=== PATIENT | male | born 1965 | race Caucasian/White ===

== ENCOUNTER 2020-11-13 06:17 | Outpatient (REF) | payer OTHER, SELFPAY ==
[2020-11-13 07:37] LABS: Blood Urea Nitrogen 5 mg/dL (9-16); Estimated Glomerular Filt Rate > 60
== END 2020-11-13 06:18 | disposition home or self-care (01) ==
LOC: HO.LAB 06:17
PROVIDERS: PCP Nurse Practitioner Family; Visit Provider Psychiatry & Neurology Neurology
DX: G40.909 Epilepsy, unspecified, not intractable, without status epilepticus (principal); F10.10 Alcohol abuse, uncomplicated
CPT/HCPCS: 36415; 82565; 84520

== ENCOUNTER 2020-11-17 08:16 | Outpatient (REF) | payer OTHER, SELFPAY ==
--- NOTE | ~2020-11-17 | MR_ITS ---
EXAMINATION: MR BRAIN WITHOUT AND WITH CONTRAST CLINICAL INFORMATION: Seizure disorder. COMPARISON: CT head from 07/02/2019. TECHNIQUE: MRI of the brain was obtained using routine sequences without and following the administration of 7.5 mL of Gadavist intravenous contrast. FINDINGS: No focal restricted diffusion is demonstrated to suggest acute or subacute cerebral ischemia. There is a 0.6 cm lesion within the left lentiform nucleus that demonstrates central T2 hyperintensity and peripheral T2 hypointensity with susceptibility artifact, consistent with a small cavernoma. There is also a small focus of encephalomalacia adjacent cortical susceptibility artifact in the left temporal lobe. Mild basal ganglia mineralization. No evidence of acute hemorrhagic products on heme-sensitive imaging. Scattered periventricular, deep white matter, and brainstem T2 FLAIR hyperintensity most commonly seen with moderate underlying microangiopathy. Proportional prominence of the ventricles and sulcal spaces without evidence of obstructive hydrocephalus. No abnormal mass effect. No midline shift. The hippocampi are symmetric in size, contour, and signal intensity. The temporal horns appear symmetric. However, the hippocampi qualitatively appear decreased in volume bilaterally. Normal appearance of the pituitary gland. Normal positioning of the cerebellar tonsils. Normal arterial and venous vascular flow voids are present. No abnormal contrast enhancement. Normal, homogeneous marrow signal. Mild mucosal thickening of the paranasal sinuses. No signal abnormalities within the mastoids. MR/MR head/brain wo/w con IMPRESSION: 1. No acute intracranial abnormalities. No abnormal intracranial enhancement. 2. Moderate nonspecific white matter changes most commonly seen with microangiopathy. Generalized cerebral volume loss. 3. Symmetric appearance of the hippocampi. However, the hippocampi qualitatively appear decreased in volume. This may be related to generalized cerebral volume loss. If clinically indicated, quantitative volume studies may further characterize the possibility of mesial temporal focused neurodegeneration. 4. 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
== END 2020-11-17 08:17 | disposition home or self-care (01) ==
LOC: HO.MRI 08:16
PROVIDERS: PCP Nurse Practitioner Family; Visit Provider Psychiatry & Neurology Neurology
DX: G40.909 Epilepsy, unspecified, not intractable, without status epilepticus (principal)
CPT/HCPCS: 70553; A9585

== ENCOUNTER 2021-04-27 10:34 | Outpatient (REF) | payer OTHER, SELFPAY ==
[2021-04-27 11:49] LABS: Appearance Urine CLEAR; Color Urine YELLOW; Glucose Urine UA NEG (NEG); Leukocyte Esterase Urine NEG (NEG); Nitrite Urine NEG (NEG); UACC Culture Trigger NO; Urine Blood TRACE (NEG); Urine Ketones 5 MG/DL (NEG); Urine Protein 2+ MG/DL (NEG-TRACE)
[2021-04-27 12:17] LABS: Alanine Aminotransferase 31 U/L (0-40); Albumin Level 4.4 g/dL (3.5-5.0); Alkaline Phosphatase 101 U/L (39-117); Anion Gap 16 (12-20); Aspartate Amino Transferase 70 U/L (5-37); Bilirubin Total 0.6 mg/dL (0.0-1.0); Blood Urea Nitrogen 13 mg/dL (9-16); Calcium 9.7 mg/dL (8.4-10.2); Carbon Dioxide 22 mmol/L (22-29); Chloride 98 mmol/L (96-108); Cholesterol 213 mg/dL; Estimated Glomerular Filt Rate > 60; Glucose Fasting 123 mg/dL (60-99); HDL Cholesterol 89 mg/dL; LDL Cholesterol Calculated 98 mg/dl; Sodium 132 mmol/L (135-145); Total Protein 8.2 g/dL (6.5-8.0); Triglycerides 131 mg/dL
[2021-04-27 12:28] LABS: RBC Urine 0-2 /HPF (0); WBC Urine 0 /HPF (0-4)
[2021-04-27 12:41] LABS: Prostate Specific Antigen Scr 0.79 ng/mL (<0.05-4.0); TSH reflex Free T4 1.27 uIU/mL (0.32-4.0)
== END 2021-04-27 10:35 | disposition home or self-care (01) ==
LOC: HO.HMGCLDS 10:34
PROVIDERS: PCP Nurse Practitioner Family; Visit Provider Nurse Practitioner Family
DX: Z12.5 Encounter for screening for malignant neoplasm of prostate (principal); R56.9 Unspecified convulsions; F10.10 Alcohol abuse, uncomplicated
CPT/HCPCS: 36415; 80053; 80061; 81001; 84153; 84443

== ENCOUNTER 2021-06-04 12:33 | Outpatient (REF) | payer OTHER, SELFPAY ==
[2021-06-04 15:16] LABS: MANUAL DIFF FLAG NO
[2021-06-04 15:28] LABS: Basophils Absolute Auto 0.1 X10*3/uL (0.0-0.2); Basophils Percent Auto 1.2 % (0-2); Eosinophils Absolute Auto 0.3 X10*3/uL (0.0-0.4); Eosinophils Percent Auto 3.8 % (0-4); Hematocrit 42.9 % (42.0-52.0); Hemoglobin 14.2 g/dl (14.0-18.0); Imm Gran Abs Auto 0.02 X10*3/uL (0.00-0.03); Imm Gran Pct Auto 0.3 % (0.0-0.4); Lymphocytes Absolute Auto 1.7 X10*3/uL (1.2-4.9); Lymphocytes Percent Auto 26.2 % (20-40); Mean Corpuscular HGB Conc 33.1 g/dl (31.0-36.0); Mean Corpuscular Hemoglobin 29.7 pg (27.0-33.0); Mean Corpuscular Volume 89.7 fL (80.0-98.0); Mean Platelet Volume 10.5 fL (9.4-12.4); Monocytes Absolute Auto 0.8 X10*3/uL (0.1-1.2); Monocytes Percent Auto 12.6 % (2-11); Neutrophils Absolute Auto 3.6 x10*3/uL (2.0-8.3); Neutrophils Percent Auto 55.9 % (45-73); Platelet Count 115 X10*3/uL (160-400); Red Blood Count 4.78 X10*6/uL (4.60-5.80); Red Cell Distribution Width 13.8 % (11.0-16.0); White Blood Count 6.5 X10*3/uL (4.8-10.8)
[2021-06-04 15:33] LABS: Iron 75 mcg/dL (45-160); Percent Iron Saturation 17 % (15-50); Total Iron Binding Capacity 429 mcg/dL (228-428); Unsaturated Iron Binding 354 ug/dL
[2021-06-04 16:01] LABS: Ferritin 30 ng/mL (20-250)
== END 2021-06-04 12:34 | disposition home or self-care (01) ==
LOC: HO.HMGCLDS 12:33
PROVIDERS: PCP Nurse Practitioner Family; Visit Provider Nurse Practitioner Family
DX: E83.19 Other disorders of iron metabolism (principal)
CPT/HCPCS: 36415; 81256; 82728; 83540; 85025

== ENCOUNTER 2024-05-14 14:38 | Outpatient (AMB) | payer OTHER, SELFPAY ==
--- NOTE | 2024-05-14 14:40 | A.OFFPC_ITS ---
Vital Signs 05/14/24 14:42 Height 5 ft 5 in Weight 177 lb BMI 29.5 BP 142/80 H Blood Pressure Location Rt brachial Position Sitting Pulse 86 Pulse Source Pulse Oximeter Pulse Oximetry (%) 97 Intake Visit Reasons: Regular visit Intake Note: pt is here for follow up, requesting referral for podiatry. Allergies cat dander [CAT] Allergy (Unknown, Verified 05/14/24 15:03) WATERY EYES Medication List - Last Reconciled 05/14/24 by VERN Ferrari clonidine HCl 0.1 mg PO TID folic acid 1 mg PO DAILY gabapentin 300 mg PO DAILY 90 days lisinopril 10 mg PO DAILY 90 days melatonin 6 mg PO BEDTIME multivitamin with folic acid 400 mcg (Daily-Aure (with folic acid)) 1 tab PO DAILY naproxen 500 mg PO BID PRN sertraline 150 mg PO DAILY thiamine HCl (vitamin B1) 200 mg PO DAILY trazodone 100 mg PO BEDTIME PRN 30 days Tobacco use date assessed: 05/14/24 Dental Screening Dental Screen Date: 05/14/24 Did you have a dental visit in the last 12 months?: Yes Did you have a dental problem in the last 6 months where you did not have access to dental care?: No Was dental information given to patient?: Patient has dentist HPI Regular visit HPI Details History of Present Illness The patient is a 58-year-old male presenting with a recent episode of pneumothorax and bacterial pneumonia/sepsis. The condition began approximately two weeks ago with severe coughing and an inability to stand due to weakness. The patient visited [facility] in [place], [place], and was told he could not be released due to the severity of his condition, which included septicemia. Imaging showed multiple pockets of bacteria in the lungs, suggesting pneumonia complicated by a pneumothorax. The patient remained in the ICU for six days and was treated with intravenous antibiotics. During the course of his treatment, he received three chest tubes to drain fluid and underwent surgery to clear the infection, at which point minimally invasive techniques were insufficient, necessitating an open approach. The patient was discharged a week prior to this visit and is currently on oral antimicrobial therapy with Augmentin. NOTE: documentation produced from pt and his notes from the hospital. Missing medical notes (peer to peer). #2 neuropathy of bilat feet x years, it's only getting worse . 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 - Engages in recreational hockey, had an alcohol slip-up post-game after a year and a half of sobriety. - Suffers from neuropathy, previously ma intained with gabapentin. - Reports weight changes but specifics a re not detailed. Review of Systems - General: Reports night sweats and chil ls. denies any CP - Respiratory: Reports occasional coughi ng; no dyspnea currently. - Neurological: Denies residual effects from prior stroke. - Musculoskeletal: Reports chronic foot numbness (bilat). Physical Exam A+o S1s2 -lungs slightly dim to right base/right side, though moving air bilat - Respiratory- Right upper lateral torso with large healing stapled incision, well approximated with no signs of infection. smaller laceration with ameena (just inferior to large incision), all well approximated without signs of infection. 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 Results - Labs: Not detailed during the discussi on. - Imaging: Chest imaging showed pneumoth orax and pneumonia with bacterial pockets. - Procedures: Three chest tubes placed f or fluid drainage; surgery for infection clearance. Plan - For pneumothorax and bacterial pneumon ia: Continue Augmentin. Follow-up with thoracic specialists for further evaluation and staple removal tomorrow. - For neuropathy: Recommend EMG testing to evaluate nerve function and source of neuropathy. - Coordinate with thoracic specialist to ensure comprehensive continuity of care and to address ongoing symptoms. - Discussed the potential impact of alco hol use on health and importance of adherence to current treatment. -IS given to pt to use at home Patient was informed and verbally consented to the use of an ambient scribe for clinic note documentation during this visit. Discussion Notes I discussed with the patient the severity of his recent illness, the necessity of hospital admission, and the seriousness of the pneumothorax and bacterial pneumonia. We reviewed the treatment approach, including the ICU stay and the surgical procedure. The risks associated with both his initial presentation and the surgical intervention were highlighted, emphasizing the need for adherence to follow-up care and medical advice. We outlined the plan for an upcoming thoracic follow-up and the continuation of oral antibiotics. We discussed neuropathy and planned EMG testing to elucidate underlying issues. I reiterated the importance of maintaining sobriety and monitoring any symptoms that might necessitate earlier evaluation. Patient Instructions - Continue taking Augmentin as prescribe d to complete the full course of antibiotics. - Attend the follow-up appointment with the thoracic specialist and provide them with necessary documentation and contact information. - Monitor incision sites for signs of in fection such as increased redness, swelling, or discharge and report any concerning changes. - Use the incentive spirometer as instru cted to aid lung recovery. - Schedule EMG testing for neuropathy ev aluation. - Maintain adherence to medical advice r egarding lifestyle modifications, specifically regarding alcohol consumption. - Return for a follow-up appointment in three months or sooner if symptoms worsen. [facility] Medical History (Updated 05/14/24 @ 15:20 by Tyler Chan [facility]) Stroke Barretts esophagus Cerebral aneurysm Chronic GERD Hypertension Peripheral neuropathy Alcohol withdrawal seizure Surgical History History of torn meniscus of right knee Family History Father Aneurysm Mother No problems noted. 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 1. Little interest or pleasure in doing things: several days 2. Feeling down, depressed, or hopeless: several days 3. Trouble falling or staying asleep, or sleeping too much: several days 4. Feeling tired or having little energy: several days 5. Poor appetite or overeating: several days 6. Feeling bad about yourself - or that you are a failure or have let yourself or your family down: not at all 7. Trouble concentrating on things, such as reading the newspaper or watching television: not at all 8. Moving or speaking so slowly that other people could have noticed. Or the opposite - being so fidgety or restless that you have been moving around a lot more than usual: several days 9. Thoughts that you would be better off or of hurting yourself in some way: not at all Total score: 6 Depression Screening Interpretation: Negative Depression Screening Done: Yes 99531 - PHQ-9 Billing: Yes Source: Developed by Drs. Jesús Christy, Maye Munoz, Vincent Casillas and colleagues, with an educational neelam from [employer]. Thrive Questionnaire Date Thrive assessed: 05/14/24 I am a: Patient What is your living situation today?: I have a steady place to live Within the past 12 months, did the food you bought not last and you didn't have the money to get more?: Never true Within the past 12 months, did you worry whether your food would run out before you got money to buy more?: Never true Do you have trouble paying for medicines?: No Do you have trouble getting transportation to medical appointments?: No Do you have trouble paying your heating and electricity bill?: No Do you have trouble taking care of your child, family member or friend?: No Do you have trouble with day-to-day activities such as bathing, preparing meals, shopping, managing finances, etc.?: No Are you currently unemployed and looking for a job?: No Are you interested in more education?: No Please select the resources that you would like help with: None Currently or been in a relationship where the following occur: No concerns reported THRIVE Score: 0 AUDIT C Alcohol Use Questionnaire (AUDIT-C) 1. How often do you have a drink containing alcohol?: Monthly or less 2. How many drinks containing alcohol do you have on a typical day when you are drinking?: 1 or 2 3. How often do you have six or more drinks on one occasion?: Less than monthly Total Score: 2 Score Reviewed/Action Taken: Yes JARED-7 AMB Questionnaire JARED-7 Date JARED - 7 assessed: 05/14/24 Feeling nervous, anxious, or on edge: 1 = Several days Not being able to stop or control worryin = Not at all Worrying too much about different things: 0 = Not at all Trouble relaxin = Several days Being so restless that it is hard to sit still: 1 = Several days Becoming easily annoyed or irritable: 0 = Not at all Feeling afraid as if something awful might happen: 0 = Not at all Total JARED-7 score (0-4 normal; 5-9 mild; 10-14 moderate; 15-21 severe): 3 Source: Developed by Drs. Jesús Christy, Maye Munoz, Vincent Casillas and colleagues, with an educational neelam from [employer]. JARED-7 Assessment Billing JARED-7 Assessment Tool: JARED-7 Assessment 50159 Physical exam (Primary Care) Vital Signs: Last Vital Signs Pulse 86 05/14/24 14:42 BP 142/80 H 05/14/24 14:42 Pulse Ox 97 05/14/24 14:42 BMI result Body Mass Index 29.5 Tobacco/Smoking Status: Tobacco use Status Tobacco use date assessed 05/14/24 05/14/24 14:43 Patient Tobacco Use Status Never used Tobacco 05/14/24 14:43 e-Cigarette/Vaping Use Never Used 05/14/24 14:43 PHQ-9: PHQ-9 Score PHQ-9: Total score 6 05/14/24 14:43 Depression Screening Interpretation: Negative Thrive Assessment: Date of Thrive Assessment Date Thrive assessed 05/14/24 05/14/24 14:43 Currently or been in a relationship where the following occur: No concerns reported Coding Level of Care Code Est Pt Level 4 (68032) Diagnoses Pneumothorax J93.9 Sepsis A41.9 Vitamin D deficiency E55.9 Peripheral neuropathy G62.9 Additional Codes JARED-7 Assessment Billing - JARED-7 Assessment Tool: JARED-7 Assessment 34621 ([id number]) PHQ-9 - 23618 - PHQ-9 Billing: Yes ([id number]) Assessment & Plan Assessment & Plan (1) Pneumothorax: Code(s): J93.9 - Pneumothorax, unspecified Category: Medical (2) Sepsis: Code(s): A41.9 - Sepsis, unspecified organism Category: Medical (3) Vitamin D deficiency: Code(s): E55.9 - Vitamin D deficiency, unspecified Category: Medical (4) Peripheral neuropathy: Code(s): G62.9 - Polyneuropathy, unspecified Category: Medical Plan . Orders: Orders TSH reflex Free T4 Today A41.9 - Sepsis, unspecified organism, J93.9 - Pneumothorax, unspecified UA CC w/rflx Micro + Cult Today A41.9 - Sepsis, unspecified organism, J93.9 - Pneumothorax, unspecified Lipid Panel Today A41.9 - Sepsis, unspecified organism, J93.9 - Pneumothorax, unspecified Vitamin D 25-OH Total Today E55.9 - Vitamin D deficiency, unspecified NE nerve conduction velocity Today G62.9 - Polyneuropathy, unspecified Complete Blood Count Auto Diff Today A41.9 - Sepsis, unspecified organism, J93.9 - Pneumothorax, unspecified Comprehensive [place]. Panel Fast Today A41.9 - Sepsis, unspecified organism, J93.9 - Pneumothorax, unspecified Prostate Specific Antigen Scr Today A41.9 - Sepsis, unspecified organism, E55.9 - Vitamin D deficiency, unspecified, J93.9 - Pneumothorax, unspecified NE electromyogram (EMG) Today G62.9 - Polyneuropathy, unspecified
[2024-05-14 14:42] VITALS: BP 142/80; PULSE 86; O2SAT 97; BMI 29.5
== END 2024-05-14 15:24 | disposition home or self-care (01) ==
PROVIDERS: PCP Nurse Practitioner Family; Visit Provider Nurse Practitioner Family
DX: J93.9 Pneumothorax, unspecified (principal); A41.9 Sepsis, unspecified organism; E55.9 Vitamin D deficiency, unspecified; G62.9 Polyneuropathy, unspecified

== ENCOUNTER → 2024-05-14 14:38 | Outpatient (BNVA) | payer OTHER, SELFPAY | PROVIDERS: PCP Nurse Practitioner Family; Visit Provider Nurse Practitioner Family | DX: J93.9 Pneumothorax, unspecified (principal); A41.9 Sepsis, unspecified organism; J15.9 Unspecified bacterial pneumonia; G62.9 Polyneuropathy, unspecified; E55.9 Vitamin D deficiency, unspecified | CPT/HCPCS: 96127 ==

== ENCOUNTER 2024-07-04 13:28 | Outpatient (REF) | payer OTHER, SELFPAY ==
--- NOTE | 2024-07-04 13:32 | EMG_ITS ---
Chief complaint: Worsening feet numbness, not radicular, denies back pain Diagnosed peripheral neuropathy many years ago by Dr. Guillen. Reason for referral: Evaluate for peripheral neuropathy Referred by: Tyler Guy NP Procedure done: Bilateral lower extremity NCS/EMG Precautions and/or limitations: None The limb temperature was monitored continuously and remained between 32-36 degrees C during the performance of the NCS. Nerve Conduction Studies Anti Sensory Summary Table ?Stim Site NR Onset (ms) Norm Onset (ms) Peak (ms) Norm Peak (ms) O-P Amp (?V) Norm O-P Amp Site1 Site2 Delta-0 (ms) Dist (cm) Matt (m/s) Norm Matt (m/s) Left Sural Anti Sensory (Lat Mall) Calf NR <4.0 >5.0 Calf Lat Mall 14.0 Right Sural Anti Sensory (Lat Mall) Calf NR <4.0 >5.0 Calf Lat Mall 14.0 Motor Summary Table ?Stim Site NR Onset (ms) Norm Onset (ms) O-P Amp (mV) Norm O-P Amp iAmp (mV) Amp (1st) (%) Site1 Site2 Delta-0 (ms) Dist (cm) Matt (m/s) Norm Matt (m/s) Right Peroneal Motor (Ext Dig Brev) Ankle ? 4.0 <4.0 6.9 >2.5 8.7 100.0 Ankle Ext Dig Brev 4.0 0.0 B Fib ? 10.7 6.1 7.4 88.4 B Fib Ankle 6.7 28.5 43 >40 Poplt ? 11.6 5.9 7.2 85.5 Poplt B Fib 0.9 5.0 56 >40 Left Tibial Motor (Abd [place] Brev) Ankle ? 3.6 <5 5.8 >2.5 8.1 100.0 Ankle Abd [place]le[place] Brev 3.6 0.0 Knee ? 11.9 4.5 6.4 77.6 Knee Ankle 8.3 36.0 43 >40 Right Tibial Motor (Abd [place] Brev) Ankle ? 3.4 <5 11.4 >2.5 15.6 100.0 Ankle Abd [place] Brev 3.4 0.0 Knee ? 10.9 8.6 11.8 75.4 Knee Ankle 7.5 40.0 53 >40 EMG ?Side Muscle Nerve Root Ins Act Fibs Psw Amp Dur Poly Recrt Int Pat Comment Right AbdHallucis MedPlantar S1-2 Nml Nml Nml Nml Nml 0 Nml Complete Right AntTibialis Dp Br Peron L4-5 Nml Nml Nml Nml Nml 0 Nml Complete Right PostTibialis Tibial L5, S1 Nml Nml Nml Nml Nml 0 Nml Complete Right MedGastroc Tibial S1-2 Nml Nml Nml Nml Nml 0 Nml Complete Right VastusMed Femoral L2-4 Nml Nml Nml Nml Nml 0 Nml Complete Left AbdHallucis MedPlantar S1-2 Incr 1+ 1+ Nml Nml 0 Nml Complete Left AntTibialis Dp Br Peron L4-5 Nml Nml Nml Nml Nml 0 Nml Complete Left PostTibialis Tibial L5, S1 Nml Nml Nml Nml Nml 0 Nml Complete Left MedGastroc Tibial S1-2 Nml Nml Nml Nml Nml 0 Nml Complete Left VastusMed Femoral L2-4 Nml Nml Nml Nml Nml 0 Nml Complete Paraspinal EMG ?Side Muscle Nerve Root Ins Act Fibs Psw Comment Right Lumbar Upper Rami Nml Nml Nml Right Lumbar Mid Rami Nml Nml Nml Right Lumbar Lower Rami Nml Nml Nml Left Lumbar Upper Rami Nml Nml Nml Left Lumbar Mid Rami Nml Nml Nml Left Lumbar Lower Rami Nml Nml Nml FINDINGS: Bilateral sural nerves absent response. All other nerves tested were within normal. Concentric needle EMG was performed in selected muscles of the bilateral lower extremity and lumbar paraspinals. Study revealed signs of electric abnormalities as shown in the table above. Left AH showed increased insertional activity, PSWs and fibrillations. No denervation on lumbar paraspinals. IMPRESSION: 1. This is an abnormal study. 2. There is electrodiagnostic evidence for sensorimotor axonal distal/peripheral neuropathy. 3. There is no electrodiagnostic evidence for peroneal neuropathy, tibial neuropathy. lumbosacral plexopathy, or lumbar radiculopathy. Thank you for your kind referral. Rachel Saenz MD, ELIZA Board Certified, [place] [employer] and [employer] (ABPMR) Board Certified, [place] Board of Electrodiagnostic Medicine (ABEM) CODIN 20001 x 2 MTDD
== END 2024-07-04 13:29 | disposition home or self-care (01) ==
LOC: HO.NEURO 13:28
PROVIDERS: PCP Nurse Practitioner Family; Referring Provider Hospitalist; Visit Provider Nurse Practitioner Family
DX: G62.9 Polyneuropathy, unspecified (principal); R20.0 Anesthesia of skin
CPT/HCPCS: 95886; 95909

== ENCOUNTER → 2024-07-04 13:32 | Outpatient (BNV) | payer OTHER, SELFPAY | PROVIDERS: PCP Nurse Practitioner Family; Referring Provider Hospitalist; Visit Provider Physical Medicine & Rehabilitation | DX: G62.89 Other specified polyneuropathies (principal) | CPT/HCPCS: 95886; 95909 ==

== ENCOUNTER 2024-08-14 14:16 | Outpatient (AMB) | payer OTHER, SELFPAY ==
[2024-08-14 14:20] VITALS: BP 128/80; PULSE 68; TEMP 36.6; O2SAT 97
--- NOTE | 2024-08-14 14:20 | A.OFFPC_ITS ---
Vital Signs 08/14/24 14:20 Height 5 ft 5 in Weight 180 lb BMI 30.0 BP 128/80 Blood Pressure Location Lt brachial Position Sitting Pulse 68 Pulse Source Pulse Oximeter Temp 97.8 F Temp Source Oral Pulse Oximetry (%) 97 Intake Visit Reasons: 3 months f/up Allergies cat dander [CAT] Allergy (Unknown, Verified 08/14/24 14:46) WATERY EYES Medication List - Last Reconciled 08/14/24 by Tyler Chan BATH MIX OPERATOR- clonidine HCl 0.1 mg PO TID folic acid 1 mg PO DAILY gabapentin 300 mg PO DAILY 90 days lisinopril 60 mg PO DAILY melatonin 6 mg PO BEDTIME metoprolol succinate ER 50 mg PO BID multivitamin with folic acid 400 mcg (Daily-Aure (with folic acid)) 1 tab PO DAILY naproxen 500 mg PO BID PRN omeprazole 20 mg PO BID sertraline 150 mg PO DAILY thiamine HCl (vitamin B1) 200 mg PO DAILY trazodone 100 mg PO BEDTIME PRN 30 days Tobacco use date assessed: 08/14/24 Dental Screening Dental Screen Date: 08/14/24 Did you have a dental visit in the last 12 months?: Yes Did you have a dental problem in the last 6 months where you did not have access to dental care?: No Was dental information given to patient?: Patient has dentist HPI 3 months f/up HPI Details Chief Complaint The patient expressed concerns regarding the management of his peripheral neuropathy. 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 Gabapentin offers partial relief. The patient was referred to neurology for further evaluation, and a request for a specific neurologist has been made. He also manages essential hypertension with an increased dose of lisinopril, with current control being noted ([facility] 60[facility]). [facility] are [facility], with additional labs scheduled. He has abstained from alcohol for an extended period, with improved cognitive clarity and mood reported. 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 - Regular follow-ups [place] conducte d at the [place]. Health Maintenance - Encouraged to maintain alcohol abstine nce for health benefits. - Advised completion of laboratory evalu ations as planned, ensuring fasting prior to testing. Review of Systems - Neurological: Reports ongoing peripher al neuropathy symptoms despite treatment with gabapentin. Physical Exam General: Cooperative, healthy appearing, comfortable, no acute distress and well developed Orientation: Patient oriented x3 Limitations: No limitations Head: Normal to inspection Ears: Hearing grossly normal bilaterally Nose: Normal external nose present Face and sinus: Normal facial exam Eyes: Appearance normal, both eyes and all related structures Neck: Normal visual inspection and Yes full ROM Respiratory: Normal respiratory effort and able to speak in complete sentences. Clear to auscultation bilaterally Cardiovascular: Regular rate and rhythm. Normal S1 and S2 GI: Normal to inspection. Soft to palpation and nontender Skin: No rashes or lesions noted Neuro: Patient oriented x3 Extremities: Normal to inspection Results - Tests and Diagnostics: Sensory motor a xonal distal peripheral neuropathy confirmed by EMG. Plan The follow-up visit focused on the management of the patient's chronic conditions, including peripheral neuropathy and essential hypertension. Gabapentin continues to be utilized for neuropathy, with the patient seeking consultation with a preferred neurologist, referral made accordingly. Essential hypertension management via increased lisinopril was reviewed, with adequate control observed. Continued abstinence from alcohol has resulted in noticeable improvements in mood and cognitive function, which should be maintained. Laboratory evaluations are scheduled with fasting instructions confirmed. Discussion Notes During our discussion, I reviewed the management and continuation of gabapentin therapy for peripheral neuropathy, acknowledging its efficacy in symptom alleviation. A neurology follow-up with the requested specialist was arranged. I emphasized the importance of continued control of essential hypertension through the increased lisinopril regimen and the significance of fasting for the pending laboratory tests. I advised ongoing alcohol abstinence considering its positive impact on the patient's mental health and overall wellbeing. We discussed scheduling follow-up appointments as needed to assess the therapeutic effect of ongoing interventions and the importance of sharing future [place] lab results for comprehensive care coordination. Patient Instructions - Continue gabapentin as prescribed. - Follow-up with the preferred neurologi st as referral is processed. - Continue lisinopril at 60 mg daily to manage blood pressure. - Schedule and complete labs next week, ensuring to fast beforehand. - Maintain abstinence from alcohol due t o marked benefits in mood and cognition. [facility] Medical History Stroke Barretts esophagus Cerebral aneurysm Chronic GERD Hypertension Peripheral neuropathy Alcohol withdrawal seizure Surgical History History of torn meniscus of right knee Family History Father Aneurysm Mother No problems noted. 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 1. Little interest or pleasure in doing things: not at all 2. Feeling down, depressed, or hopeless: several days 3. Trouble falling or staying asleep, or sleeping too much: more than half the days 4. Feeling tired or having little energy: more than half the days 5. Poor appetite or overeating: more than half the days 6. Feeling bad about yourself - or that you are a failure or have let yourself or your family down: not at all 7. Trouble concentrating on things, such as reading the newspaper or watching television: several days 8. Moving or speaking so slowly that other people could have noticed. Or the opposite - being so fidgety or restless that you have been moving around a lot more than usual: several days 9. Thoughts that you would be better off or of hurting yourself in some way: not at all Total score: 9 Depression Screening Interpretation: Positive (denies any SI or HI, has a psychiatrist, has a therapist) Depression Screening Follow-up: Existing condition Depression Screening Done: Yes 04539 - PHQ-9 Billing: Yes Source: Developed by Drs. Jesús Christy, Maye Munoz, Vincent Casillas and colleagues, with an educational neelam from [employer]. Thrive Questionnaire Date Thrive assessed: 08/14/24 I am a: Patient What is your living situation today?: I have a steady place to live Within the past 12 months, did the food you bought not last and you didn't have the money to get more?: Never true Within the past 12 months, did you worry whether your food would run out before you got money to buy more?: Never true Do you have trouble paying for medicines?: No Do you have trouble getting transportation to medical appointments?: No Do you have trouble paying your heating and electricity bill?: No Do you have trouble taking care of your child, family member or friend?: No Do you have trouble with day-to-day activities such as bathing, preparing meals, shopping, managing finances, etc.?: No Are you currently unemployed and looking for a job?: Yes Are you interested in more education?: Yes Please select the resources that you would like help with: Job search/training Currently or been in a relationship where the following occur: No concerns reported THRIVE Score: 0 AUDIT C Alcohol Use Questionnaire (AUDIT-C) 1. How often do you have a drink containing alcohol?: Monthly or less 2. How many drinks containing alcohol do you have on a typical day when you are drinking?: 1 or 2 3. How often do you have six or more drinks on one occasion?: Never Total Score: 1 Score Reviewed/Action Taken: Yes JARED-7 AMB Questionnaire JARED-7 Date JARED - 7 assessed: 08/14/24 Feeling nervous, anxious, or on edge: 1 = Several days Not being able to stop or control worryin = Several days Worrying too much about different things: 1 = Several days Trouble relaxin = Not at all Being so restless that it is hard to sit still: 0 = Not at all Becoming easily annoyed or irritable: 1 = Several days Feeling afraid as if something awful might happen: 0 = Not at all Total JARED-7 score (0-4 normal; 5-9 mild; 10-14 moderate; 15-21 severe): 4 Source: Developed by Drs. Jesús Christy, Maye Munoz, Vincent Casillas and colleagues, with an educational neelam from [employer]. JARED-7 Assessment Billing JARED-7 Assessment Tool: JARED-7 Assessment 80552 Physical exam (Primary Care) Vital Signs: Last Vital Signs Temp 97.8 F 08/14/24 14:20 Pulse 68 08/14/24 14:20 BP 128/80 08/14/24 14:20 Pulse Ox 97 08/14/24 14:20 BMI result Body Mass Index 30.0 Tobacco/Smoking Status: Tobacco use Status Tobacco use date assessed 08/14/24 08/14/24 14:21 Patient Tobacco Use Status Never used Tobacco 08/14/24 14:21 e-Cigarette/Vaping Use Never Used 08/14/24 14:21 PHQ-9: PHQ-9 Score PHQ-9: Total score 9 08/14/24 14:21 Depression Screening Interpretation: Positive (denies any SI or HI, has a psychiatrist, has a therapist) Depression Screening Follow-up: Existing condition Thrive Assessment: Date of Thrive Assessment Date Thrive assessed 08/14/24 08/14/24 14:21 Currently or been in a relationship where the following occur: No concerns reported Coding Level of Care Code Est Pt Level 3 (59997) Diagnoses Hypertension I10 Peripheral neuropathy G62.9 Additional Codes JARED-7 Assessment Billing - JARED-7 Assessment Tool: JARED-7 Assessment 90212 ([id number]) PHQ-9 - 67478 - PHQ-9 Billing: Yes ([id number]) Assessment & Plan Assessment & Plan (1) Hypertension: Code(s): I10 - Essential (primary) hypertension Category: Medical (2) Peripheral neuropathy: Code(s): G62.9 - Polyneuropathy, unspecified Category: Medical Plan . Medications: Changed From lisinopril 10 mg PO DAILY 90 days 90 tabs 1RF To lisinopril 60 mg PO DAILY
--- OUTSIDE RECORDS SUMMARY | 2024-08-14 17:13 | XMS_ITS | Encounter Summary ---
Author Name [facility] [place] Address [address] [place] [id number] Care Team Providers Care Tool Sharpener Name Role Phone JARROD KOHLER Primary Care Provider Unavailabl e Insurance Providers: [...] Christianson's Name Patient's Relationship to Policy Christianson [facility] CE ORGANIZAT ION [facility]ALT H [facility] Dec 11, 2023 [id number] [phone] NALLELY,LAWRENCE ID PATIENT [facility] CE ORGANIZAT ION FAIRV IEW COMMO NS Nov 24, 2021 [id number] NALLELY,LAWRENCE ID PATIENT [facility] CE ORGANIZAT ION [facility] Sep 11, 2019 [id number] [phone] NALLELY,LAWRENCE ID PATIENT [facility] CE ORGANIZAT ION FAIRV IEW COMMO NS Apr 12, 2012 [id number] [phone] NALLELY,LAWRENCE ID PATIENT OPTUM RX PRESCRIPT ION [facility] PE May 14, 2024 [facility] [id number] [phone] NALLELY,LAWRENCE ID PATIENT OPTUM RX PRESCRIPT ION [facility]/ [facility] Nov 24, 2021 [facility] [id number] [id number] NALLELY,LAWRENCE ID PATIENT OPTUM RX PRESCRIPT ION [facility] [place] Nov 24, 2021 [facility] [id number] [id number] NALLELY,LAWRENCE ID PATIENT OPTUM RX PRESCRIPT ION HEALT H [facility] Sep 11, 2019 [facility] [id number] [phone] NALLELY,LAWRENCE ID PATIENT OPTUM RX PRESCRIPT ION HEALT H [facility] Aug 17, 2004 [facility] [id number] [phone] NALLELY,LAWRENCE ID PATIENT Selected Encounter This section includes the information on record at NH for the Encounter. Date/Time Encounter Type Encounter Description Reason Pro vider Source Jul 16, 2024 02:19 PM Outpatient Encounter PRIMARY CARE/MEDICINE IHE Encounter Template Text not used by NH Plan of Treatment: Future Appointments (+ 6 months) and Future Tests (+/- 45 days) The Plan of Treatment section includes future care activities for the patient from all NH treatmentfacilities. This section includes future appointments and future orders which are active, pending or scheduled. Future Appointments This section includes appointments that were scheduled to occur 6 months from the date of the Encounter, up to a maximum of 20 appointments. The data comes from all NH treatment facilities. Appointment Date/Time Appointment Type Appointme nt Facility Name Jul 30, 2024 10:00 AM AMBULATORY [facility] MEDICINE [facility] Jul 30, 2024 10:30 AM AMBULATORY - PSYCHIATRY [facility] Aug 28, 2024 11:00 AM AMBULATORY - PSYCHIATRY [facility] Sep 12, 2024 10:00 AM AMBULATORY - MEDICINE [facility] October 24, 2024 02:00 PM AMBULATORY - MEDICINE [facility] Active, Pending, and Scheduled Orders This section includes a listing of several types of active, pending, and scheduled orders, including clinic medications orders, diagnostic test orders, procedure orders and consult orders; where the start date of the order is 45 days before the date of the Encounter or 45 days after the date of theEncounter. The data comes from all [place] treatment facilities. Test Date/Time Test Type Test Details Facility Name Jun 28, 2024 03:38 PM Consult Order EKG TRACIN G/SPOPC OUTPT Cons Labeling Machine Operator's Choice [facility] Jul 16, 2024 02:18 PM Consult Order COMMUNITY CARE-COLONOSCOPY SCREENING WITH EGD Cons Labeling Machine Operator's [facility] Lab Results: +/- 30 days of the encounter This section includes the Chemistry and Hematology Lab Results on record with NH for the patient. Radiology Reports and Pathology Reports are provided separately, in subsequent sections. Lab Results This section contains the Chemistry/Hematology Results that were resulted 30 days before or 30 daysafter the date of the Encounter. Date/Time Source Result Type Result - Unit Interpretation Reference Range Comment Jul 16, 2024 01:28 PM [facility] LIVER FUNCTION Specimen Type: SERUM No comment entered. Ordering Provider: RASHAWN LOCO Report Released Date/Time: Jun 28, 2024 12:42 PM Reporting Lab: [address] [address] Performing Lab: [address] [address] PROTEIN,TOTAL 8.6 g/dL H 6.0-8.3 ALBUMIN 3.9 g/dL 3.5-5.0 ALKALINE PHOSPHATASE 98 U/L 40-150 AST 66 U/L H 5-34 ALT 42 U/L BILIRUBIN, TOTAL 0.4 mg/dL 0.2-1.2 Jul 16, 2024 01:28 PM [facility] MAGNESIUM Specimen Type: SERUM No comment entered. Ordering Provider: JARROD KOHLER Report Released Date/Time: Jul 16, 2024 01:10 PM Reporting Lab: [address] [address] Performing Lab: [address] [address] MAGNESIUM 1.4 mg/dL L 1.6-2.6 Jul 16, 2024 01:28 PM [facility] LIPID PANEL, NON FASTING Specimen Type: SERUM No comment entered. Ordering Provider: JARROD KOHLER Report Released Date/Time: Jul 16, 2024 01:10 PM Reporting Lab: [facility] [address] [address] Performing Lab: [address] [address] CHOLESTEROL 197 mg/dL TRIGLYCERIDE 79 mg/dL 0-150 LDL calculated 119 mg/dL 0-129 CHOL/HDL 3.2 HDL CHOLESTEROL 62 mg/dL H 40-60 Jul 16, 2024 01:28 PM [facility] BASIC METABOLIC PANEL (non-fasting) Spe cimen Type: SERUM No comment entered. Ordering Provider: JARROD KOHLER Report Released Date/Time: Jul 16, 2024 01:10 PM Reporting Lab: [address] [address] Performing Lab: [address] [address] UREA NITROGEN 7 mg/dL 7-25 GLUCOSE 136 mg/dL H 65-100 SODIUM 138 mmol/L 135-145 POTASSIUM 3.6 mmol/L 3.5-5.0 CHLORIDE 104 mmol/L 100-110 CO2 23 meq/L 20-30 CREATININE, Serum 0.99 mg/dL 0.50-1.40 eGFR(CKD-EPI 2020) 89 mL/min >60 Jul 16, 2024 01:28 PM [facility] CBC Specimen Type: BLOOD No comment entered. Ordering Provider: JARROD KOHLER Report Released Date/Time: Jul 16, 2024 01:10 PM Reporting Lab: [address] [address] Performing Lab: [address] [address] WBC 4.47 10*3/uL L 4.50-11.00 RBC 4.95 10*6/uL 4.23-5.66 HGB 12.6 g/dL L 12.8-17 HCT 39.9 39.2-50.4 MCV 80.6 fL L 82-99 MCHC 31.6 g/dL 30.8-35.1 PLT 114 10*3/uL L 140-360 RDW-CV 13.2 12.0-16.0 MCH 25.5 pg L 26.2-32.6 Social History: Smoking Status (Most current) and Tobacco Use (All prior to encounter date) This section includes the most current, and the historical, smoking and tobacco- related health factors from the NH facility where the Encounter took place. Current Smoking Status This section includes the most current smoking, or tobacco-related health factor, from the NH facility where the Encounter took place. Date/Time Current Smoking Status Comment Facil ity Feb 18, 2022 02:51 PM [facility] ADMIT TOBACCO SCREEN NO [facility] Tobacco Use History This section includes a history of the smoking, or tobacco-related health factors, that were collected on or before the date of the Encounter. The data comes from the [place] facility where the Encounter took place. Date/Time Smoking Status/Tobacco Use Comment F acility Feb 18, 2022 09:30 AM VA-TOBACCO NEVER USED [facility] Advance Directives: All historical and current Section Date Range: From patient's date of to the date document was created. This section includes ALL of a patient's completed or amended [place] Advance and Rescinded Directives. The entries below indicate that a directive exists for the patient, but an actual copy is not included with this document. The data comes from all [place] facilities. Date Advance Directives Provider Source Nov 22, 2022 ADVANCE DIRECTIVE DISCUSSION RAFAELA MANRIQUEZ [facility] Apr 20, 2022 ADVANCE DIRECTIVE S[facility] Encounter Notes: All associated encounter notes This section contains the clinical notes associated to the Encounter. Date/Time Encounter Note(s) Provider Source Jul 16, 2024 02:19 PM PREVENTIVE MEDICIN E NURSING NOTE: LOCAL TITLE: CLINICAL REMINDERS/NURSING STANDARD TITLE: PREVENTIVE MEDICINE NURSING NOTE DATE OF NOTE: JUL 16, 2024@14:19 ENTRY DATE: JUL 16, 2024@14:20:01 AUTHOR: ATA THOMASIGNER: URGENCY: STATUS: COMPLETED Advance Directive Screen MH AD: The patient's advance directive on file does not contain information about mental health treatment preferences. Homelessness/Food Insecurity Screen: In the past 2 months, have you been living in stable housing that you own, rent, or stay in as part of a household? Yes - Living in stable housing. Are you worried or concerned that in the next 2 months you may NOT have stable housing that you own, rent, or stay in as part of a household? No - Not worried about housing near future [facility] reports the following: Within the past 12 months, you worried whether your food would run out before you got money to buy more. Never true Within the past 12 months, the food you bought just didn't last and you didn't have money to get more. Never true Follow Up Colonoscopy: Colonoscopy is due based on information available to this reminder. A colonoscopy has been completed elsewhere and we are waiting for results. Influenza Immunization: Deferral / Refusal The patient declines to receive the recommended dose of seasonal influenza vaccine. Immunization: INFLUENZA, UNSPECIFIED FORMULATION Refusal Reason: PATIENT DECISION Patient refuses all immunization(s) in the FLU group Date Documented: 07/16/24 14:21 COVID-19 Immunization: Refused Moderna Monovalent COVID-19 vaccine Immunization: COVID-19 (MODERNA), MRNA, LNP-S, PF, 50 MCG/0.5 ML (AGES 12+ YEARS) Refusal Reason: PATIENT DECISION Patient refuses all immunization(s) in the COVID-19 group Date Documented: 07/16/24 14:21 Herpes Zoster (Shingles) Vaccine: The patient declines to receive the recommended dose of zoster (shingles) vaccine. Immunization: ZOSTER RECOMBINANT Refusal Reason: PATIENT DECISION Patient refuses all immunization(s) in the ZOSTER group Date Documented: 07/16/24 14:22 Hepatitis A Vaccine: Deferral/Refusal: The patient declines vaccination for hepatitis A. Immunization: HEP A, UNSPECIFIED FORMULATION Refusal Reason: PATIENT DECISION Patient refuses all immunization(s) in the HepA group Date Documented: 07/16/24 14:22 /gustabo/ ATA THOMAS LPN LPN Signed: 07/16/2024 14:22 ATA THOMAS [facility]
--- OUTSIDE RECORDS SUMMARY | 2024-08-14 17:13 | XMS_ITS | Encounter Summary ---
Author Name [facility] [place] Address [address] [place] [id number] Care Team Providers Care Engine Emission Technician Name Role Phone JARROD KOHLER Primary Care [...] Christianson's Name Patient's Relationship to Policy Christianson [facility] CE ORGANIZAT ION HEALT H [facility] Dec 11, 2023 [id number] NALLELY,LAWRENCE ID PATIENT [facility] CE ORGANIZAT ION FAIR[facility] IEW COMMO NS Nov 24, 2021 [id number] NALLELY,LAWRENCE ID PATIENT [facility] CE ORGANIZAT ION [facility] Sep 11, 2019 [id number] NALLELY,LAWRENCE ID PATIENT [facility] CE ORGANIZAT ION FAIRV IEW COMMO NS Apr 12, 2012 [id number] NALLELY,LAWRENCE ID PATIENT OPTUM RX PRESCRIPT ION [facility] PEE May 14, 2024 [facility] [id number] NALLELY,LAWRENCE ID PATIENT OPTUM RX PRESCRIPT ION HDHP/ HSA Nov 24, 2021 [facility] [id number] NALLELY,LAWRENCE ID PATIENT OPTUM RX PRESCRIPT ION HEALT H [place] Nov 24, 2021 [facility] [id number] [phone] NALLELY,LAWRENCE ID PATIENT OPTUM RX PRESCRIPT ION HEALT H [place] Sep 11, 2019 [facility] [id number] NALLELY,LAWRENCE ID PATIENT OPTUM RX PRESCRIPT ION HEALT H [place] Aug 17, 2004 NONE [id number] NALLELY,LAWRENCE ID PATIENT Selected Encounter This section includes the information on record at [place] for the Encounter. Date/Time Encounter Type Encounter Description Reason Provider Source Mar 01, 2024 09:30 AM OFFICE O/P EST MOD 30 MIN [facility] - IND ICD-10-CM F43.10 Post-traumatic stress disorder, unspecified ANDRIA LOCO Marilyn Encounter Template Text not used by [place] Assessments - Encounter Diagnoses This section includes the primary and secondary diagnoses documented for the Encounter. Date/Time Primary/Secondary Diagnosis Diagnosis Name Provider Source Mar 01, 2024 09:58 AM PRIMARY Post-traumatic stress disorder, unspecified FITO LOCO Plan of Treatment: Future Appointments (+ 6 months) and Future Tests (+/- 45 days) The Plan of Treatment section includes future care activities for the patient from all [place] treatmentfacilities. This section includes future appointments and future orders which are active, pending or scheduled. Future Appointments This section includes appointments that were scheduled to occur 6 months from the date of the Encounter, up to a maximum of 20 appointments. The data comes from all [place] treatment facilities. Appointment Date/Time Appointment Type Appointme nt Facility Name Mar 28, 2024 11:00 AM AMBULATORY - PS[facility]IATRY [facility] Apr 25, 2024 01:00 PM AMBULATORY PSYCHIATRY [facility] May 24, 2024 11:00 AM AMBULATORY PSYCHIATRY [facility] Jun 11, 2024 09:30 AM AMBULATORY - PSYCHIATRY [facility] Jun 28, 2024 11:30 AM AMBULATORY - PSYCHIATRY [facility] Jun 28, 2024 12:00 PM AM[place]ORY [place] [facility] Jun 28, 2024 12:45 PM AMBULATORY - MEDICINE [facility] Jul 16, 2024 01:15 PM AMBULATORY - MEDICINE [facility] Jul 16, 2024 01:30 PM [facility] Jul 30, 2024 10:00 AM [facility] Jul 30, 2024 10:30 AM [facility] [place] [facility] Aug 28, 2024 11:00 AM AMBULATORY - PSYCHIATRY [facility] Active, Pending, and Scheduled Orders This section includes a listing of several types of active, pending, and scheduled orders, including clinic medications orders, diagnostic test orders, procedure orders and consult orders; where the start date of the order is 45 days before the date of the Encounter or 45 days after the date of theEncounter. The data comes from all [place] treatment facilities. Test Date/Time Test Type Test Details Facility Name Mar 01, 2024 12:00 AM Laboratory - Chemi stry Order LIVER FUNCTION BLOOD (SST-SERUM) [facility] Advance Directives: All historical and current Section Date Range: From patient's date of to the date document was created. This section includes ALL of a patient's completed or amended [place] Advance and Rescinded Directives. The entries below indicate that a directive exists for the patient, but an actual copy is not included with this document. The data comes from all [place] facilities. Date Advance Directives Provider Source Nov 22, 2022 ADVANCE DIRECTIVE DISCUSSION RAFAELA MANRIQUEZ [facility] Apr 20, 2022 ADVANCE DIRECTIVE SIN WHARTON [facility] IE Encounter Notes: All associated encounter notes This section contains the clinical notes associated to the Encounter. Date/Time Encounter Note(s) Provider Source Mar 01, 2024 09:36 AM PSYCHIATRY NOTE: LOCAL TITLE: PSYCHIATRY NOTE STANDARD TITLE: PSYCHIATRY NOTE DATE OF NOTE: MAR 01, 2024@09:36 ENTRY DATE: MAR 01, 2024@09:36:33 AUTHOR: FITO LOCO EXP COSIGNER: URGENCY: STATUS: COMPLETED 30 minutes for encounter, including chart review, interview, charting chart reviewed s/p [address] [facility] residential program for alcohol and ptsd and then 2 mo at [facility] PTSD residential program, dc from this 01/01; 01/2023 at [facility] in [facility] ; now in own apt -- Juwan See my 05/18/2022 note for more history Pt presents as stable. Doing well. Good mood. Denies depression. PTSD sx's improved, managable. Affect brightens appropriately. Denies h/o psychotic sx's. Well organized thoughts. No PI or delusions presented. Speech normal. Cognitive exam grossly intact. Denies SI and violent ideation. Good self care. No slowing. Has interests -- stays busy , likes playing hockey. Nother discussion - pt again reports current psych meds help significantly, see below. He wants to keep the same. Denies side effects w current medications, except posssibly sexual s/e's, wh are managable (has viagra). Denies next-day sedation with medications. 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 Vitamin D Deficiency (SCT 08239362) 2. Thrombocytopenia 3. Esophagitis 4. colon cancer screening 5. Erectile dysfunction 6. eGD 7. Exposure to potentially hazardous substance 8. Esophageal stricture 9. Migraine with Aura (SCT [id number]) 10. Homeless 11. Dysphagia 12. Depression 13. Posttraumatic stress disorder 14. Hypertension 15. Idiopathic peripheral autonomic neuropathy 16. Severe alcohol dependence Active Outpatient Medications (including Supplies): Active Outpatient Medications Status ======= 1) CHOLECALCIF 1,250MCG (D3-50,000UNIT) CAP TAKE ONE ACTIVE (S) CAPSULE BY MOUTH WEEKLY FOR VITAMIN D DEFICIENCY 2) CLONIDINE HCL 0.1MG TAB TAKE ONE TABLET BY MOUTH ACTIVE THREE TIMES A DAY TO CONTROL BLOOD PRESSURE 3) FOLIC ACID 1MG TAB TAKE ONE TABLET BY MOUTH ONCE ACTIVE DAILY VITAMIN/NUTRITION SUPPLEMENT 4) GABAPENTIN 300MG CAP TAKE ONE CAPSULE BY MOUTH ONCE ACTIVE DAILY 5) LISINOPRIL 20MG TAB TAKE ONE TABLET BY MOUTH ONCE ACTIVE DAILY TO CONTROL BLOOD PRESSURE 6) NALTREXONE(EQV-VIVITROL)380MG/NAVEED SA INJ INJECT 1 ACTIVE VIAL (380MG) INTRAMUSCULARLY EVERY FOUR WEEKS FOR ALCOHOLISM 7) NAPROXEN 500MG TAB TAKE ONE TABLET BY MOUTH TWICE ACTIVE DAILY NEEDED TAKE WITH FOOD; FOR PAIN/INFLAMMATION/SWELLING 8) SERTRALINE HCL 100MG TAB TAKE ONE TABLET BY MOUTH ACTIVE EVERY MORNING FOR POSTTRAUMATIC STRESS SYNDROME 9) SILDENAFIL CITRATE 50MG TAB TAKE ONE TABLET BY MOUTH ACTIVE EVERY 24 HOURS NEEDED FOR ERECTILE DYSFUNCTION TAKE 1 HOUR PRIOR TO SEXUAL ACTIVITY 10) THIAMINE 100MG TAB TAKE TWO TABLETS BY MOUTH ONCE ACTIVE DAILY FOR VITAMIN SUPPLEMENTATION Active Non-VA Medications Status ======= 1) Non-VA CAPSAICIN 0.025% CREAM SMALL AMOUNT TOPICALLY ACTIVE THREE TIMES A DAY 2) Non-VA LIDOCAINE 5% PATCH 1 PATCH TOPICALLY ONCE ACTIVE DAILY 3) Non-VA OMEPRAZOLE 20MG EC CAP 20MG BY MOUTH TWICE ACTIVE DAILY 13 Total Medications PSYCHIATRIC MEDICATION HISTORY: zoloft Trazodone for sleep Melatonin Campral Denies other psychiatric meds history IMPRESSION: DSM-5 PTSD, chronic --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 See C-SSRS 10/2023 - same today The pt is probably low risk for suicide or violence -- the patient denied suicidal and violent ideation, but the Veterans Crisis Line information and number were given to patient as a precaution. The patient also understands to call 911 or to go to ER in the event of an emergency. encourage to [facility] pt understands OBI/recovery grp at this clinic is available; encourage AA and getting a sponsor continue Zoloft 100 mg daily for depression and PTSD, he reports good response continue trazodone 50 mg as needed nightly for insomnia. He takes this occasionally. Alternatively, he takes melatonin up to 6 mg nightly as needed insomnia. He would like to continue to have this available. Reviewed risk of next-day sedation with sleeping medication, patient denies this problem. continue Vivitrol IM monthly for AUD . note pt signed Vivitrol (naltrexone IM) consent form 12/07/2022. Carefully reviewed risk of injection site reaction with the patient, as well as other potential side effects on form and listed above. Patient has tolerated well so far. LFT[facility] The side affect profile of naltrexone was reviewed with patient, including risk of liver toxicity. I also reviewed that the patient must inform other physicians about being prescribed naltrexone because it is an opiate antagonist,and will block the effect of opiates. Patient demonstrates good understanding. The pt feels benefits outweigh risks. The discussion with patient about treatments including medications involved shared decision making. The patient was educated about the rationale and plan for the psychiatric medications. Medication instructions were reviewed with the patient. Alternatives to treatment were discussed with the patient. The side effect profile of the psychiatric medications was reviewed with the patient. This also included discussion of potential drug interactions associated with psychiatric medication. The patient discussed/verbalized back the understanding of the medication, side effects, and the plan/instructions, and the patient asked good questions. The patient demonstrated reasonable understanding of the medication side effects and the above-mentioned issues. Thebenefits of psychiatric medications outweigh risks for this patient. The patient consents to medication treatment. I asked the patient to call me or to come to open access if the patient does not like the effect of psychiatric medication or if has side effects with psychiatric medication. The risk of priapism with trazodone was reviewed with the patient. The patient was instructed to get immediate medical attention if he has priapism. The risk of next-day sedation and of falling with trazodone was also reviewed with the patient. The patient feels benefits outweigh risks -- this is reasonable. I instructed the patient to return to clinic in 3 months for medication check . I encouraged the patient tocall or to come to open access sooner if needed. pt to f/u w primary care re medical f/u Medication Reconciliation: Outpatient: Has the patient been taking medications as documented in the EMLR? YES: The patient has been taking medications as documented in the EMLR. Essential Medication List for Review used to complete this medication reconciliation. INCLUDED IN THIS LIST: Alphabetical list of active outpatient prescriptions dispensed from this [place] (local) and dispensed from another [place] or [facility] facility (remote) as well as inpatient orders (local, pending and active), local clinic medications, locally documented non-VA medications, and local prescriptions that have or been discontinued in the past 90 days. - All changes in medications, including all non-VA/Herbal/OTC medications were entered into CPRS. - If there were any medications the patient should no longer take, they were discontinued. - The patient/caregiver was instructed to update this list, discard old lists, and take this list to the next appointment, whether with a VA or non-VA provider. /gustabo/ FITO LOCO MD STAFF PSYCHIATRIST Signed: 03/01/2024 09:58 Receipt Acknowledged By: 03/01/2024 10:03 /gustabo/ Clau Clinton ADVANCED CATERING SALES MANAGER 03/01/2024 10:02 /es/ ENRRIQUE YUAN ADVANCED CATERING SALES MANAGER [facility]
--- OUTSIDE RECORDS SUMMARY | 2024-08-14 17:13 | XMS_ITS | Encounter Summary ---
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 Name Role Phone JARROD KOHLER Primary Care [...] Policy Christianson's Name Patient's Relationship to Policy Christiasnon [facility] CE ORGANIZAT ION HEALT H [facility] Dec 11, 2023 [id number] NALLELY,LAWRENCE ID PATIENT [facility] CE ORGANIZAT ION FAIRV IEW COMMO NS Nov 24, 2021 [id number] NALLELY,LAWRENCE ID PATIENT [facility] CE ORGANIZAT ION [facility] Sep 11, 2019 [id number] NALLELY,LAWRENCE ID PATIENT [facility] CE ORGANIZAT ION FAIRV IEW COMMO NS Apr 12, 2012 [id number] [phone] NALLELY,LAWRENCE ID PATIENT OPTUM RX PRESCRIPT ION [facility] PEE May 14, 2024 [facility] [id number] [id number] NALLELY,LAWRENCE ID PATIENT OPTUM RX PRESCRIPT ION HDHP/ HSA Nov 24, 2021 [facility] [id number] NALLELY,LAWRENCE ID PATIENT OPTUM RX PRESCRIPT ION HEALT H [place] Nov 24, 2021 [facility] [id number] NALLELY,LAWRENCE ID PATIENT OPTUM RX PRESCRIPT ION HEALT H [place] Sep 11, 2019 [facility] [id number] [phone] NALLELY,LAWRENCE ID PATIENT OPTUM RX PRESCRIPT ION HEALT H [place] Aug 17, 2004 NONE [id number] [phone] NALLELY,LAWRENCE ID PATIENT Selected Encounter This section includes the information on record at [place] for the Encounter. Date/Time Encounter Type Encounter Description Reason Pro vider Source Jul 30, 2024 10:30 AM Outpatient Encounter [facility] Encounter Template Text not used by [place] Plan of Treatment: Future Appointments (+ 6 months) and Future Tests (+/- 45 days) The Plan of Treatment section includes [place] care activities for the [place] [facility] [place] [facility] This section includes future appointments and future orders which are active, pending or scheduled. Future Appointments This section includes appointments that were scheduled to occur 6 months from the date of the Encounter, up to a maximum of 20 appointments. The data comes from all [place] treatment facilities. Appointment Date/Time Appointment Type Appointme nt Facility Name Aug 28, 2024 11:00 AM AMBULATORY - PSYCHIATRY [facility] Sep 12, 2024 10:00 AM AMBULATORY - MEDICINE [facility] October 24, 2024 02:00 PM AMBULATORY - MEDICINE [facility] Active, Pending, and Scheduled Orders This section includes a listing of several types of active, pending, and scheduled orders, including clinic medications orders, diagnostic test orders, procedure orders and consult orders; where the start date of the order is 45 days before the date of the Encounter or 45 days after the date of theEncounter. The data comes from all [place] treatment facilities. Test Date/Time Test Type Test Details Facility Name Jun 28, 2024 03:38 PM Consult Order EKG TRACIN G/SPOPC OUTPT Cons Dope Weigh Operator's Choice [facility] Jul 16, 2024 02:18 PM Consult Order COMMUNITY CARE-COLONOSCOPY SCREENING WITH EGD Cons Dope Weigh Operator's Choice [facility] Lab Results: +/- 30 days of the encounter This section includes the Chemistry and Hematology Lab Results on record with [place] for the patient. Radiology Reports and Pathology Reports are provided separately, in subsequent sections. Lab Results This section contains the Chemistry/Hematology Results that were resulted 30 days before or 30 daysafter the date of the Encounter. Date/Time Source Result Type Result - Unit Interpretation Reference Range Comment Jul 16, 2024 01:28 PM [facility] LIVER FUNCTION Specimen Type: SERUM No comment entered. Ordering Provider: RASHAWN LOCO Report Released Date/Time: Jun 28, 2024 12:42 PM Reporting Lab: [address] [address] Performing Lab: [address] [address] PROTEIN,TOTAL 8.6 g/dL H 6.0-8.3 ALBUMIN 3.9 g/dL 3.5-5.0 ALKALINE PHOSPHATASE 98 U/L 40-150 AST 66 U/L H 5-34 ALT 42 U/L BILIRUBIN, TOTAL 0.4 mg/dL 0.2-1.2 Jul 16, 2024 01:28 PM [facility] MAGNESIUM Specimen Type: SERUM No comment entered. Ordering Provider: JARROD KOHLER Report Released Date/Time: Jul 16, 2024 01:10 PM Reporting Lab: [address] [address] Performing Lab: [address] [address] MAGNESIUM 1.4 mg/dL L 1.6-2.6 Jul 16, 2024 01:28 PM [facility] LIPID PANEL, NON FASTING Specimen Type: SERUM No comment entered. Ordering Provider: JARROD KOHLER Report Released Date/Time: Jul 16, 2024 01:10 PM Reporting Lab: [address] [address] Performing Lab: [address] [address] CHOLESTEROL 197 mg/dL TRIGLYCERIDE 79 mg/dL 0-150 LDL calculated 119 mg/dL 0-129 CHOL/HDL 3.2 HDL CHOLESTEROL 62 mg/dL H 40-60 Jul 16, 2024 01:28 PM [facility] BASIC METABOLIC PANEL (non-fasting) Spe cimen Type: SERUM No comment entered. Ordering Provider: JARROD OKHLER Report Released Date/Time: Jul 16, 2024 01:10 PM Reporting Lab: [address] [address] Performing Lab: [address] [address] UREA NITROGEN 7 mg/dL 7-25 GLUCOSE 136 mg/dL H 65-100 SODIUM 138 mmol/L 135-145 POTASSIUM 3.6 mmol/L 3.5-5.0 CHLORIDE 104 mmol/L 100-110 CO2 23 meq/L 20-30 CREATININE, Serum 0.99 mg/dL 0.50-1.40 eGFR(CKD-EPI 2020) 89 mL/min >60 Jul 16, 2024 01:28 PM [facility] CBC Specimen Type: BLOOD No comment entered. Ordering Provider: JARROD KOHLER Report Released Date/Time: Jul 16, 2024 01:10 PM Reporting Lab: [address] [address] Performing Lab: [address] [address] WBC 4.47 10*3/uL L 4.50-11.00 RBC 4.95 [...] and tobacco- related health factors from the [place] facility where the Encounter took place. Current Smoking Status This section includes the most current smoking, or tobacco-related health factor, from the [place] facility where the Encounter took place. Date/Time Current Smoking Status Comment Taz ity Jul 16, 2024 01:30 PM VA-TOBACCO NEVER USED OTHER TYPE [facility] Tobacco Use History This section includes a history of the smoking, or tobacco-related health factors, that were collected on or before the date of the Encounter. The data comes from the [place] facility where the Encounter took place. Date/Time Smoking Status/Tobacco Use Comment F acility Jul 16, 2024 01:30 PM VA-TOBACCO NEVER USED OTHER TYPE [facility] Advance Directives: All historical and current Section Date Range: From patient's date of to the date document was created. This section includes ALL of a patient's completed or amended [place] Advance and Rescinded Directives. The entries below indicate that a directive exists for the patient, but an actual copy is not included with this document. The data comes from all [facility]. 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
--- OUTSIDE RECORDS SUMMARY | 2024-08-14 17:13 | XMS_ITS | Encounter Summary ---
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 Name Role Phone JARROD KOHLER Primary Care [...] Christianson's Name Patient's Relationship to Policy Christianson [place] [employer]ALT [facility] Dec 11, 2023 [id number] [phone] NALLELY,LAWRENCE ID PATIENT [place] [employer] [facility] COMMO NS Nov 24, 2021 [id number] NALLELY,LAWRENCE ID PATIENT [place] [employer] Sep 11, 2019 [id number] NALLELY,LAWRENCE ID PATIENT [place] [employer] FAIRV IEW COMMO NS Apr 12, 2012 [id number] [phone] NALLELY,LAWRENCE ID PATIENT OPTUM RX PRESCRIPT ION [facility] PEE May 14, 2024 [facility] [id number] [phone] NALLELY,LAWRENCE ID PATIENT OPTUM RX PRESCRIPT ION HDHP/ HSA Nov 24, 2021 [facility] [id number] [id number] NALLELY,LAWRENCE ID PATIENT OPTUM RX PRESCRIPT ION HEALT H [place] Nov 24, 2021 [facility] [id number] [phone] NALLELY,LAWRENCE ID PATIENT OPTUM RX PRESCRIPT ION HEALT H [place] Sep 11, 2019 [facility] [id number] [phone] NALLELY,LAWRENCE ID PATIENT OPTUM RX PRESCRIPT ION HEALT H [place] Aug 17, 2004 NONE [id number] NALLELY,LAWRENCE ID PATIENT Selected Encounter This section includes the information on record at MD for the Encounter. Date/Time Encounter Type Encounter Description Reason Provider Source Apr 25, 2024 01:00 PM NALTREXONE, DEPOT FORM [facility] ICD-10-CM F10.230 Alcohol dependence with withdrawal, uncomplicated OSCAR GILL Marilyn Encounter Template Text not used by MD Assessments - Encounter Diagnoses This section includes the primary and secondary diagnoses documented for the Encounter. Date/Time Primary/Secondary Diagnosis Diagnosis Name Provider Source Apr 25, 2024 01:47 PM PRIMARY Alcohol dependence with withdrawal, uncomplicated OSCAR GILL RUBINA Plan of Treatment: Future Appointments (+ 6 months) and Future Tests (+/- 45 days) The Plan of Treatment section includes future care activities for the patient from all MD treatmentfacilities. This section includes future appointments and future orders which are active, pending or scheduled. Future Appointments This section includes appointments that were scheduled to occur 6 months from the date of the Encounter, up to a maximum of 20 appointments. The data comes from all MD treatment facilities. Appointment Date/Time Appointment Type Appointme nt Facility Name May 24, 2024 11:00 AM AMBULATORY - PSYCHIATRY [facility] Jun 11, 2024 09:30 AM AMBULATORY - PSYCHIATRY [facility] Jun 28, 2024 11:30 AM AMBULATORY PSYCHIATRY [facility] Jun 28, 2024 12:00 PM AMBULATORY PSYCHIATRY [facility] Jun 28, 2024 12:45 PM AMBULATORY - MEDICINE [facility] Jul 16, 2024 01:15 PM AMBULATORY - MEDICINE [facility] Jul 16, 2024 01:30 PM AMBULATORY - MEDICINE [facility] Jul 30, 2024 10:00 AM AMBULATORY - MEDICINE [facility] Jul 30, 2024 10:30 AM AM[facility]ULATORY [facility] Aug 28, 2024 11:00 AM AMBULATORY - PSYCHIATRY [facility] Sep 12, 2024 10:00 AM AMBULATORY - MEDICINE MD C [facility] Advance Directives: All historical and current Section Date Range: From patient's date of to the date document was created. This section includes ALL of a patient's completed or amended MD Advance and Rescinded Directives. The entries below indicate that a directive exists for the patient, but an actual copy is not included with this document. The data comes from all MD facilities. Date Advance Directives Provider Source Nov 22, 2022 ADVANCE DIRECTIVE DISCUSSION RAFAELA MANRIQUEZ [facility] Apr 20, 2022 ADVANCE DIRECTIVE S[place] Encounter Notes: All associated encounter notes This section contains the clinical notes associated to the Encounter. Date/Time Encounter Note(s) Provider Source Apr 26, 2024 08:21 AM ADDENDUM: LOCAL TITLE: Addendum STANDARD TITLE: ADDENDUM DATE OF NOTE: APR 26, 2024@08:21:58 ENTRY DATE: APR 26, 2024@08:21:59 AUTHOR: OSCAR GILL COSIGNER: URGENCY: STATUS: COMPLETED RTC 05/24 11 am /gustabo/ OSCAR GILL Registered Nurse Signed: 04/26/2024 08:22 Receipt Acknowledged By: 04/26/2024 08:39 /gustabo/ ENRRIQUE YUAN ADVANCED SLP --- Original Document --- 04/25/24 NALTREXONE INJECTION NOTE (T): Patient Identity Verified By:Full SSN, Date of , Full Name Medication Ordered by:Dr. Ortiz Reason for Injection (Specify Diagnosis):Alcohol dependence Date of last injection: Mar Injection Details: Medication:Vivitrol Lot number: [id number] Expiration date: [id number] Dosage:380 mg Injection Site:Right Glute SVSO - Vital Select Outpat. Measurement DT TEMP RESP PULSE POx BP F(C) (L/MIN)(%) 04/25/2024 13:36 16 70 96 153/93 LAB RESULTS LAST 1440 HRS - NONE FOUND Active problems - Computerized Problem List is the source for the followin. Vitamin D Deficiency ([facility] [id number]) 2. Thrombocytopenia 3. Esophagitis 4. colon cancer screening 5. Erectile dysfunction 6. eGD 7. Exposure to potentially hazardous substance 8. Esophageal stricture 9. Migraine with Aura ([facility] [id number]) 10. Homeless 11. Dysphagia 12. Depression 13. Posttraumatic stress disorder 14. Hypertension 15. Idiopathic peripheral autonomic neuropathy 16. Severe alcohol dependence Active Outpatient Medications (including Supplies): CHOLECALCIF 1,250MCG (D3-50,000UNIT) CAP TAKE ONE CAPSULE ACTIVE BY MOUTH WEEKLY FOR VITAMIN D DEFICIENCY CLONIDINE HCL 0.1MG TAB TAKE ONE TABLET BY MOUTH THREE ACTIVE TIMES A DAY TO CONTROL BLOOD PRESSURE FOLIC ACID 1MG TAB TAKE ONE TABLET BY MOUTH ONCE DAILY ACTIVE VITAMIN/NUTRITION SUPPLEMENT GABAPENTIN 300MG CAP TAKE ONE CAPSULE BY MOUTH ONCE DAILY ACTIVE FOR NERVE PAIN LISINOPRIL 20MG TAB TAKE ONE TABLET BY MOUTH ONCE DAILY TO ACTIVE CONTROL BLOOD PRESSURE MELATONIN 3MG CAP/TAB TAKE TWO CAPSULE/TABLET BY MOUTH AT ACTIVE BEDTIME NALTREXONE(EQV-VIVITROL)380MG/NAVEED SA INJ INJECT 1 VIAL ACTIVE (380MG) INTRAMUSCULARLY EVERY FOUR WEEKS FOR ALCOHOLISM NAPROXEN 500MG TAB TAKE ONE TABLET BY MOUTH TWICE DAILY ACTIVE NEEDED TAKE WITH FOOD; FOR PAIN/INFLAMMATION/SWELLING SERTRALINE HCL 100MG TAB TAKE ONE TABLET BY MOUTH EVERY ACTIVE MORNING FOR POSTTRAUMATIC STRESS SYNDROME SILDENAFIL CITRATE 50MG TAB TAKE ONE TABLET BY MOUTH EVERY ACTIVE 24 HOURS NEEDED FOR ERECTILE DYSFUNCTION TAKE 1 HOUR PRIOR TO SEXUAL ACTIVITY THIAMINE 100MG TAB TAKE TWO TABLETS BY MOUTH ONCE DAILY ACTIVE FOR VITAMIN SUPPLEMENTATION TRAZODONE HCL 50MG TAB TAKE ONE TABLET BY MOUTH AT BEDTIME ACTIVE NEEDED FOR INSOMNIA ASSOCIATED WITH DEPRESSION Non-VA CAPSAICIN 0.025% CREAM SMALL AMOUNT TOPICALLY THREE ACTIVE TIMES A DAY Non-VA LIDOCAINE 5% PATCH 1 PATCH TOPICALLY ONCE DAILY ACTIVE Non-VA OMEPRAZOLE 20MG EC CAP 20MG BY MOUTH TWICE DAILY ACTIVE 05/31/2024 11:00 CWM/SO/CHARBEL/CLAUDY 07/16/2024 13:30 CWM/SO/PACT 1 ADDRESS CHANGE CLERK Injection Narrative: Jarrod Browning is a 58 year old male who presents to this Nursing Clinic today for Vivitrol administration per Dr. Ortiz for ETOH dependence. This appointment is for an injection of extended-release Naltrexone and support for safe coping in regards to his diagnoses of Posttraumatic Stress Disorder and Alcohol use disorder. Jarrod is known to insurance underwriter sales and presents well groomed, friendly, and oriented to person, place, time, and situation. Jarrod denies SI/HI or the use of alcohol or illicit drugs. Stopped alcohol 01/2022, except 1 slip up 10/2023 2 beers - reports no alcohol since then. He continues to play hockey, which is something he enjoys alot. He was tempted to drink a beer after a hockey game recently, when someone bought him a beer. He dumped it out. He drank a helga emilia instead. Gave him positive feedback for this. He is thinking of moving closer to his family in [facility]. Administered Vivitrol 380mg IM at ROOM temperature in the Right gluteal while patient was STANDING non weight bearing, patient preference-given without adverse effects per order of Dr. Ortiz. PATIENT EDUCATION: denies side effects from medication. [place] acknowledges understanding of education offered regarding Naltrexone: it blocks opioid receptor sites and they will not experience a sense of euphoria if they use alcohol or opioids, it will reduce effectiveness of opioid pain analgesics, and they should abstain from alcohol and illicit drugs as part of long-acting Naltrexone treatment. [place] acknowledges understanding the possibility of significant injection site reactions that occur in a small percentage of patients who receive Vivitrol . acknowledges understanding that they should seek medical attention if injection site becomes increasingly painful, hard, swollen, red or hot. [place] has read and signed the Vivitrol IMed consent. They have been offered a Vivitrol Patient Safety Card and/or Vivitrol ID Bracelet in case of need for emergency pain management. PATIENT EDUCATION: [place] denies side effects from medication. [place] acknowledges understanding of education offered regarding Naltrexone: it blocks opioid receptor sites and they will not experience a sense of euphoria if they use alcohol or opioids, it will reduce effectiveness of opioid pain analgesics, and they should abstain from alcohol and illicit drugs as part of long-acting Naltrexone treatment. acknowledges understanding the possibility of significant injection site reactions that occur in a small percentage of patients who receive Vivitrol . acknowledges understanding that they should seek medical attention if injection site becomes increasingly painful, hard, swollen, red or hot. has read and signed the Vivitrol IMed consent. They have been offered a Vivitrol Patient Safety Card and/or Vivitrol ID Bracelet in case of need for emergency pain management. Date of next injection: May 24 2024 11am Next Physician's/Provider's appointment: May 31 2024 [place] understands how to utilize the [facility] Crisis Line (9-8-8 option 1) and urged to call that number at any time if they have thoughts about suicide and, or to call 911 or go to nearest E.R. if they have suicidal thoughts. Shahid was provided the date/time of next medication administration appointment, as well as insurance underwriter sales's contact information. If [place] has any questions, concerns, or changes in current health status [facility] call [facility] 30 min(s) spent in patient care and education. /gustabo/ OSCAR GILL Registered Nurse Signed: 04/25/2024 13:47 04/25/2024 ADDENDUM STATUS: COMPLETED [place] would like to reconnect with Eliezer Collier for therapy. If possible he would like to come monthly when he is in the clinic for his vivitrol injections. He has a long commute to get here. He also plans on attending the relapse prevention group next month on the day of his next injection 05/24. /cory GILL Registered Nurse Signed: 04/25/2024 13:49 Receipt Acknowledged By: * AWAITING SIGNATURE * ELIEZER COLLIER [place] Apr 25, 2024 01:47 PM ADDENDUM: LOCAL TITLE: Addendum STANDARD TITLE: ADDENDUM DATE OF NOTE: APR 25, 2024@13:47:51 ENTRY DATE: APR 25, 2024@13:47:51 AUTHOR: OSCAR GILL COSIGNER: URGENCY: STATUS: COMPLETED [place] would like to reconnect with Eliezer Collier for therapy. If possible he would like to come monthly when he is in the clinic for his vivitrol injections. He has a long commute to get here. He also plans on attending the relapse prevention group next month on the day of his next injection 05/24. /gustabo/ OSCAR GILL Registered Nurse Signed: 04/25/2024 13:49 Receipt Acknowledged By: 05/02/2024 10:59 /gustabo/ FRANKIE CIFUENTES UX DESIGNER --- Original Document --- 04/25/24 NALTREXONE INJECTION NOTE (T): Patient Identity Verified By:Full SSN, Date of , Full Name Medication Ordered by:Dr. Ortiz Reason for Injection (Specify Diagnosis):Alcohol dependence Date of last injection: Mar Injection Details: Medication:Vivitrol Lot number: [id number] Expiration date: [id number] Dosage:380 mg Injection Site:Right Glute SVSO - [employer] Outpat. Measurement DT TEMP RESP PULSE POx BP F(C) (L/MIN)(%) 04/25/2024 13:36 16 70 96 153/93 LAB RESULTS LAST 1440 HRS - NONE FOUND Active problems - Computerized Problem List is the source for the followin. Vitamin D Deficiency ([facility] [id number]) 2. Thrombocytopenia 3. Esophagitis 4. colon cancer screening 5. Erectile dysfunction 6. eGD 7. Exposure to potentially hazardous substance 8. Esophageal stricture 9. Migraine with Aura ([facility] [id number]) 10. Homeless 11. Dysphagia 12. Depression 13. Posttraumatic stress disorder 14. Hypertension 15. Idiopathic peripheral autonomic neuropathy 16. Severe alcohol dependence Active Outpatient Medications (including Supplies): CHOLECALCIF 1,250MCG (D3-50,000UNIT) CAP TAKE ONE CAPSULE ACTIVE BY MOUTH WEEKLY FOR VITAMIN D DEFICIENCY CLONIDINE HCL 0.1MG TAB TAKE ONE TABLET BY MOUTH THREE ACTIVE TIMES A DAY TO CONTROL BLOOD PRESSURE FOLIC ACID 1MG TAB TAKE ONE TABLET BY MOUTH ONCE DAILY ACTIVE VITAMIN/NUTRITION SUPPLEMENT GABAPENTIN 300MG CAP TAKE ONE CAPSULE BY MOUTH ONCE DAILY ACTIVE FOR NERVE PAIN LISINOPRIL 20MG TAB TAKE ONE TABLET BY MOUTH ONCE DAILY TO ACTIVE CONTROL BLOOD PRESSURE MELATONIN 3MG CAP/TAB TAKE TWO CAPSULE/TABLET BY MOUTH AT ACTIVE BEDTIME NALTREXONE(EQV-VIVITROL)380MG/NAVEED SA INJ INJECT 1 VIAL ACTIVE (380MG) INTRAMUSCULARLY EVERY FOUR WEEKS FOR ALCOHOLISM NAPROXEN 500MG TAB TAKE ONE TABLET BY MOUTH TWICE DAILY ACTIVE NEEDED TAKE WITH FOOD; FOR PAIN/INFLAMMATION/SWELLING SERTRALINE HCL 100MG TAB TAKE ONE TABLET BY MOUTH EVERY ACTIVE MORNING FOR POSTTRAUMATIC STRESS SYNDROME SILDENAFIL CITRATE 50MG TAB TAKE ONE TABLET BY MOUTH EVERY ACTIVE 24 HOURS NEEDED FOR ERECTILE DYSFUNCTION TAKE 1 HOUR PRIOR TO SEXUAL ACTIVITY THIAMINE 100MG TAB TAKE TWO TABLETS BY MOUTH ONCE DAILY ACTIVE FOR VITAMIN SUPPLEMENTATION TRAZODONE HCL 50MG TAB TAKE ONE TABLET BY MOUTH AT BEDTIME ACTIVE NEEDED FOR INSOMNIA ASSOCIATED WITH DEPRESSION Non-VA CAPSAICIN 0.025% CREAM SMALL AMOUNT TOPICALLY THREE ACTIVE TIMES A DAY Non-VA LIDOCAINE 5% PATCH 1 PATCH TOPICALLY ONCE DAILY ACTIVE Non-VA OMEPRAZOLE 20MG EC CAP 20MG BY MOUTH TWICE DAILY ACTIVE 05/31/2024 11:00 CWM/SO/MHC/CLAUDY 07/16/2024 13:30 CWM/SO/PACT 1 ADDRESS CHANGE CLERK Injection Narrative: Jarrod Browning is a 58 year old male [place] who presents to this Nursing Clinic today for Vivitrol administration per Dr. Ortiz for ETOH dependence. This appointment is for an injection of extended-release Naltrexone and support for safe coping in regards to his diagnoses of Posttraumatic Stress Disorder and Alcohol use disorder. Jarrod is known to insurance underwriter sales and presents well groomed, friendly, and oriented to person, place, time, and situation. Jarrod denies SI/HI or the use of alcohol or illicit drugs. Stopped alcohol 01/2022, except 1 slip up 10/2023 2 beers - reports no alcohol since then. He continues to play hockey, which is something he enjoys alot. He was tempted to drink a beer after a hockey game recently, when someone bought him a beer. He dumped it out. He drank a helga emilia instead. Gave him positive feedback for this. He is thinking of moving closer to his family in [facility]. Administered Vivitrol 380mg IM at ROOM temperature in the Right gluteal while patient was STANDING non weight bearing, patient preference-given without adverse effects per order of Dr. Ortiz. PATIENT EDUCATION: denies side effects from medication. acknowledges understanding of education offered regarding Naltrexone: it blocks opioid receptor sites and they will not experience a sense of euphoria if they use alcohol or opioids, it will reduce effectiveness of opioid pain analgesics, and they should abstain from alcohol and illicit drugs as part of long-acting Naltrexone treatment. acknowledges understanding the possibility of significant injection site reactions that occur in a small percentage of patients who receive Vivitrol . [place] acknowledges understanding that they should seek medical attention if injection site becomes increasingly painful, hard, swollen, red or hot. [place] has read and signed the Vivitrol IMed consent. They have been offered a Vivitrol Patient Safety Card and/or Vivitrol ID Bracelet in case of need for emergency pain management. PATIENT EDUCATION: [place] denies side effects from medication. [place] acknowledges understanding of education offered regarding Naltrexone: it blocks opioid receptor sites and they will not experience a sense of euphoria if they use alcohol or opioids, it will reduce effectiveness of opioid pain analgesics, and they should abstain from alcohol and illicit drugs as part of long-acting Naltrexone treatment. acknowledges understanding the possibility of significant injection site reactions that occur in a small percentage of patients who receive Vivitrol . acknowledges understanding that they should seek medical attention if injection site becomes increasingly painful, hard, swollen, red or hot. has read and signed the Vivitrol IMed consent. They have been offered a Vivitrol Patient Safety Card and/or Vivitrol ID Bracelet in case of need for emergency pain management. Date of next injection: May 24 2024 11am Next Physician's/Provider's appointment: May 31 2024 Shah[facility] understands how to utilize the [facility] (9-8-8 option 1) and urged to call that number at any time if they have thoughts about suicide and, or to call 911 or go to nearest E.R. if they have suicidal thoughts. Shahid was provided the date/time of next medication administration appointment, as well as insurance underwriter sales's contact information. If Shahid has any questions, concerns, or changes in current health status will call [facility]. 30 min(s) spent in patient care and education. /gustabo/ OSCAR GILL Registered Nurse Signed: 04/25/2024 13:47 04/26/2024 ADDENDUM STATUS: COMPLETED RTC 05/24 11 am /gustabo/ OSCAR GILL Registered Nurse Signed: 04/26/2024 08:22 Receipt Acknowledged By: 04/26/2024 08:39 /gustabo/ ENRRIQUE YUAN ADVANCED SLP OSCAR GILL Apr 25, 2024 01:38 PM MENTAL HEALTH NOTE : LOCAL TITLE: NALTREXONE INJECTION NOTE (T) STANDARD TITLE: MENTAL HEALTH NOTE DATE OF NOTE: APR 25, 2024@13:38 ENTRY DATE: APR 25, 2024@13:38:47 AUTHOR: OSCAR GILL EXP COSIGNER: URGENCY: STATUS: COMPLETED NALTREXONE INJECTION NOTE (T) Has ADDENDA Patient Identity Verified By:Full SSN, Date of , Full Name Medication Ordered by:Dr. Ortiz Reason for Injection (Specify Diagnosis):Alcohol dependence Date of last injection: Mar Injection Details: Medication:Vivitrol Lot number: [id number] Expiration date: [id number] Dosage:380 mg Injection Site:Right Glute SVSO - V[employer] Outpat. Measurement DT TEMP RESP PULSE POx BP F(C) (L/MIN)(%) 04/25/2024 13:36 16 70 96 153/93 LAB RESULTS LAST 1440 HRS - NONE FOUND Active problems - Computerized Problem List is the source for the followin. Vitamin D Deficiency ([facility] [id number]) 2. Thrombocytopenia 3. Esophagitis 4. colon cancer screening 5. Erectile dysfunction 6. eGD 7. Exposure to potentially hazardous substance 8. Esophageal stricture 9. Migraine with Aura ([facility] [id number]) 10. Homeless 11. Dysphagia 12. Depression 13. Posttraumatic stress disorder 14. Hypertension 15. Idiopathic peripheral autonomic neuropathy 16. Severe alcohol dependence Active Outpatient Medications (including Supplies): CHOLECALCIF 1,250MCG (D3-50,000UNIT) CAP TAKE ONE CAPSULE ACTIVE BY MOUTH WEEKLY FOR VITAMIN D DEFICIENCY CLONIDINE HCL 0.1MG TAB TAKE ONE TABLET BY MOUTH THREE ACTIVE TIMES A DAY TO CONTROL BLOOD PRESSURE FOLIC ACID 1MG TAB TAKE ONE TABLET BY MOUTH ONCE DAILY ACTIVE VITAMIN/NUTRITION SUPPLEMENT GABAPENTIN 300MG CAP TAKE ONE CAPSULE BY MOUTH ONCE DAILY ACTIVE FOR NERVE PAIN LISINOPRIL 20MG TAB TAKE ONE TABLET BY MOUTH ONCE DAILY TO ACTIVE CONTROL BLOOD PRESSURE MELATONIN 3MG CAP/TAB TAKE TWO CAPSULE/TABLET BY MOUTH AT ACTIVE BEDTIME NALTREXONE(EQV-VIVITROL)380MG/NAVEED SA INJ INJECT 1 VIAL ACTIVE (380MG) INTRAMUSCULARLY EVERY FOUR WEEKS FOR ALCOHOLISM NAPROXEN 500MG TAB TAKE ONE TABLET BY MOUTH TWICE DAILY ACTIVE NEEDED TAKE WITH FOOD; FOR PAIN/INFLAMMATION/SWELLING SERTRALINE HCL 100MG TAB TAKE ONE TABLET BY MOUTH EVERY ACTIVE MORNING FOR POSTTRAUMATIC STRESS SYNDROME SILDENAFIL CITRATE 50MG TAB TAKE ONE TABLET BY MOUTH EVERY ACTIVE 24 HOURS NEEDED FOR ERECTILE DYSFUNCTION TAKE 1 HOUR PRIOR TO SEXUAL ACTIVITY THIAMINE 100MG TAB TAKE TWO TABLETS BY MOUTH ONCE DAILY ACTIVE FOR VITAMIN SUPPLEMENTATION TRAZODONE HCL 50MG TAB TAKE ONE TABLET BY MOUTH AT BEDTIME ACTIVE NEEDED FOR INSOMNIA ASSOCIATED WITH DEPRESSION Non-VA CAPSAICIN 0.025% CREAM SMALL AMOUNT TOPICALLY THREE ACTIVE TIMES A DAY Non-VA LIDOCAINE 5% PATCH 1 PATCH TOPICALLY ONCE DAILY ACTIVE Non-VA OMEPRAZOLE 20MG EC CAP 20MG BY MOUTH TWICE DAILY ACTIVE 05/31/2024 11:00 CWM/SO/MHC/CLAUDY 07/16/2024 13:30 CWM/SO/PACT 1 ADDRESS CHANGE CLERK Injection Narrative: Jarrod Browning is a 58 year old male who presents to this Nursing Clinic today for Vivitrol administration per Dr. Ortiz for ETOH dependence. This appointment is for an injection of extended-release Naltrexone and support for safe coping in regards to his diagnoses of Posttraumatic Stress Disorder and Alcohol use disorder. Jarrod is known to insurance underwriter sales and presents well groomed, friendly, and oriented to person, place, time, and situation. Jarrod denies SI/HI or the use of alcohol or illicit drugs. Stopped alcohol 01/2022, except 1 slip up 10/2023 2 beers - reports no alcohol since then. He continues to play hockey, which is something he enjoys alot. He was tempted to drink a beer after a hockey game recently, when someone bought him a beer. He dumped it out. He drank a helga emilia instead. Gave him positive feedback for this. He is thinking of moving closer to his family in [facility]. Administered Vivitrol 380mg IM at ROOM temperature in the Right gluteal while patient was STANDING non weight bearing, patient preference-given without adverse effects per order of Dr. Ortiz. PATIENT EDUCATION: denies side effects from medication. [place] acknowledges understanding of education offered regarding Naltrexone: it blocks opioid receptor sites and they will not experience a sense of euphoria if they use alcohol or opioids, it will reduce effectiveness of opioid pain analgesics, and they should abstain from alcohol and illicit drugs as part of long-acting Naltrexone treatment. [place] acknowledges understanding the possibility of significant injection site reactions that occur in a small percentage of patients who receive Vivitrol . [place] acknowledges understanding that they should seek medical attention if injection site becomes increasingly painful, hard, swollen, red or hot. [place] has read and signed the Vivitrol IMed consent. They have been offered a Vivitrol Patient Safety Card and/or Vivitrol ID Bracelet in case of need for emergency pain management. PATIENT EDUCATION: [place] denies side effects from medication. [place] acknowledges understanding of education offered regarding Naltrexone: it blocks opioid receptor sites and they will not experience a sense of euphoria if they use alcohol or opioids, it will reduce effectiveness of opioid pain analgesics, and they should abstain from alcohol and illicit drugs as part of long-acting Naltrexone treatment. acknowledges understanding the possibility of significant injection site reactions that occur in a small percentage of patients who receive Vivitrol . acknowledges understanding that they should seek medical attention if injection site becomes increasingly painful, hard, swollen, red or hot. has read and signed the Vivitrol IMed consent. They have been offered a Vivitrol Patient Safety Card and/or Vivitrol ID Bracelet in case of need for emergency pain management. Date of next injection: May 24 2024 11am Next Physician's/Provider's appointment: May 31 2024 [place] understands how to utilize the Veterans Crisis Line (9-8-8 option 1) and urged to call that number at any time if they have thoughts about suicide and, or to call 911 or go to nearest E.R. if they have suicidal thoughts. Shahid was provided the date/time of next medication administration appointment, as well as insurance underwriter sales's contact information. If Shahid has any questions, concerns, or changes in current health status will call or come [facility]. 30 min(s) spent in patient care and education. /gustabo/ OSCAR GILL Registered Nurse Signed: 04/25/2024 13:47 04/25/2024 ADDENDUM STATUS: COMPLETED Shahid would like to reconnect with Eliezer Collier for therapy. If possible he would like to come monthly when he is in the clinic for his vivitrol injections. He has a long commute to get here. He also plans on attending the relapse prevention group next month on the day of his next injection 05/24. /gustabo/ OSCAR GILL Registered Nurse Signed: 04/25/2024 13:49 Receipt Acknowledged By: * AWAITING SIGNATURE * ELIEZER COLLIER 04/26/2024 ADDENDUM STATUS: COMPLETED RTC 05/24 11 am /cory GILL Registered Nurse Signed: 04/26/2024 08:22 Receipt Acknowledged By: * AWAITING SIGNATURE * ENRRIQUE YUAN LISA [place]
--- OUTSIDE RECORDS SUMMARY | 2024-08-14 17:14 | XMS_ITS ---
Author Name [facility] [place] Address [address] [place] [id number] Care Team Providers Care Method Consultant Name Role Phone JARROD KOHLER Primary Care [...] Christianson's Name Patient's Relationship to Policy Christianson [facility] CE ORGANIZAT ION HEALT H [facility] Dec 11, 2023 [id number] [phone] NALLELY,LAWRENCE ID PATIENT [facility] CE ORGANIZAT ION FAIRV IEW COMMO NS Nov 24, 2021 [id number] NALLELY,LAWRENCE ID PATIENT [facility] CE ORGANIZAT ION [facility] Sep 11, 2019 [id number] [phone] NALLELY,LAWRENCE ID PATIENT [facility] CE ORGANIZAT ION FAIRV IEW COMMO NS Apr 12, 2012 [id number] [phone] NALLELY,LAWRENCE ID PATIENT OPTUM RX PRESCRIPT ION [facility] PE May 14, 2024 [facility] [id number] [phone] NALLELY,LAWRENCE ID PATIENT OPTUM RX PRESCRIPT ION HDHP/ HSA Nov 24, 2021 [facility] [id number] [phone] NALLELY,LAWRENCE ID PATIENT OPTUM RX PRESCRIPT ION [facility]ALT [facility] [place] Nov 24, 2021 [facility] [id number] [phone] NALLELY,LAWRENCE ID PATIENT OPTUM RX PRESCRIPT ION [facility]ALT [facility] [place] Sep 11, 2019 [facility] [id number] [phone] NALLELY,LAWRENCE ID PATIENT OPTUM RX PRESCRIPT ION HEALT [facility] [place] Aug 17, 2004 NONE [id number] [phone] NALLELY,LAWRENCE ID PATIENT Selected Encounter This section includes the information on record at [place] for the Encounter. Date/Time Encounter Type Encounter Description Reason Pro vider Source Aug 13, 2024 01:13 PM Outpatient Encounter PRIMARY CARE/MEDICINE IHE Encounter Template Text not used by [place] Plan of Treatment: Future Appointments (+ 6 months) and Future Tests (+/- 45 days) The Plan of Treatment section includes future care activities for the patient from all [place] treatmentfacilities. This section includes future appointments and future orders which are active, pending or scheduled. Future Appointments This section includes appointments that were scheduled to occur 6 months from the date of the Encounter, up to a maximum of 20 appointments. The data comes from all [place] treatment facilities. Appointment Date/Time Appointment Type Appointme nt Facility Name Aug 28, 2024 11:00 AM AMBULATORY - PSYCHIATRY [facility] Sep 12, 2024 10:00 AM AMBULATORY - MEDICINE [facility] October 24, 2024 02:00 PM AMBULATORY - MEDICINE [facility] Active, Pending, and Scheduled Orders This section includes a listing of several types of active, pending, and scheduled orders, including clinic medications orders, diagnostic test orders, procedure orders and consult orders; where the start date of the order is 45 days before the date of the Encounter or 45 days after the date of theEncounter. The data comes from all [place] treatment facilities. Test Date/Time Test Type Test Details Facility Name Jul 16, 2024 02:18 PM Consult Order COMMUNITY CARE-COLONOSCOPY SCREENING WITH EGD Cons [facility] Lab Results: +/- 30 days of the encounter This section includes the Chemistry and Hematology Lab Results on record with [place] for the patient. Radiology Reports and Pathology Reports are provided separately, in subsequent sections. Lab Results This section contains the Chemistry/Hematology Results that were resulted 30 days before or 30 daysafter the date of the Encounter. Date/Time Source Result Type Result - Unit Interpretation Reference Range Comment Jul 16, 2024 01:28 PM [facility] LIVER FUNCTION Specimen Type: SERUM No comment entered. Ordering Provider: RASHAWN LOCO Report Released Date/Time: Jun 28, 2024 12:42 PM Reporting Lab: [address] [address] Performing Lab: [address] [address] PROTEIN,TOTAL 8.6 g/dL H 6.0-8.3 ALBUMIN 3.9 g/dL 3.5-5.0 ALKALINE PHOSPHATASE 98 U/L 40-150 AST 66 U/L H 5-34 ALT 42 U/L BILIRUBIN, TOTAL 0.4 mg/dL 0.2-1.2 Jul 16, 2024 01:28 PM [facility] MAGNESIUM Specimen Type: SERUM No comment entered. Ordering Provider: JARROD KOHLER Report Released Date/Time: Jul 16, 2024 01:10 PM Reporting Lab: [address] [address] Performing Lab: [address] [address] MAGNESIUM 1.4 mg/dL L 1.6-2.6 Jul 16, 2024 01:28 PM [facility] LIPID PANEL, NON FASTING Specimen Type: SERUM No comment entered. Ordering Provider: JARROD KOHLER Report Released Date/Time: Jul 16, 2024 01:10 PM Reporting Lab: [address] [address] Performing Lab: [address] [address] CHOLESTEROL 197 mg/dL TRIGLYCERIDE 79 mg/dL 0-150 LDL calculated 119 mg/dL 0-129 CHOL/HDL 3.2 HDL CHOLESTEROL 62 mg/dL H 40-60 Jul 16, 2024 01:28 PM [facility] BASIC METABOLIC PANEL (non-fasting) Spe cimen Type: SERUM No comment entered. Ordering Provider: JARROD KOHLER Report Released Date/Time: Jul 16, 2024 01:10 PM Reporting Lab: [address] [address] Performing Lab: [address] [address] UREA NITROGEN 7 mg/dL 7-25 GLUCOSE 136 mg/dL H 65-100 SODIUM 138 mmol/L 135-145 POTASSIUM 3.6 mmol/L 3.5-5.0 CHLORIDE 104 mmol/L 100-110 CO2 23 meq/L 20-30 CREATININE, Serum 0.99 mg/dL 0.50-1.40 eGFR(CKD-EPI 2020) 89 mL/min >60 Jul 16, 2024 01:28 PM [facility] CBC Specimen Type: BLOOD No comment entered. Ordering Provider: JARROD KOHLER Report Released Date/Time: Jul 16, 2024 01:10 PM Reporting Lab: [address] [address] Performing Lab: [address] [address] WBC 4.47 10*3/uL L 4.50-11.00 RBC 4.95 [...] and tobacco- related health factors from the [place] facility where the Encounter took place. Current Smoking Status This section includes the most current smoking, or tobacco-related health factor, from the [place] facility where the Encounter took place. Date/Time Current Smoking Status Comment Facil ity Feb 18, 2022 02:51 PM [facility]YX ADMIT TOBACCO SCREEN NO [facility] Tobacco Use History This section includes a history of the smoking, or tobacco-related health factors, that were collected on or before the date of the Encounter. The data comes from the [place] facility where the Encounter took place. Date/Time Smoking Status/Tobacco Use Comment F acility Feb 18, 2022 09:30 AM VA-TOBACCO NEVER USED [facility] Advance Directives: All historical and current Section Date Range: From patient's date of to the date document was created. This section includes ALL of a patient's completed or amended [place] Advance and Rescinded Directives. The entries below indicate that a directive exists for the patient, but an actual copy is not included with this document. The data comes from all [place] facilities. Date Advance Directives Provider Source Nov 22, 2022 ADVANCE DIRECTIVE DISCUSSION RAFAELA MANRIQUEZ [facility] Apr 20, 2022 ADVANCE DIRECTIVE SIN [place] Encounter Notes: All associated encounter notes This section contains the clinical notes associated to the Encounter. Date/Time Encounter Note(s) Provider Source Aug 13, 2024 01:13 PM CLERICAL NOTE: LOCAL TITLE: APPOINTMENT NO SHOW STANDARD TITLE: CLERICAL NOTE DATE OF NOTE: AUG 13, 2024@13:13 ENTRY DATE: AUG 13, 2024@13:14:21 AUTHOR: LOLA MURRELL EXP COSIGNER: URGENCY: STATUS: COMPLETED Patient Name: JARROD BROWNING Patient SSN: [id number] Date and time of Appointment No show : 08/13/24 13:13 PATIENT PHONE - PHONE NUMBER [CELLULAR] - Patient's medical record was reviewed. Follow-up actions were determined and initiated: Please check/complete as applies: [X]Telephoned Directly [ ]Re-scheduled for next available appt [X]Sent a N0-show letter ( must call for appointment) [ ]Other (Emergent/Overbook, etc.): Additional Comments: UNABLE TO REACH LMOM Future Clinic Visits 08/28/2024 11:00 SPR MHC PSYTR 3 10/24/2024 14:00 SPR PACT 1 RETAIL ASSOCIATE /es/ LOLA MURRELL ADVANCE INSULATION FOREMAN Signed: 08/13/2024 13:15 LOLA MURRELL
--- OUTSIDE RECORDS SUMMARY | 2024-08-14 17:14 | XMS_ITS | Encounter Summary ---
Author Name [facility] [place] Address [address] [place] [id number] Care Team Providers Care Fabrication Manager Name Role Phone JARROD KOHLER Primary Care [...] Christianson's Name Patient's Relationship to Policy Christianson [facility] CE ORGANIZAT ION HEALT H [facility] Dec 11, 2023 [id number] NALLELY,LAWRENCE ID PATIENT [facility] CE ORGANIZAT ION FAIRV IEW COMMO NS Nov 24, 2021 [id number] [phone] NALLELY,LAWRENCE ID PATIENT [facility] CE ORGANIZAT ION [facility] Sep 11, 2019 [id number] [phone] NALLELY,LAWRENCE ID PATIENT [facility] CE ORGANIZAT ION FAIRV IEW COMMO NS Apr 12, 2012 [id number] [phone] NALLELY,LAWRENCE ID PATIENT OPTUM RX PRESCRIPT ION [facility] PEE May 14, 2024 [facility] [id number] [id number] NALLELY,LAWRENCE ID PATIENT OPTUM RX PRESCRIPT ION HDHP/ HSA Nov 24, 2021 [facility] [id number] [phone] NALLELY,LAWRENCE ID PATIENT OPTUM RX PRESCRIPT ION HEALT [facility] [place] Nov 24, 2021 [facility] [id number] [phone] NALLELY,LAWRENCE ID PATIENT OPTUM RX PRESCRIPT ION HEALT H [place] Sep 11, 2019 [facility] [id number] [phone] NALLELY,LAWRENCE ID PATIENT OPTUM RX PRESCRIPT ION HEALT H [place] Aug 17, 2004 NONE [id number] [phone] NALLELY,LAWRENCE ID PATIENT Selected Encounter This section includes the information on record at [place] for the Encounter. Date/Time Encounter Type Encounter Description Reason Provider Source Sep 11, 2023 11:00 AM NALTREXONE, DEPOT FORM [facility] - [place] ICD-10-CM F10.230 Alcohol dependence with withdrawal, uncomplicated [place] BLACK Marilyn Encounter Template Text not used by [place] Assessments - Encounter Diagnoses This section includes the primary and secondary diagnoses documented for the Encounter. Date/Time Primary/Secondary Diagnosis Diagnosis Name Provider Source Sep 11, 2023 11:26 AM PRIMARY Alcohol dependence with withdrawal, uncomplicated HU BLACK Sep 11, 2023 11:26 AM SECONDARY Post-traumatic stress disorder, unspecified HU BLACK Plan of Treatment: Future Appointments (+ 6 months) and Future Tests (+/- 45 days) The Plan of Treatment section includes future care activities for the patient from all [place] treatmentfacilities. This section includes future appointments and future orders which are active, pending or scheduled. Future Appointments This section includes appointments that were scheduled to occur 6 months from the date of the Encounter, up to a maximum of 20 appointments. The data comes from all [place] treatment facilities. Appointment Date/Time Appointment Type Appointme nt Facility Name October 24, 2023 10:00 AM AMBULATORY - PS[facility]CHIATRY [facility] October 24, 2023 11:00 AM AMBULATORY - PS[facility]CHIATRY [facility] Nov 24, 2023 11:00 AM [facility] Nov 24, 2023 11:45 AM AMBULATORY - MEDICINE [facility] Nov 24, 2023 12:00 PM AMBULATORY - MEDICINE [facility] Nov 28, 2023 11:00 AM AMBULATORY - MEDICINE [facility] 2023 08:30 AM [facility] Jan 30, 2024 01:00 PM [facility] [facility] [place] [facility] Feb 29, 2024 10:00 AM [facility] [place] [facility] Mar 01, 2024 09:30 AM AMBULATORY - PSYCHIATRY [facility] Advance Directives: All historical and current Section Date Range: From patient's date of to the date document was created. This section includes ALL of a patient's completed or amended [place] Advance and Rescinded Directives. The entries below indicate that a directive exists for the patient, but an actual copy is not included with this document. The data comes from all [place] facilities. Date Advance Directives Provider Source Nov 22, 2022 ADVANCE DIRECTIVE DISCUSSION RAFAELA MANRIQUEZ [facility] Apr 20, 2022 ADVANCE DIRECTIVE SIN WHARTON [facility] Encounter Notes: All associated encounter notes This section contains the clinical notes associated to the Encounter. Date/Time Encounter Note(s) Provider Source Sep 11, 2023 11:18 AM MENTAL HEALTH NOTE : LOCAL TITLE: NALTREXONE INJECTION NOTE (T) STANDARD TITLE: MENTAL HEALTH NOTE DATE OF NOTE: SEP 11, 2023@11:18 ENTRY DATE: SEP 11, 2023@11:18:57 AUTHOR: HU BLACK COSIGNER: URGENCY: STATUS: COMPLETED F. Medication Administration Jarrod Ramos is a 57 year old male Pierce who presents to this Nursing Clinic today for Vivitrol administration per Dr. Ortiz for ETOH dependence. This appointment is for an injection of extended-release Naltrexone and support for safe coping in regards to his diagnoses of Posttraumatic Stress Disorder and Alcohol Dependence in remission. Jarrod is known to policy writer and presents well groomed, friendly, and oriented to person, place, time, and situation. Jarrod denies SI/HI and or the use of any alcohol or illicit drugs. Blood Pressure: 147/80 (09/11/2023 11:02) Pain: 0 (09/11/2023 11:02) Patient Height: 65 in [165.1 cm] (09/01/2023 11:26) Patient Weight: 185 lb. [83.91 kg] (09/11/2023 11:02) Pulse: 73 (09/11/2023 11:02) Respiration: 14 (09/11/2023 11:02) Temperature: 98 F [36.7 C] (09/01/2023 11:26) Last EKG N/A Last UDS No data available Last LFT Liver Function Tests Collection DT Spec AST ALT ALK PRICILLA ALBUMIN T BILI T. PROT 07/19/2023 11:28 SERUM 23 21 84 3.8 0.7 7.4 iMed informed consent signed on 12/07/22 Denies side effects from medication. Reviewed rx action & potential side effects. Patient verbalized understanding. Jarrod acknowledges understanding of the possibility for significant injection site reactions that may occur in a small percentage of patients. Pierce acknowledges understanding that they should seek medical attention if injection site becomes increasingly painful, hard, swollen, red or hot. Jarrod also acknowledges understanding education offered regarding Naltrexone: That it blocks opioid receptor sites and he will not experience a sense of euphoria if he takes alcohol or opioids, it will reduce effectiveness of opioid pain analgesics, and he must abstain from alcohol and illicit drugs as part of long-acting Naltrexone treatment. Jarrod acknowledges that he has a Vivitrol Card in his wallet. Jarrod reports continued participation in relapse prevention groups. A: Administered Vivitrol 380mg IM at ROOM temperature in the Left gluteal while patient was STANDING non weight bearing, patient preference - given without adverse effects per order of Dr. Ortiz. Lot: [id number] Exp Date: 09OCT2025 RTC in 4 weeks for next injection. R. Tolerated well, will return to [facility] October for next dose. Jarrod is aware that Roxanne will contact him if there is a scheduling conflict. understands how to utilize the [employer] Crisis Line (9-8-8 option 1) and urged to call that number at any time if they have thoughts about suicide and, or to call 911 or go to nearest E.R. if they have suicidal thoughts. Pierce was provided with the date/time of next medication administration appointment, as well as policy writer's contact information for use as needed. No barriers; Patient understands and agrees to current treatment plan. If Pierce has any questions, concerns, or changes in current health status will call [facility] Upcoming Appointments: 09/29/2023 11:00 CWM/SO/MHC/CLAUDY 10/11/2023 11:00 CWM/SO/MHC/JAIRO 12/08/2023 10:00 CWM/SO/PACT 2 /es/ HU BLACK, MSN, RN, CNL MENTAL HEALTH NURSE GENERAL PARTNER Signed: 09/11/2023 11:26 Receipt Acknowledged By: 09/12/2023 08:13 /es/ ROXANNE GILL Registered Nurse HU BLACK
--- OUTSIDE RECORDS SUMMARY | 2024-08-14 17:14 | XMS_ITS | Encounter Summary ---
Author Name [facility] [place] Address [address] [place] [address] Care Team Providers Care Senior Embedded Software Engineer Name Role Phone JARROD KOHLER Primary Care [...] Patient's Relationship to Policy Christianson [facility] CE ORGANIZAT ION HEALT H [facility] Dec 11, 2023 [id number] [phone] NALLELY,LAWRENCE ID PATIENT [facility] CE ORGANIZAT ION FAIRV IEW COMMO NS Nov 24, 2021 [id number] NALLELY,LAWRENCE ID PATIENT [facility] CE ORGANIZAT ION [facility] Sep 11, 2019 [id number] [phone] NALLELY,LAWRENCE ID PATIENT [facility] CE ORGANIZAT ION FAIRV IEW COMMO NS Apr 12, 2012 [id number] [phone] NALLELY,LAWRENCE ID PATIENT OPTUM RX PRESCRIPT ION [facility] May 14, 2024 [facility] [id number] [phone] NALLELY,LAWRENCE ID PATIENT OPTUM RX PRESCRIPT ION HDHP/ HSA Nov 24, 2021 [facility] [id number] [phone] NALLELY,LAWRENCE ID PATIENT OPTUM RX PRESCRIPT ION HEALT H [place] Nov 24, 2021 [facility] [id number] [phone] NALLELY,LAWRENCE ID PATIENT OPTUM RX PRESCRIPT ION HEALT H NEW [facility] Sep 11, 2019 [facility] [id number] [phone] NALLELY,LAWRENCE ID PATIENT OPTUM RX PRESCRIPT [facility]ON [facility] 2004 [facility] [id number] NALLELY,LAWRENCE ID PATIENT Selected Encounter This section includes the information on record at [place] for the Encounter. Date/Time Encounter Type Encounter Description Reason Pro vider Source Jul 16, 2024 12:00 AM Outpatient Encounter EVENT (HISTORICAL) IHE Encounter Template Text not used by [place] Plan of Treatment: Future Appointments (+ 6 months) and Future Tests (+/- 45 days) The Plan of Treatment section includes future care activities for the patient from all [place] treatmentfacilities. This section includes future appointments and future orders which are active, pending or scheduled. Future Appointments This section includes appointments that were scheduled to occur 6 months from the date of the Encounter, up to a maximum of 20 appointments. The data comes from all [place] treatment facilities. Appointment Date/Time Appointment Type Appointme nt Facility Name Jul 30, 2024 10:00 AM AMBULATORY - MEDICINE [facility] Jul 30, 2024 10:30 AM AMBULATORY - PSYCHIATRY [facility] Aug 28, 2024 11:00 AM AMBULATORY - PSYCHIATRY [facility] Sep 12, 2024 10:00 AM AMBULATORY - MEDICINE [facility] October 24, 2024 02:00 PM AMBULATORY - MEDICINE [facility] Active, Pending, and Scheduled Orders This section includes a listing of several types of active, pending, and scheduled orders, including clinic medications orders, diagnostic test orders, procedure orders and consult orders; where the start date of the order is 45 days before the date of the Encounter or 45 days after the date of theEncounter. The data comes from all [place] treatment facilities. Test Date/Time Test Type Test Details Facility Name Jun 28, 2024 03:38 PM Consult Order EKG TRACIN G/SPOPC OUTPT Cons [facility] [place] Jul 16, 2024 02:18 PM Consult Order COMMUNITY CARE-COLONOSCOPY SCREENING WITH EGD Cons [facility] Lab Results: +/- 30 days of the encounter This section includes the Chemistry and Hematology Lab Results on record with ME for the patient. Radiology Reports and Pathology Reports are provided separately, in subsequent sections. Lab Results This section contains the Chemistry/Hematology Results that were resulted 30 days before or 30 daysafter the date of the Encounter. Date/Time Source Result Type Result - Unit Interpretation Reference Range Comment Jul 16, 2024 01:28 PM [place] LIVER FUNCTION Specimen Type: SERUM No comment entered. Ordering Provider: RASHAWN LOCO Report Released Date/Time: Jun 28, 2024 12:42 PM Reporting Lab: [address] [address] Performing Lab: [address] [address] PROTEIN,TOTAL 8.6 g/dL H 6.0-8.3 ALBUMIN 3.9 g/dL 3.5-5.0 ALKALINE PHOSPHATASE 98 U/L 40-150 AST 66 U/L H 5-34 ALT 42 U/L BILIRUBIN, TOTAL 0.4 mg/dL 0.2-1.2 Jul 16, 2024 01:28 PM [place] MAGNESIUM Specimen Type: SERUM No comment entered. Ordering Provider: JARROD KOHLER Report Released Date/Time: Jul 16, 2024 01:10 PM Reporting Lab: [address] [address] [facility] [address] MAGNESIUM 1.4 mg/dL L 1.6-2.6 Jul 16, 2024 01:28 PM [place] BASIC METABOLIC PANEL (non-fasting) Spe cimen Type: SERUM No comment entered. Ordering Provider: JARROD KOHLER Report Released Date/Time: Jul 16, 2024 01:10 PM Reporting Lab: [address] [address] Performing Lab: [address] [address] UREA NITROGEN 7 mg/dL 7-25 GLUCOSE 136 mg/dL H 65-100 SODIUM 138 mmol/L 135-145 POTASSIUM 3.6 mmol/L 3.5-5.0 CHLORIDE 104 mmol/L 100-110 CO2 23 meq/L 20-30 CREATININE, Serum 0.99 mg/dL 0.50-1.40 eGFR(CKD-EPI 2020) 89 mL/min >60 Jul 16, 2024 01:28 PM [place] LIPID PANEL, NON FASTING Specimen Type: SERUM No comment entered. Ordering Provider: JARROD KOHLER Report Released Date/Time: Jul 16, 2024 01:10 PM Reporting Lab: [address] [address] Performing Lab: [address] [address] CHOLESTEROL 197 mg/dL TRIGLYCERIDE 79 mg/dL 0-150 LDL calculated 119 mg/dL 0-129 CHOL/HDL 3.2 HDL CHOLESTEROL 62 mg/dL H 40-60 Jul 16, 2024 01:28 PM [place] CBC Specimen Type: BLOOD No comment entered. Ordering Provider: JARROD KOHLER Report Released Date/Time: Jul 16, 2024 01:10 PM Reporting Lab: [address] [address] Performing Lab: [address] [address] WBC 4.47 10*3/uL L 4.50-11.00 RBC 4.95 [...] and tobacco- related health factors from the [place] facility where the Encounter took place. Current Smoking Status This section includes the most current smoking, or tobacco-related health factor, from the [place] facility where the Encounter took place. Date/Time Current Smoking Status Comment Facil ity Feb 18, 2022 02:51 PM [facility] ADMIT TOBACCO SCREEN NO [facility] Tobacco Use History This section includes a history of the smoking, or tobacco-related health factors, that were collected on or before the date of the Encounter. The data comes from the [place] facility where the Encounter took place. Date/Time Smoking Status/Tobacco Use Comment F acility Feb 18, 2022 09:30 AM VA-TOBACCO NEVER USED [facility] Advance Directives: All historical and current Section Date Range: From patient's date of to the date document was created. This section includes ALL of a patient's completed or amended [place] Advance and Rescinded Directives. The entries below indicate that a directive exists for the patient, but an actual copy is not included with this document. The data comes from all [place] facilities. Date Advance Directives Provider Source Nov 22, 2022 ADVANCE DIRECTIVE DISCUSSION RAFAELA MANRIQUEZ [facility] Apr 20, 2022 ADVANCE DIRECTIVE SIN WHARTON
--- OUTSIDE RECORDS SUMMARY | 2024-08-14 17:14 | XMS_ITS | Encounter Summary ---
Author Name [place] Address [address] [place] [id number] Care Team Providers Care Social Science Professor Name Role Phone JOSE F JARROD Primary Care Provider Unavailabl e Insurance Providers: [...] Christianson's Name Patient's Relationship to Policy Christianson [facility] CE ORGANIZAT ION HEALT [facility] Dec 11, 2023 [id number] NALLELY,LAWRENCE ID PATIENT [facility] CE ORGANIZAT ION FAIRV IEW COMMO NS Nov 24, 2021 [id number] NALLELY,LAWRENCE ID PATIENT [facility] CE ORGANIZAT ION [facility] Sep 11, 2019 [id number] [phone] NALLELY,LAWRENCE ID PATIENT [facility] CE ORGANIZAT ION FAIRV IEW COMMO NS Apr 12, 2012 [id number] [phone] NALLELY,LAWRENCE ID PATIENT OPTUM RX PRESCRIPT ION [facility] May 14, 2024 [facility] [id number] [phone] NALLELY,LAWRENCE ID PATIENT OPTUM RX PRESCRIPT ION HDHP/ HSA Nov 24, 2021 [facility] [id number] [id number] NALLELY,LAWRENCE ID PATIENT OPTUM RX PRESCRIPT ION HEALT H [place] Nov 24, 2021 [facility] [id number] [id number] NALLELY,LAWRENCE ID PATIENT OPTUM RX PRESCRIPT ION HEALT H [place] Sep 11, 2019 [facility] [id number] [phone] NALLELY,LAWRENCE ID PATIENT OPTUM RX PRESCRIPT ION HEALT H [place] Aug 17, 2004 NONE [id number] [id number] NALLELY,LAWRENCE ID PATIENT Selected Encounter This section includes the information on record at [place] for the Encounter. Date/Time Encounter Type Encounter Description Reason Provider Source Jan 30, 2024 01:00 PM [facility] - IND ICD-10-CM F10.230 Alcohol dependence with withdrawal, uncomplicated OSCAR GILL Marilyn Encounter Template Text not used by [place] Assessments - Encounter Diagnoses This section includes the primary and secondary diagnoses documented for the Encounter. Date/Time Primary/Secondary Diagnosis Diagnosis Name Provider Source Jan 30, 2024 02:55 PM PRIMARY Alcohol dependence with withdrawal, uncomplicated OSCAR GILL RUBINA Plan of Treatment: Future Appointments (+ 6 months) and Future Tests (+/- 45 days) The Plan of Treatment section includes future care activities for the patient from all [place] treatmentfacilities. This section includes future appointments and future orders which are active, pending or scheduled. Future Appointments This section includes appointments that were scheduled to occur 6 months from the date of the Encounter, up to a maximum of 20 appointments. The data comes from all [place] treatment facilities. Appointment Date/Time Appointment Type Appointme nt Facility Name Feb 29, 2024 10:00 AM AMBULATORY - PS[facility]RY [facility] Mar 01, 2024 09:30 AM AMBULATORY - PSYCHIATRY [facility] Mar 28, 2024 11:00 [facility] Apr 25, 2024 01:00 PM [facility] May 24, 2024 11:00 AM [facility] Jun 11, 2024 09:30 AM AMBULATORY - PSYCHIATRY [facility] Jun 28, 2024 11:30 AM AMBULATORY - PSYCHIATRY [facility] Jun 28, 2024 12:00 PM AMBULATORY - [facility] [place] [facility] Jun 28, 2024 12:45 PM AMBULATORY - MEDICINE [facility] Jul 16, 2024 01:15 PM [facility] Jul 16, 2024 01:30 PM AMBULATORY - MEDICINE [facility] Jul 30, 2024 10:00 AM AMBULATORY - MEDICINE [facility] Jul 30, 2024 10:30 AM [facility] Active, Pending, and Scheduled Orders This section includes a listing of several types of active, pending, and scheduled orders, including clinic medications orders, diagnostic test orders, procedure orders and consult orders; where the start date of the order is 45 days before the date of the Encounter or 45 days after the date of theEncounter. The data comes from all [place] treatment facilities. Test Date/Time Test Type Test Details Facility Name Mar 01, 2024 12:00 AM Laboratory - Chemi stry Order LIVER FUNCTION BLOOD (SST-SERUM) [facility] Advance Directives: All historical and current Section Date Range: From patient's date of to the date document was created. This section includes ALL of a patient's completed or amended [place] Advance and Rescinded Directives. The entries below indicate that a directive exists for the patient, but an actual copy is not included with this document. The data comes from all [place] facilities. Date Advance Directives Provider Source Nov 22, 2022 ADVANCE DIRECTIVE DISCUSSION RAFAELA MANRIQUEZ [facility] Apr 20, 2022 ADVANCE DIRECTIVE SIN WHARTON IE Encounter Notes: All associated encounter notes This section contains the clinical notes associated to the Encounter. Date/Time Encounter Note(s) Provider Source Jan 30, 2024 02:55 PM ADDENDUM: LOCAL TITLE: Addendum STANDARD TITLE: ADDENDUM DATE OF NOTE: JAN 30, 2024@14:55:26 ENTRY DATE: JAN 30, 2024@14:55:27 AUTHOR: OSCAR GILL EXP COSIGNER: URGENCY: STATUS: COMPLETED RTC 02/28 1000 /es/ OSCAR GILL Registered Nurse Signed: 01/30/2024 14:55 Receipt Acknowledged By: 01/30/2024 15:14 /es/ ENRRIQUE YUAN ADVANCED COMMERCIAL LITIGATION ASSOCIATE 01/31/2024 07:28 /es/ Clau Clinton ADVANCED COMMERCIAL LITIGATION ASSOCIATE --- Original Document --- 01/30/24 NALTREXONE INJECTION NOTE (T): Patient Identity Verified By:Full SSN, Date of , Full Name Medication Ordered by:Dr. Ortiz Reason for Injection (Specify Diagnosis): Alcohol use disorder Date of last injection: Dec Injection Details: Medication:Vivitrol Lot number: [id number] Expiration date: 09 FEB 2026 Dosage:380 mg Injection Site:Left Glute SVSO - Vital Select Outpat. Measurement DT TEMP RESP PULSE POx BP F(C) (L/MIN)(%) 01/30/2024 14:48 18 65 97 142/85 LAB RESULTS LAST 1440 HRS - NONE FOUND Active problems - Computerized Problem List is the source for the followin. Vitamin D Deficiency ([facility] [id number]) 2. Thrombocytopenia 3. Esophagitis 4. colon cancer screening 5. Erectile dysfunction 6. eGD 7. Exposure to potentially hazardous substance 8. Esophageal stricture 9. Migraine with Aura ([facility] [id number]) 10. Homeless 11. Dysphagia 12. Depression 13. Posttraumatic stress disorder 14. Hypertension 15. Idiopathic peripheral autonomic neuropathy 16. Severe alcohol dependence Active Outpatient Medications (including Supplies): CHOLECALCIF 1,250MCG (D3-50,000UNIT) CAP TAKE ONE CAPSULE ACTIVE BY MOUTH WEEKLY FOR VITAMIN D DEFICIENCY CLONIDINE HCL 0.1MG TAB TAKE ONE TABLET BY MOUTH THREE ACTIVE (S) TIMES A DAY TO CONTROL BLOOD PRESSURE FOLIC ACID 1MG TAB TAKE ONE TABLET BY MOUTH ONCE DAILY ACTIVE VITAMIN/NUTRITION SUPPLEMENT GABAPENTIN 300MG CAP TAKE ONE CAPSULE BY MOUTH ONCE DAILY ACTIVE LISINOPRIL 20MG TAB TAKE ONE TABLET BY [...] TWO TABLETS BY MOUTH ONCE DAILY ACTIVE (S) FOR VITAMIN SUPPLEMENTATION TRAZODONE HCL 50MG TAB TAKE ONE TABLET BY MOUTH AT BEDTIME ACTIVE NEEDED FOR INSOMNIA ASSOCIATED WITH DEPRESSION Non-VA CAPSAICIN 0.025% CREAM SMALL AMOUNT TOPICALLY THREE ACTIVE TIMES A DAY Non-VA LIDOCAINE 5% PATCH 1 PATCH TOPICALLY ONCE DAILY ACTIVE Non-VA OMEPRAZOLE 20MG EC CAP 20MG BY MOUTH TWICE DAILY ACTIVE 02/22/2024 11:00 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 Ortiz for ETOH dependence. This appointment is for an injection of extended-release Naltrexone and support for safe coping in regards to his diagnoses of Posttraumatic Stress Disorder and Alcohol use disorder. Jarrod is known to information writer and presents well groomed, friendly, and oriented to person, place, time, and situation. Jarrod denies SI/HI or the use of alcohol or illicit drugs. He is not currently working, and has been spending time fishing and playing hockey. He has alcohol cravings, especially around Hockey, but has resisted the use of any alcohol. Administered Vivitrol 380mg IM at ROOM temperature in the Left gluteal while patient was STANDING non weight bearing, patient preference-given without adverse effects per order of Dr. Ortiz. PATIENT EDUCATION: [place] denies side effects from medication. acknowledges understanding of education offered regarding Naltrexone: it blocks opioid receptor sites and they will not experience a sense of euphoria if they use alcohol or opioids, it will reduce effectiveness of opioid pain analgesics, and they should abstain from alcohol and illicit drugs as part of long-acting Naltrexone treatment. [place] acknowledges understanding the possibility of significant injection site reactions that occur in a small percentage of patients who receive Vivitrol . acknowledges understanding that they should seek medical attention if injection site becomes increasingly painful, hard, swollen, red or hot. [place]atham has read and signed the Vivitrol IMed consent. They have been offered a Vivitrol Patient Safety Card and/or Vivitrol ID Bracelet in case of need for emergency pain management. Date of next injection: 29 Feb 2024 1000 Next Physician's/Provider's appointment: 01 Mar 2024 0930 [place] understands how to utilize the [facility] Crisis Line (9-8-8 option 1) and urged to call that number at any time if they have thoughts about suicide and, or to call 911 or go to nearest E.R. if they have suicidal thoughts. was provided the date/time of next medication administration appointment, as well as information writer's contact information. If has any questions, concerns, or changes in current health status will call or come [facility] to the [facility]. 30 min(s) spent in patient care and education. /gustabo/ OSCAR GILL Registered Nurse Signed: 01/30/2024 14:55 OSCAR GILL Jan 30, 2024 02:49 PM MENTAL HEALTH NOTE : LOCAL TITLE: NALTREXONE INJECTION NOTE (T) STANDARD TITLE: MENTAL HEALTH NOTE DATE OF NOTE: JAN 30, 2024@14:49 ENTRY DATE: JAN 30, 2024@14:49:48 AUTHOR: OSCAR GILL COSIGNER: URGENCY: STATUS: COMPLETED NALTREXONE INJECTION NOTE (T) Has ADDENDA Patient Identity Verified By:Full SSN, Date of , Full Name Medication Ordered by:Dr. Ortiz Reason for Injection (Specify Diagnosis): Alcohol use disorder Date of last injection: Dec Injection Details: Medication:Vivitrol Lot number: [id number] Expiration date: 09 FEB 2026 Dosage:380 mg Injection Site:Left Glute SVSO - Vital Select Outpat. Measurement DT TEMP RESP PULSE POx BP F(C) (L/MIN)(%) 01/30/2024 14:48 18 65 97 142/85 LAB RESULTS LAST 1440 HRS - NONE FOUND Active problems - Computerized Problem List is the source for the followin. Vitamin D Deficiency ([facility] [id number]) 2. Thrombocytopenia 3. Esophagitis 4. colon cancer screening 5. Erectile dysfunction 6. eGD 7. Exposure to potentially hazardous substance 8. Esophageal stricture 9. Migraine with Aura ([facility] [id number]) 10. Homeless 11. Dysphagia 12. Depression 13. Posttraumatic stress disorder 14. Hypertension 15. Idiopathic peripheral autonomic neuropathy 16. Severe alcohol dependence Active Outpatient Medications (including Supplies): CHOLECALCIF 1,250MCG (D3-50,000UNIT) CAP TAKE ONE CAPSULE ACTIVE BY MOUTH WEEKLY FOR VITAMIN D DEFICIENCY CLONIDINE HCL 0.1MG TAB TAKE ONE TABLET BY MOUTH THREE ACTIVE (S) TIMES A DAY TO CONTROL BLOOD PRESSURE FOLIC ACID 1MG TAB TAKE ONE TABLET BY MOUTH ONCE DAILY ACTIVE VITAMIN/NUTRITION SUPPLEMENT GABAPENTIN 300MG CAP TAKE ONE CAPSULE BY MOUTH ONCE DAILY ACTIVE LISINOPRIL 20MG TAB TAKE ONE TABLET BY [...] TWO TABLETS BY MOUTH ONCE DAILY ACTIVE (S) FOR VITAMIN SUPPLEMENTATION TRAZODONE HCL 50MG TAB TAKE ONE TABLET BY MOUTH AT BEDTIME ACTIVE NEEDED FOR INSOMNIA ASSOCIATED WITH DEPRESSION Non-VA CAPSAICIN 0.025% CREAM SMALL AMOUNT TOPICALLY THREE ACTIVE TIMES A DAY Non-VA LIDOCAINE 5% PATCH 1 PATCH TOPICALLY ONCE DAILY ACTIVE Non-VA OMEPRAZOLE 20MG EC CAP 20MG BY MOUTH TWICE DAILY ACTIVE 02/22/2024 11:00 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 Ortiz for ETOH dependence. This appointment is for an injection of extended-release Naltrexone and support for safe coping in regards to his diagnoses of Posttraumatic Stress Disorder and Alcohol use disorder. Jarrod is known to information writer and presents well groomed, friendly, and oriented to person, place, time, and situation. Jarrod denies SI/HI or the use of alcohol or illicit drugs. He is not currently working, and has been spending time fishing and playing hockey. He has alcohol cravings, especially around Hockey, but has resisted the use of any alcohol. Administered Vivitrol 380mg IM at ROOM temperature [...] drugs as part of long-acting Naltrexone treatment. [place] acknowledges understanding the possibility of significant injection site reactions that occur in a small percentage of patients who receive Vivitrol . [place] acknowledges understanding that they should seek medical attention if injection site becomes increasingly painful, hard, swollen, red or hot. [place] has read and signed the Vivitrol IMed consent. They have been offered a Vivitrol Patient Safety Card and/or Vivitrol ID Bracelet in case of need for emergency pain management. Date of next injection: 29 Feb 2024 1000 Next Physician's/Provider's appointment: 01 Mar 2024 0930 understands how to utilize the [facility] Crisis Line (9-8-8 option 1) and urged to call that number at any time if they have thoughts about suicide and, or to call 911 or go to nearest E.R. if they have suicidal thoughts. [place] was provided the date/time of next medication administration appointment, as well as information writer's contact information. If has any questions, concerns, or changes in current health status will call or come [facility] to the [facility]. 30 min(s) spent in patient care and education. /cory GILL Registered Nurse Signed: 01/30/2024 14:55 01/30/2024 ADDENDUM STATUS: COMPLETED RTC 02/28 1000 /cory GILL Registered Nurse Signed: 01/30/2024 14:55 Receipt Acknowledged By: * AWAITING SIGNATURE * ENRRIQUE YUAN * AWAITING SIGNATURE * CLAU [place] LISA [place]
--- OUTSIDE RECORDS SUMMARY | 2024-08-14 17:14 | XMS_ITS | Encounter Summary ---
Author Name [facility] [place] [facility] [place] [facility] [facility] [place] Address [address] [place] [id number] Care Team Providers Care Director Of Teacher Education Name Role Phone JARROD KOHLER Primary Care [...] Policy Christianson's Name Patient's Relationship to Policy Christiansno [facility] CE ORGANIZAT ION [facility] Dec 11, 2023 [id number] [phone] NALLELY,LAWRENCE ID PATIENT [facility] CE ORGANIZAT ION FAIRV IEW COMMO NS Nov 24, 2021 [id number] NALLELY,LAWRENCE ID PATIENT [facility] CE ORGANIZAT ION [facility] Sep 11, 2019 [id number] [phone] NALLELY,LAWRENCE ID PATIENT [facility] CE ORGANIZAT ION FAIRV IEW COMMO NS Apr 12, 2012 [id number] [phone] NALLELY,LAWRENCE ID PATIENT OPT[facility] RX PRESCRIPT ION [facility] PEE May 14, 2024 [facility] [id number] NALLELY,LAWRENCE ID PATIENT OPTUM RX PRESCRIPT ION HDHP/ HSA Nov 24, 2021 [facility] [id number] [phone] NALLELY,LAWRENCE ID PATIENT OPT[facility] RX PRESCRIPT ION [facility] [place] Nov 24, 2021 [facility] [id number] [phone] NALLELY,LAWRENCE ID PATIENT OPT[facility] RX PRESCRIPT ION [facility] [place] Sep 11, 2019 [facility] [id number] [phone] NALLELY,LAWRENCE ID PATIENT OPTUM RX PRESCRIPT ION [facility] [place] Aug 17, 2004 NONE [id number] [phone] ANLLELY,LAWRENCE ID PATIENT Selected Encounter This section includes the information on record at [place] for the Encounter. Date/Time Encounter Type Encounter Description Reason Provider Source Nov 24, 2023 11:00 AM NALTREXONE[facility] [place] ICD-10-CM F10.230 Alcohol dependence with withdrawal, uncomplicated OSCAR IGLL Marilyn Encounter Template Text not used by [place] Assessments - Encounter Diagnoses This section includes the primary and secondary diagnoses documented for the Encounter. Date/Time Primary/Secondary Diagnosis Diagnosis Name Provider Source Nov 24, 2023 11:49 AM PRIMARY Alcohol dependence with withdrawal, uncomplicated OSCRA GILL RUBINA Plan of Treatment: Future Appointments [...] Date/Time Appointment Type Appointme nt Facility Name Nov 28, 2023 11:00 AM AMBULATORY - MEDICINE [facility] 2023 08:30 AM [facility] Jan 30[facility] 2024 01[facility]00 PM [facility] Feb 29, 2024 10[facility]00 AM [facility] Mar 01, 2024 09:30 AM AMBULATORY - PSYCHIATRY [facility] Mar 28, 2024 11:00 AM AMBULATORY - PSYCHIATRY [facility] Apr 25, 2024 01:00 PM AMBULATORY [facility]RY [facility] May 24, 2024 11:00 AM AMBULATORY PSYCHIATRY [facility] Active, Pending, and Scheduled Orders This [...] Date/Time Test Type Test Details Facility Name November 06, 2023 12:00 AM Laboratory - Chemi stry Order VITAMIN D (25-OH) BLOOD ([facility] Vital Signs: All taken on the encounter date This section contains inpatient and outpatient Vital Signs collected on the date of the Encounter. Date/Time Temperature Pulse Blood Pressure Respiratory Rate SP02 Pain Height Weight Body Mass Index Source Nov 24, 2023 12:42 PM 98.1 64 152/90 16 95 0 [facility] Advance Directives: All historical and current Section [...] 22, 2022 ADVANCE DIRECTIVE DISCUSSION RAFAELA MANRIQUEZ [facility] Apr 20, 2022 ADVANCE DIRECTIVE SIN WHARTON [facility] Encounter Notes: All associated encounter notes This section contains the clinical notes associated to the Encounter. Date/Time Encounter Note(s) Provider Source Nov 24, 2023 11:53 AM ADDENDUM: LOCAL TITLE: Addendum STANDARD TITLE: ADDENDUM DATE OF NOTE: NOV 24, 2023@11:53:03 ENTRY DATE: NOV 24, 2023@11:53:04 AUTHOR: OSCAR GILL EXP COSIGNER: URGENCY: STATUS: COMPLETED RTC 12/21 at 11 am /gustabo/ OSCAR GILL Registered Nurse Signed: 11/24/2023 11:53 Receipt Acknowledged By: 11/24/2023 13:02 /es/ ENRRIQUE YUAN [employer]VANCED [employer] ATTENDANT 11/24/2023 11:55 /es/ Clau Clinton ADVANCED CAR LOT ATTENDANT --- Original Document --- 11/24/23 NALTREXONE INJECTION NOTE (T): Patient Identity Verified By:Full SSN, Date of , Full Name Medication Ordered by: Reason for Injection (Specify Diagnosis):Alcohol Dependence Date of last injection: 10/24/23 Injection Details: Medication:Vivitrol Lot number: [id number] Expiration date: 09FEB2026 Dosage:380 mg Injection Site:Left Glute SVSO - Vital Select Outpat. Measurement DT TEMP RESP PULSE POx BP F(C) (L/MIN)(%) 11/24/2023 11:40 18 77 153/91 LAB RESULTS LAST 1440 HRS - NONE FOUND Active problems - Computerized Problem List is the source for the followin. Vitamin D Deficiency ([facility] [id number]) 2. Thrombocytopenia 3. Esophagitis 4. colon cancer screening 5. Erectile dysfunction 6. eGD 7. Exposure to potentially hazardous substance 8. Esophageal stricture 9. Migraine with Aura ([facility] [id number]) 10. Homeless 11. Dysphagia 12. Depression 13. [...] CAP 20MG BY MOUTH TWICE DAILY ACTIVE 03/01/2024 09:30 CWM/SO/MHC/CLAUDY Injection Narrative: Jarrod Browning is a 57 year old male [place] who presents to this Nursing Clinic today for Vivitrol administration per Dr. Ortiz for ETOH dependence. This appointment is for an injection of extended-release Naltrexone and support for safe coping in regards to his diagnoses of Posttraumatic Stress Disorder and Alcohol Dependence in remission. 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 Jarrod denies SI/HI and the use of alcohol since the one day slip up at the end of September. His BP remains elevated since I saw him last. Is on BP medication. Endorses compliance. Says he is under stress financially, and he and his daughter are not speaking. I asked him to keep a log at home of BP's and present it to PCP. He is stopping at their desk to make an appointment. Administered Vivitrol 380mg IM at ROOM temperature in the Left gluteal while patient was STANDING non weight bearing, patient preference - given without adverse effects per order of Dr. Ortiz. PATIENT EDUCATION: [place] denies side effects from medication. acknowledges understanding [...] percentage of patients who receive Vivitrol . [place] acknowledges understanding that they should seek medical attention if injection site becomes increasingly painful, hard, swollen, red or hot. has read and signed the Vivitrol IMed consent. They have been offered a Vivitrol Patient Safety Card and/or Vivitrol ID Bracelet in case of need for emergency pain management. Date of next injection: 2023 11 am Next Physician's/Provider's appointment: 02/2024 understands how to utilize the [facility] Crisis Line (9-8-8 option 1) and urged to call that number at any time if they have thoughts about suicide and, or to call 911 or go to nearest E.R. if they have suicidal thoughts. was provided the date/time of next medication administration appointment, as well as instructional writer's contact information. If [place] has any questions, concerns, or changes in current health status [facility] 20 min(s) spent in patient care and education. /gustabo/ OSCAR GILL Registered Nurse Signed: 11/24/2023 11:49 OSCAR GILL Nov 24, 2023 11:41 AM MENTAL HEALTH NOTE : LOCAL TITLE: NALTREXONE INJECTION NOTE (T) STANDARD TITLE: MENTAL HEALTH NOTE DATE OF NOTE: NOV 24, 2023@11:41 ENTRY DATE: NOV 24, 2023@11:41:44 AUTHOR: OSCAR GILL EXP COSIGNER: URGENCY: STATUS: COMPLETED NALTREXONE INJECTION NOTE (T) Has ADDENDA Patient Identity Verified By:Full SSN, Date of , Full Name Medication Ordered by: Reason for Injection (Specify Diagnosis):Alcohol Dependence Date of last injection: 10/24/23 Injection Details: Medication:Vivitrol Lot number: [id number] Expiration date: 09FEB2026 Dosage:380 mg Injection Site:Left Glute SVSO - Vital Select Outpat. Measurement DT TEMP RESP PULSE POx BP F(C) (L/MIN)(%) 11/24/2023 11:40 18 77 153/91 LAB RESULTS LAST 1440 HRS - NONE FOUND Active problems - Computerized Problem List is the source for the followin. Vitamin D Deficiency ([facility] [id number]) 2. Thrombocytopenia 3. Esophagitis 4. colon cancer screening 5. Erectile dysfunction 6. eGD 7. Exposure to potentially hazardous substance 8. Esophageal stricture 9. Migraine with Aura ([facility] [id number]) 10. Homeless 11. Dysphagia 12. Depression 13. [...] CAP 20MG BY MOUTH TWICE DAILY ACTIVE 03/01/2024 09:30 CWM/SO/MHC/CLAUDY Injection Narrative: Jarrod Browning is a 57 year old male [place] who presents to this Nursing Clinic today for Vivitrol administration per Dr. Ortiz for ETOH dependence. This appointment is for an injection of extended-release Naltrexone and support for safe coping in regards to his diagnoses of Posttraumatic Stress Disorder and Alcohol Dependence in remission. 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 Jarrod denies SI/HI and the use of alcohol since the one day slip up at the end of September. His BP remains elevated since I saw him last. Is on BP medication. Endorses compliance. Says he is under stress financially, and he and his daughter are not speaking. I asked him to keep a log at home of BP's and present it to PCP. He is stopping at their desk to make an appointment. Administered Vivitrol 380mg IM at ROOM temperature in the Left gluteal while patient was STANDING non weight bearing, patient preference - given without adverse effects per order of Dr. Ortiz. PATIENT EDUCATION: [place] denies side effects from medication. acknowledges understanding [...] increasingly painful, hard, swollen, red or hot. [place] has read and signed the Vivitrol IMed consent. They have been offered a Vivitrol Patient Safety Card and/or Vivitrol ID Bracelet in case of need for emergency pain management. Date of next injection: 2023 11 am Next Physician's/Provider's appointment: 02/2024 [place] understands how to utilize [facility] (9-8-8 option 1) and urged to call that number at any time if they have thoughts about suicide and, or to call 911 or go to nearest E.R. if they have suicidal thoughts. Shahid was provided the date/time of next medication administration appointment, as well as instructional writer's contact information. If Shahid has any questions, concerns, or changes in current health status will call or [facility]. 20 min(s) spent in patient care and education. /cory GILL Registered Nurse Signed: 11/24/2023 11:49 11/24/2023 ADDENDUM STATUS: COMPLETED RTC 12/21 at 11 am /cory GILL Registered Nurse Signed: 11/24/2023 11:53 Receipt Acknowledged By: * AWAITING SIGNATURE * ENRRIQUE YUAN * AWAITING SIGNATURE * CLAU CLINTON LISA [place]
--- OUTSIDE RECORDS SUMMARY | 2024-08-14 17:14 | XMS_ITS | Continuity of Care Document ---
Author Name [facility] Organization [facility] Care Team Providers Care Steno Typist Name Role Phone [facility] Unavailable Unavailable Problems Combined list of problems from Department of Defense and Veterans Affairs facilities. It does not include entries that were removed or entered in error. Problem Status Onset Date Problem Type Date of Resolution Comments Source colon cancer screening Active Condition Jul 17, 2023 Entered By: PRUDENCIO NUÑEZ Comment: Jun [address] Duckworth [facility] - Repeat 2023 Entered By: PRUDENCIO NUÑEZ Comment: LAST COLONOSCOPY 2023JUN 27 DUE 2030 [place] COVID-19 Active Condition RADHA VMASI [facility] Depression Active Condition [facility] Dysphagia Active Condition [facility] eGD Active Condition Jul 03 Entered By: YUAN NICHOLS Comment: EGD done 06/27/[address] Duckworth. Impression: final dx: A. Biopsy stomach reflux gastropathy with surface erosion. h. bacteria is negative.Jul 03, 2023 Entered By: YUAN NICHOLS Comment: B. biopsy lower esophagus-[place]uck[place] tts esophagus with ulceration and granulation tissue formation. C. Biopsy random-esophagu s-active esophagitis intraepithial beyer are more than 15 per high-power field. [facility] Erectile dysfunction Active Condition [facility] Esophageal stricture Active Condition [facility] Esophagitis Active Condition Jul 17, 2023 Entered By: PRUDENCIO NUÑEZ Comment: EGD Jun [address] Duck[address] [facility] Exposure to potentially hazardous substance Active Condition [facility] Homeless Active Condition [facility] (191GE) Hypertension Active Condition [facility] Idiopathic peripheral autonomic neuropathy Active Condition [facility] Migraine with Aura (SCT [id number]) Active Condition [facility] Posttraumatic stress disorder Active Condition [facility] Severe alcohol dependence Active Condition Mar 02, 2022 Entered By: ELLIS MORALES Comment: Alcohol use disorder, severe [facility] Shoulder pain Active Condition [facility] Th[facility]ocytopenia Active Condition [place] Tinnitus [facility] Vitamin D Deficiency ([facility] [id number]) Active Condition [facility] Diagnosis: ICD-10-CM I10 Essential (primary) hypertension Active Diagnosis [facility] Diagnosis: ICD-10-CM Z13.6 Encounter for screening for cardiovascular disorders Active Diagnosis [facility] Diagnosis: ICD-10-CM F10.230 Alcohol dependence with withdrawal, uncomplicated Active Diagnosis [place] Diagnosis: ICD-10-CM F43.10 Post-traumatic stress disorder, unspecified Active Diagnosis [facility] Diagnosis: ICD-10-CM H61.21 Impacted cerumen, right ear Active Diagnosis [place] Diagnosis: ICD-10-CM H61.23 Impacted cerumen, bilateral Active Diagnosis [facility] Diagnosis: ICD-10-CM E55.9 Vitamin D deficiency, unspecified Active Diagnosis [facility] Diagnosis: ICD-10-CM F43.12 Post-traumatic stress disorder, chronic Active Diagnosis [facility] Diagnosis: ICD-10-CM K20.90 Esophagitis, unspecified without bleeding Active Diagnosis [place] Diagnosis: ICD-10-CM Z59.00 Homelessness unspecified Active Diagnosis [facility] Diagnosis: ICD-10-CM Z23 Encounter for immunization Active Diagnosis [facility] Diagnosis: ICD-10-CM Z13.9 Encounter for screening, unspecified Active Diagnosis [facility] Diagnosis: ICD-10-CM R13.10 Dysphagia, unspecified Active Diagnosis [facility] Diagnosis: ICD-10-CM Z77.29 Contact with and exposure to other hazardous substances Active Diagnosis [facility] Medications Combined list of outpatient medications from Department of Defense and Veterans Affairs facilities.Medications provided include 1) outpatient medications from the last 15 months, and 2) patient-reported medications. 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 [facility] (OTIC) 12/24/2023 [id number] Wilder [facility] 2023 15 [place] carbamide peroxide 65 MG/ML Otic Solution INSTILL 5 DROPS INTO THE RIGHT EAR TWICE DAILY FOR EAR WAX BLOCKAGE 12/24/2023 [id number] ESTEPHANIA [facility] 2023 15 [facility] CHOLECALCIF ZAHIRA 1,250MCG (50,000UNIT ) CAP,ORAL TAKE ONE CAPSULE BY MOUTH WEEKLY FOR VITAMIN D DEFICIEN CY ORAL ACTIVE 12/08/2024 [id number] 5 Rajni KOHLERD A 2023 13 [place] CHOLECALCIF ZAHIRA 1,250MCG (50,000UNIT ) CAP,ORAL TAKE ONE CAPSULE BY MOUTH WEEKLY FOR VITAMIN D DEFICIEN CY ORAL DISCONT INUED 07/23/2024 [id number] LAMONT NUÑEZ 2023 13 [place] CICLESONIDE 160MCG/SPRA Y INHL,ORAL,6 .1GM INHALE 1 PUFF BY MOUTH TWICE DAILY (RINSE MOUTH AFTER USE) RINSE MOUTH AFTER USE RESPIR ATORY (INHAL ATION) ACTIVE 08/15/2024 [id number] 5 Rajni KOHLERD A 2024 1 [place] CLONIDINE HCL 0.1MG TAB TAKE ONE TABLET BY MOUTH THREE TIMES A DAY TO CONTROL BLOOD PRESSURE ORAL ACTIVE 12/08/2024 [id number] 4 Rajni KOHLERD A 2023 270 [place] CLONIDINE HCL 0.1MG TAB TAKE ONE TABLET BY MOUTH THREE TIMES A DAY TO CONTROL BLOOD PRESSURE ORAL DISCONT INUED 03/03/2024 [id number] 4 INKO GRUBBS S 2022 270 [place] FOLIC ACID (U/D) 1 MG ORAL TAB TAKE ONE TABLET BY MOUTH ONCE DAILY VITAMIN/ NUTRITIO N SUPPLEME NT 03/03/2024 [id number] 4 CAMERON GRUBBS S 2023 90 [facility] FOLIC ACID 1MG TAB TAKE ONE TABLET BY MOUTH ONCE DAILY VITAMIN/ NUTRITIO N SUPPLEME NT ORAL ACTIVE 12/08/2024 [id number] 4 Rajni KOHLER A 2023 90 [place] FOLIC ACID 1MG TAB TAKE ONE TABLET BY MOUTH ONCE DAILY VITAMIN/ NUTRITIO N SUPPLEME NT ORAL DISCONT INUED 03/03/2024 [id number] 4 NIKO GRUBBS S 2022 90 [place] GABAPENTIN (U/D) 300 MG ORAL CAP TAKE ONE CAPSULE BY MOUTH ONCE DAILY 03/03/2024 [id number] 4 CAMERON GRUBBS S 2023 30 [facility] GABAPENTIN 300MG CAP TAKE ONE CAPSULE BY MOUTH ONCE DAILY FOR NERVE PAIN ORAL ACTIVE 03/23/2025 [id number] 4 Rajni KOHLER A 2023 90 [place] GABAPENTIN 300MG CAP TAKE ONE CAPSULE BY MOUTH ONCE DAILY ORAL 03/03/2024 [id number] 4 NIKO GRUBBSN S 2022 30 [place] GUAIFENESIN 600MG TAB,SA TAKE TWO TABLETS BY MOUTH ONCE DAILY FOR COUGH FOLLOW DOSE WITH FULL GLASS OF WATER ORAL ACTIVE 08/15/2024 [id number] 5 Rajni KOHLER A 2024 14 [place] LIDOCAINE 5% PATCH APPLY 1 PATCH TOPICALL Y ONCE DAILY TOPICA L ACTIVE Janie LOCO 2022 [place] LISINOPRIL (U/D) 10 MG ORAL TAB TAKE ONE TABLET BY MOUTH ONCE DAILY TO CONTROL BLOOD PRESSURE Discont inued 03/03/2024 [id number] CAMERON GRUBBS S 2023 90 [facility] lisinopril (U/D) 20 MG ORAL TAB TAKE ONE TABLET BY MOUTH ONCE DAILY TO CONTROL BLOOD PRESSURE Active 09/01/2024 [id number] 4 PRUDENCIO NUÑEZ 2023 90 [facility] LISINOPRIL 10MG TAB TAKE ONE TABLET BY MOUTH ONCE DAILY TO CONTROL BLOOD PRESSURE ORAL DISCONT INUED (EDIT) 03/03/2024 [id number] 4 ROMIENIKO LARSEN Janie 2022 90 [place] LISINOPRIL 20MG TAB TAKE ONE TABLET BY MOUTH ONCE DAILY TO CONTROL BLOOD PRESSURE ORAL DISCONT INUED (EDIT) 09/01/2024 [id number] 4 JOAQUINLAMONT SALAZAR Darron 2023 90 [place] LISINOPRIL 40MG TAB TAKE ONE TABLET BY MOUTH ONCE DAILY TO CONTROL BLOOD PRESSURE ORAL ACTIVE 06/29/2025 [id number] 5 Rajni KOHLER 2024 90 [place] MELATONIN 3MG CAP/TAB TAKE TWO CAPSULE/ TABLET BY MOUTH AT BEDTIME ORAL ACTIVE 03/02/2025 [id number] 4 Janie LOCO 2023 60 [place] MELATONIN 3MG CAP/TAB TAKE TWO CAPSULE/ TABLET BY MOUTH AT BEDTIME ORAL DISCONT INUED 02/25/2024 [id number] 4 Janie LOCO 2022 60 [place] METOPROLOL TARTRATE 25MG TAB TAKE ONE TABLET BY MOUTH TWICE DAILY FOR BLOOD PRESSURE /HEART ORAL ACTIVE 08/15/2024 [id number] Rajni KOHLER A 2024 60 [place] NALTREXONE (EQV-VIVITR OL) 380MG/NAVEED INJ,SUSP,SA INJECT 1 VIAL (380MG) INTRAMUS CULARLY EVERY FOUR WEEKS FOR ALCOHOLI SM INTRAM USCULA R ACTIVE 03/02/2025 [id number] 4 Janie LOCO 2023 1 [place] NALTREXONE (EQV-VIVITR OL) 380MG/NAVEED INJ,SUSP,SA INJECT 1 VIAL (380MG) INTRAMUS CULARLY EVERY FOUR WEEKS FOR ALCOHOLI SM INTRAM USCULA R DISCONT INUED (EDIT) 10/23/2024 [id number] 4 Janie LOCO 2023 1 [place] NALTREXONE (EQV-VIVITR OL) 380MG/NAVEED INJ,SUSP,SA INJECT 1 VIAL (380MG) INTRAMUS CULARLY EVERY FOUR WEEKS FOR ALCOHOLI SM INTRAM USCULA R DISCONT INUED 05/26/2024 [id number] 4 Janie LOCO 2023 1 [place] NALTREXONE (EQV-VIVITR OL) 380MG/NAVEED INJ,SUSP,SA INJECT 1 VIAL (380MG) INTRAMUS CULARLY EVERY FOUR WEEKS INTRAM USCULA R DISCONT INUED (EDIT) 02/25/2024 [id number] 3 Janie LOCO G 2022 1 [place] Naltrexone Microsphere s (Vivitrol Eq.) Vial 380mg Intramuscul ar INJECT 1 VIAL (380MG) INTRAMUS CULARLY EVERY FOUR WEEKS FOR ALCOHOLI SM Active 10/23/2024 [id number] FITO LOCO 2023 1 [facility] Naltrexone Microsphere s (Vivitrol Eq.) Vial 380mg Intramuscul ar INJECT 1 VIAL (380MG) INTRAMUS CULARLY EVERY FOUR WEEKS FOR ALCOHOLI SM Active 10/23/2024 [id number] FITO LOCO 2023 1 [facility] Naltrexone Microsphere s (Vivitrol Eq.) Vial 380mg Intramuscul ar INJECT 1 VIAL (380MG) INTRAMUS CULARLY EVERY FOUR WEEKS FOR ALCOHOLI SM Discont inued 05/26/2024 [id number] FITO LOCO 2023 1 [facility] Naltrexone Microsphere s (Vivitrol Eq.) Vial 380mg Intramuscul ar INJECT 1 VIAL (380MG) INTRAMUS CULARLY EVERY FOUR WEEKS 02/25/2024 [id number] FITO OLCO 2022 1 [facility] Naproxen (Naprosyn) Tablet 500 mg Oral TAKE ONE TABLET BY MOUTH TWICE DAILY NEEDED TAKE WITH FOOD; FOR PAIN/INF LAMMATIO N/SWELLI NG 03/03/2024 [id number] CAMERON GRUBBS 2023 180 [facility] NAPROXEN 500MG TAB TAKE ONE TABLET BY MOUTH TWICE DAILY NEEDED TAKE WITH FOOD; FOR PAIN/INF LAMMATIO N/SWELLI NG ORAL ACTIVE 12/08/2024 [id number] 4 Rajni KOHLER 2023 180 [place] NAPROXEN 500MG TAB TAKE ONE TABLET BY MOUTH TWICE DAILY NEEDED TAKE WITH FOOD; FOR PAIN/INF LAMMATIO N/SWELLI NG ORAL DISCONT INUED 03/03/2024 [id number] 4 NIKO GRUBBS S 2022 180 [place] OMEPRAZOLE 20MG CAP,EC TAKE 1 CAPSULE BY MOUTH TWICE DAILY ORAL ACTIVE LAMONT NUÑEZ 2023 [place] sertraline (U/D) 100 MG ORAL TAB TAKE ONE TABLET BY MOUTH EVERY MORNING FOR POSTTRAU MATIC STRESS SYNDROME Active 10/24/2024 [id number] FITO LOCO 2023 60 [facility] sertraline (U/D) 100 MG ORAL TAB TAKE ONE TABLET BY MOUTH EVERY MORNING FOR POSTTRAU MATIC STRESS SYNDROME Discont inued 02/25/2024 [id number] FITO LOCO 2023 30 [facility] SERTRALINE HCL 100MG TAB TAKE ONE TABLET BY MOUTH EVERY MORNING FOR POSTTRAU MATIC STRESS SYNDROME ORAL ACTIVE 10/24/2024 [id number] Janie LOCO 2023 60 [place] SERTRALINE HCL 100MG TAB TAKE ONE TABLET BY MOUTH EVERY MORNING FOR POSTTRAU MATIC STRESS SYNDROME ORAL DISCONT INUED (EDIT) 02/25/2024 [id number] 4 Janie LOCO 2022 30 [place] sildenafiL 50 MG ORAL TAB TAKE ONE TABLET BY MOUTH EVERY 24 HOURS NEEDED FOR ERECTILE DYSFUNCT ION TAKE 1 HOUR PRIOR TO SEXUAL ACTIVITY 07/17/2024 [id number] 4 PRUDENCIO NUÑEZ 2023 18 [facility] sildenafiL 50 MG ORAL TAB TAKE ONE TABLET BY MOUTH EVERY 24 HOURS NEEDED FOR ERECTILE DYSFUNCT ION TAKE 1 HOUR PRIOR TO SEXUAL ACTIVITY Discont inued 07/17/2024 [id number] PRUDENCIO NUÑEZ 2023 6 [facility] SILDENAFIL CITRATE 50MG TAB TAKE ONE TABLET BY MOUTH EVERY 24 HOURS NEEDED FOR ERECTILE DYSFUNCT ION TAKE 1 HOUR PRIOR TO SEXUAL ACTIVITY ORAL DISCONT INUED 07/17/2024 [id number] LAMONT NUÑEZ 2023 6 [place] SILDENAFIL CITRATE 50MG TAB TAKE ONE TABLET BY MOUTH EVERY 24 HOURS NEEDED FOR ERECTILE DYSFUNCT ION TAKE 1 HOUR PRIOR TO SEXUAL ACTIVITY ORAL 07/17/2024 [id number] LAMONT NUÑEZ 2023 18 [place] THIAMINE 100MG TAB TAKE TWO TABLETS BY MOUTH ONCE DAILY FOR VITAMIN SUPPLEME NTATION ORAL ACTIVE 12/08/2024 [id number] 4 Rajni KOHLER 2023 200 [place] THIAMINE 100MG TAB TAKE TWO TABLETS BY MOUTH ONCE DAILY FOR VITAMIN SUPPLEME NTATION ORAL DISCONT INUED 03/03/2024 [id number] NIKO GRUBBS S 2022 200 [place] Thiamine 100mg, Tablet, Oral TAKE TWO TABLETS BY MOUTH ONCE DAILY FOR VITAMIN SUPPLEME NTATION 03/03/2024 [id number] CAMERON GRUBBS S 2023 200 [facility] TRAZODONE HCL 50MG TAB TAKE ONE TABLET BY MOUTH AT BEDTIME NEEDED FOR INSOMNIA ASSOCIAT ED WITH DEPRESSI ON ORAL ACTIVE 03/02/2025 [id number] 4 Janie LOCO 2023 30 [place] TRAZODONE HCL 50MG TAB TAKE ONE TABLET BY MOUTH AT BEDTIME NEEDED FOR INSOMNIA ASSOCIAT ED WITH DEPRESSI ON ORAL 02/25/2024 [id number] 4 Janie LOCO 2022 90 [place] Trazodone Hydrochlori de (Desyrel Eq.) Tablet 50 mg Oral TAKE ONE TABLET BY MOUTH AT BEDTIME NEEDED FOR INSOMNIA ASSOCIAT ED WITH DEPRESSI ON 02/25/2024 [id number] FITO LOCO 2023 90 [facility] Vitamin D Capsule Conventiona l 50,000 Internation al Units Oral TAKE ONE CAPSULE BY MOUTH WEEKLY FOR VITAMIN D DEFICIEN CY 07/23/2024 [id number] PRUDENCIO NUÑEZ 2023 13 [facility] Vitamin D Capsule Conventiona l 50,000 Internation al Units Oral TAKE ONE CAPSULE BY MOUTH WEEKLY FOR VITAMIN D DEFICIEN CY 07/23/2024 [id number] PRUDENCIO NUÑEZ Darron 2023 13 [facility] Allergies, Adverse Reactions, Alerts Combined list of allergies from Department of Defense and Veterans Affairs facilities. It does not include entries that were removed or entered in error. Substance Category Reaction Severity Reaction type Status Date Reported Comments Source CATS Propensity to adverse reaction (finding) active [facility] Immunizations Combined list of available immunizations from the Department of Defense and Veterans Affairs facilities. Immunization Series Date Given Administered By Site Reaction Lot Number CVX Code Drug Test Operator Status Comments Source COVID-19 (MODERNA), MRNA, LNP-S, PF, 50 MCG/0.5 ML (AGES 12+ YEARS) 1 2023 CHANTE THOMAS E R RIGHT DELTO ID [id number] complet ed [facility] INFLUENZA, INJECTABLE, QUADRIVALENT, PRESERVATIVE FREE 2022 WILLIAMANJANA REYESL E R RIGHT DELTO ID [id number] A 150 complet ed [place] PNEUMOCOCCAL CONJUGATE PCV20, POLYSACCHARID E [id number] CONJUGATE, ADJUVANT, PF 2022 LUIS HAWKINS LEFT DELTO ID [id number] 216 complet ed [place] TDAP 2022 LUIS HAWKINS DY RIGHT DELTO ID L 115 complet ed [place] INFLUENZA, UNSPECIFIED FORMULATION 2021 88 complet ed [facility] COVID-19, MRNA, LNP-S, BIVALENT BOOSTER, PF, 50 MCG/0.5 ML OR 25MCG/0.25 ML DOSE 1 2021 229 complet ed MOD; [id number]; [facility] COVID-19 (MODERNA), MRNA, LNP-S, PF, 100 MCG/0.5ML DOSE OR 50 MCG/0.25ML DOSE 2021 207 complet ed [facility] COVID-19 (MODERNA), MRNA, LNP-S, PF, 100 MCG/0.5ML DOSE OR 50 MCG/0.25ML DOSE 2 2020 207 complet ed [facility] COVID-19 (MODERNA), MRNA, LNP-S, PF, 100 MCG/0.5ML DOSE OR 50 MCG/0.25ML DOSE 1 2020 207 complet ed [facility] Influenza, seasonal, injectable, preservative free 1 2010 [id number] 1A 140 [employer] (CSL) complet ed Influenza , seasonal, injectabl e, preservat luiz free [facility] influenza virus vaccine, live, attenuated, for intranasal use 1 2010 [id number] [employer] (MED) complet influenza virus vaccine, live, attenuate d, for intranasa l use [facility] Novel influenza-H1N 1-09, injectable 1 2009 [id number] 1 127 [employer]. (NOV) complet ed Novel influenza -Q2R0-30, injectabl e DoD influenza virus vaccine, live, attenuated, for intranasal use 1 2008 [id number] 111 [employer] (MED) complet ed influenza virus vaccine, live, attenuate d, for intranasa l use [facility] influenza virus vaccine, split virus (incl. purified surface antigen)-reti red CODE 1 2007 [id number] 15 [facility] (SKB) complet ed influenza virus vaccine, split virus (incl. purified surface antigen)- retired CODE [facility] typhoid Vi capsular polysaccharid e vaccine 1 2007 [id number] 101 Sanofi Pasteur ([facility]) complet ed typhoid Vi capsular polysacch aride vaccine DoD influenza virus vaccine, split virus (incl. purified surface antigen)-reti red CODE 1 2006 [id number] 15 [facility] ([facility]) complet ed influenza virus vaccine, split virus (incl. purified surface antigen)- retired CODE DoD hepatitis B vaccine, adult dosage 3 2006 [id number] 43 Merck (MSD) complet ed hepatitis B vaccine, adult dosage DoD HEP B, ADULT 3 2006 43 complet ed [facility] influenza virus vaccine, split virus (incl. purified surface antigen)-reti red CODE 1 2005 [id number] 15 Other (OT) complet ed influenza virus vaccine, split virus (incl. purified surface antigen)- retired CODE DoD typhoid vaccine, parenteral, other than acetone-kille d, dried 1 2005 [id number] Sanofi Pasteur ([facility]) complet ed typhoid vaccine, parentera l, other than acetone-k illed, dried DoD hepatitis B vaccine, adult dosage 2 2005 [id number] 43 Merck (MSD) complet ed hepatitis B vaccine, adult dosage DoD HEP B, ADULT 2 2005 43 complet ed [facility] influenza virus vaccine, split virus (incl. purified surface antigen)-reti red CODE 1 2004 [id number] 15 Sanofi Pasteur ([facility]) complet ed influenza virus vaccine, split virus (incl. purified surface antigen)- retired CODE DoD hepatitis B vaccine, adult dosage 1 2004 [id number] 43 Merck (MSD) complet ed hepatitis B vaccine, adult dosage DoD HEP B, ADULT 2004 43 complet ed [facility] influenza virus vaccine, split virus (incl. purified surface antigen)-reti red CODE 0 2003 [id number] 15 Sanofi Pasteur ([facility]) complet ed influenza virus vaccine, split virus (incl. purified surface antigen)- retired CODE DoD anthrax vaccine 3 2003 [id number] 24 [facility] ([facility]) complet ed anthrax vaccine DoD vaccinia (smallpox) vaccine 0 2003 [id number] 75 [place] (ELIZABETH) complet ed vaccinia (smallpox ) vaccine DoD anthrax vaccine 2 2003 [id number] 24 [facility] ([facility]) complet ed anthrax vaccine DoD anthrax vaccine 1 2003 [id number] 24 [facility] ([facility]) complet ed anthrax vaccine DoD typhoid vaccine, parenteral, other than acetone-kille d, dried 0 2003 [id number] 41 Sanofi Pasteur ([facility]) complet ed typhoid vaccine, parentera l, other than acetone-k illed, dried DoD influenza virus vaccine, whole virus 0 2002 [id number] 16 Sanofi Pasteur ([facility]) complet ed influenza virus vaccine, whole virus DoD influenza virus vaccine, whole virus 0 2001 [id number] 16 [facility]) complet ed influenza virus vaccine, whole virus [facility] tetanus and diphtheria toxoids, adsorbed, preservative free, for adult use (2 Lf of tetanus toxoid and 2 Lf of diphtheria toxoid) 0 2001 [id number] 09 Sanofi Pasteur ([facility]) complet ed tetanus and diphtheri a toxoids, adsorbed, preservat luiz free, for adult use (2 Lf of tetanus toxoid and 2 Lf of diphtheri a toxoid) DoD meningococcal polysaccharid e vaccine (MPSV4) 0 2001 [id number] 32 Sanofi Pasteur ([facility]) complet ed meningoco ccal polysacch aride vaccine (MPSV4) [facility] influenza virus vaccine, whole virus 0 2000 [id number] 16 () complet ed influenza virus vaccine, whole virus [facility] influenza virus vaccine, whole virus 0 2000 [id number] 16 Willy (CON) complet ed influenza virus vaccine, whole virus DoD influenza virus vaccine, whole virus 0 1999 [id number] 16 [place] (ELIZABETH) complet ed influenza virus vaccine, whole virus DoD hepatitis A vaccine, adult dosage 2 1999 [id number] 52 Merck (MSD) complet ed hepatitis A vaccine, adult dosage DoD typhoid vaccine, live, oral 0 1998 [id number] 25 Brittany (BP) complet ed typhoid vaccine, live, oral [facility] influenza virus vaccine, whole virus 0 [id number] 16 Willy (CON) complet ed influenza virus vaccine, whole virus DoD measles, mumps and rubella virus vaccine 0 1997 [id number] Deng (AB) complet ed measles, mumps and rubella virus vaccine DoD influenza virus vaccine, whole virus 0 [id number] 16 Wyeth-Ayerst (Inactive) ([place]) complet ed influenza virus vaccine, whole virus DoD hepatitis A vaccine, adult dosage 1 1997 [id number] 52 Merck (MSD) complet ed hepatitis A vaccine, adult dosage DoD yellow fever vaccine 0 [id number] 37 Wyeth-Ayerst (Inactive) ([place]) complet ed yellow fever vaccine DoD typhoid vaccine, parenteral, acetone-kille d, dried (U.S. ) 1 1995 [id number] 53 Merck (MSD) complet ed typhoid vaccine, parentera l, acetone-k illed, dried ([place].S. ) DoD influenza virus vaccine, whole virus 0 1994 16 () complet ed influenza virus vaccine, whole virus DoD yellow fever vaccine 0 1992 37 Unknown (UNK) comple t ed yellow fever vaccine DoD tetanus and diphtheria toxoids, adsorbed, preservative free, for adult use (2 Lf of tetanus toxoid and 2 Lf of diphtheria toxoid) 0 1991 09 () complet ed tetanus and diphtheri a toxoids, adsorbed, preservat luiz free, for adult use (2 Lf of tetanus toxoid and 2 Lf of diphtheri a toxoid) DoD trivalent poliovirus vaccine, live, oral 0 1949 02 () complet ed trivalent polioviru s vaccine, live, oral DoD cholera vaccine, unspecified formulation 0 [id number] 26 Wyeth-Ayerst (Inactive) ([place]) complet ed cholera vaccine, unspecifi ed formulati on DoD Results Combined list of recent chemistry, hematology and other laboratory results from Department of Defense and Veterans Affairs, ranging from 15 months to all on record, depending upon the facility. Order Name Results Value Reference Range Date Interpretation Specimen Comments Source LIVER FUNCTION PROTEIN [MASS/VOLUM E] IN SERUM OR PLASMA 8.6 g/dL 6.0 - 8.3 07/16 H Specimen Type: SERUM No comment entered. Ordering Provider: LACEY LOCO Report Released Date/Time: Jun 28, 2024 12:42 PM Reporting Lab: [address] [address] Performing Lab: [address] [address] [place] LIVER FUNCTION ALBUMIN [MASS/VOLUM E] IN SERUM OR PLASMA 3.9 g/dL 3.5 - 5.0 07/16 Specimen Type: SERUM No comment entered. Ordering Provider: LACEY LOCO Report Released Date/Time: Jun 28, 2024 12:42 PM Reporting Lab: [address] [address] Performing Lab: [address] [address] [place] LIVER FUNCTION ALKALINE PHOSPHATASE [ENZYMATIC ACTIVITY/VO LUME] IN SERUM OR PLASMA 98 U/L 40 - 150 07/16 Specimen Type: SERUM No comment entered. Ordering Provider: LACEY LOCO Report Released Date/Time: Jun 28, 2024 12:42 PM Reporting Lab: [address] [address] Performing Lab: [facility] [address] [address] [place] LIVER FUNCTION ASPARTATE AMINOTRANSF ERASE [ENZYMATIC ACTIVITY/VO LUME] IN SERUM OR PLASMA 66 U/L 5 - 34 07/16 H Specimen Type: SERUM No comment entered. Ordering Provider: LACEY LOCO Report Released Date/Time: Jun 28, 2024 12:42 PM Reporting Lab: [address] [address] Performing Lab: [address] [address] [place] LIVER FUNCTION ALANINE AMINOTRANSF ERASE [ENZYMATIC ACTIVITY/VO LUME] IN SERUM OR PLASMA 42 U/L 07/16 Specimen Type: SERUM No comment entered. Ordering Provider: LACEY LOCO Report Released Date/Time: Jun 28, 2024 12:42 PM Reporting Lab: [facility] [address] [address] Performing Lab: [facility] [address] [address] [place] LIVER FUNCTION BILIRUBIN.T OTAL [MASS/VOLUM E] IN SERUM OR PLASMA 0.4 mg/dL 0.2 - 1.2 07/16 Specimen Type: SERUM No comment entered. Ordering Provider: LACEY LOCO Report Released Date/Time: Jun 28, 2024 12:42 PM Reporting Lab: [address] [address] Performing Lab: [address] [address] [place] MAGNESIUM MAGNESIUM [MASS/VOLUM E] IN SERUM OR PLASMA 1.4 mg/dL 1.6 - 2.6 07/16 L Specimen Type: SERUM No comment entered. Ordering Provider: LAWRENCE KOHLER A Report Released Date/Time: Jul 16, 2024 01:10 PM Reporting [facility] [address] [address] Performing Lab: [facility] [address] [address] [place] LIPID PANEL, NON FASTING CHOLESTEROL [MASS/VOLUM E] IN SERUM OR PLASMA 197 mg/dL 07/16 Specimen Type: SERUM No comment entered. Ordering Provider: LAWRENCE KOHLER A Report Released Date/Time: Jul 16, 2024 01:10 PM Reporting Lab: [facility] [address] [address] Performing Lab: [facility] [address] [address] [place] LIPID PANEL, NON FASTING TRIGLYCERID E [MASS/VOLUM E] IN SERUM OR PLASMA 79 mg/dL 0 - 150 07/16 Specimen Type: SERUM No comment entered. Ordering Provider: LAWRENCE KOHLER A Report Released Date/Time: Jul 16, 2024 01:10 PM Reporting Lab: [facility] [address] [facility] [address] Performing Lab: [facility] [address] [address] [place] LIPID PANEL, NON FASTING CHOLESTEROL IN LDL [MASS/VOLUM E] IN SERUM OR PLASMA BY CALCULATION 119 mg/dL 0 - 129 07/16 Specimen Type: SERUM No comment entered. Ordering Provider: LAWRENCE KOHLER A Report Released Date/Time: Jul 16, 2024 01:10 PM Reporting Lab: [facility] [address] [address] Performing Lab: [facility] [address] [address] [place] LIPID PANEL, NON FASTING CHOLESTEROL .TOTAL/CHOL ESTEROL IN HDL [MASS RATIO] IN SERUM OR PLASMA 3.2 07/16 Specimen Type: SERUM No comment entered. Ordering Provider: LAWRENCE KOHLER A Report Released Date/Time: Jul 16, 2024 01:10 PM Reporting Lab: [facility] [address] [address] Performing Lab: [facility] [address] [place] LIPID PANEL, NON FASTING CHOLESTEROL IN HDL [MASS/VOLUM E] IN SERUM OR PLASMA 62 mg/dL 40 - 60 07/16 H Specimen Type: SERUM No comment entered. Ordering Provider: LAWRENCE KOHLER A Report Released Date/Time: Jul 16, 2024 01:10 PM Reporting Lab: [facility] [address] Performing Lab: [facility] [address] [place] BASIC METABOLIC PANEL (non-fast ing) UREA NITROGEN [MASS/VOLUM E] IN SERUM OR PLASMA 7 mg/dL 7 - 25 07/16 Specimen Type: SERUM No comment entered. Ordering Provider: LAWRENCE KOHLER A Report Released Date/Time: Jul 16, 2024 01:10 PM Reporting Lab: [facility] [address] [facility] [address] Performing Lab: [address] [address] [place] BASIC METABOLIC PANEL (non-fast ing) GLUCOSE [MASS/VOLUM E] IN SERUM OR PLASMA 136 mg/dL 65 - 100 07/16 H Specimen Type: SERUM No comment entered. Ordering Provider: LAWRENCE KOHLER A Report Released Date/Time: Jul 16, 2024 01:10 PM Reporting Lab: [address] [address] Performing Lab: [address] [address] [place] BASIC METABOLIC PANEL (non-fast ing) SODIUM [MOLES/VOLU ME] IN SERUM OR PLASMA 138 mmol/L 135 - 145 07/16 Specimen Type: SERUM No comment entered. Ordering Provider: LAWRENCE KOHLER A Report Released Date/Time: Jul 16, 2024 01:10 PM Reporting Lab: [address] [address] Performing Lab: [address] [address] [place] BASIC METABOLIC PANEL (non-fast ing) POTASSIUM [MOLES/VOLU ME] IN SERUM OR PLASMA 3.6 mmol/L 3.5 - 5.0 07/16 Specimen Type: SERUM No comment entered. Ordering Provider: LAWRENCE KOHLER A Report Released Date/Time: Jul 16, 2024 01:10 PM Reporting Lab: [address] [address] Performing Lab: [address] [address] [place] BASIC METABOLIC PANEL (non-fast ing) CHLORIDE [MOLES/VOLU ME] IN SERUM OR PLASMA 104 mmol/L 100 - 110 07/16 Specimen Type: SERUM No comment entered. Ordering Provider: LAWRENCE KOHLER A Report Released Date/Time: Jul 16, 2024 01:10 PM Reporting Lab: [facility] [address] [address] Performing Lab: [facility] [address] [address] [place] BASIC METABOLIC PANEL (non-fast ing) CARBON DIOXIDE, TOTAL [MOLES/VOLU ME] IN SERUM OR PLASMA 23 meq/L 20 - 30 07/16 Specimen Type: SERUM No comment entered. Ordering Provider: LAWRENCE KOHLER A Report Released Date/Time: Jul 16, 2024 01:10 PM Reporting Lab: [address] [address] Performing Lab: [address] [address] [place] BASIC METABOLIC PANEL (non-fast ing) CREATININE [MASS/VOLUM E] IN SERUM OR PLASMA 0.99 mg/dL 0.50 - 1.40 07/16 Specimen Type: SERUM No comment entered. Ordering Provider: LAWRENCE KOHLER A Report Released Date/Time: Jul 16, 2024 01:10 PM Reporting Lab: [address] [address] Performing Lab: [facility] [address] [address] [place] BASIC METABOLIC PANEL (non-fast ing) GLOMERULAR FILTRATION RATE/1.73 SQ M.PREDICTED [VOLUME RATE/AREA] IN SERUM, PLASMA OR BLOOD BY CREATININE- BASED FORMULA (CKD-EPI 2020) 89 mL/min 60 07/16 Specimen Type: SERUM No comment entered. Ordering Provider: LAWRENCE KOHLER A Report Released Date/Time: Jul 16, 2024 01:10 PM Reporting Lab: [facility] [address] [address] Performing Lab: [address] [address] [place] CBC LEUKOCYTES [#/VOLUME] IN BLOOD BY AUTOMATED COUNT 4.47 10*3/u L 4.50 - 11.00 07/16 L Specimen Type: BLOOD No comment entered. Ordering Provider: LAWRENCE KOHLER A Report Released Date/Time: Jul 16, 2024 01:10 PM Reporting Lab: [facility] [address] [address] Performing Lab: [facility] [address] [address] [place] CBC ERYTHROCYTE S [#/VOLUME] IN BLOOD BY AUTOMATED COUNT 4.95 10*6/u L 4.23 - 5.66 07/16 Specimen Type: BLOOD No comment entered. Ordering Provider: LAWRENCE KOHLER A Report Released Date/Time: Jul 16, 2024 01:10 PM Reporting Lab: [facility] [address] [address] Performing Lab: [facility] [address] [address] [place] CBC HEMOGLOBIN [MASS/VOLUM E] IN BLOOD 12.6 g/dL 12.8 - 17 07/16 L Specimen Type: BLOOD No comment entered. Ordering Provider: LAWRENCE KOHLER A Report Released Date/Time: Jul 16, 2024 01:10 PM Reporting Lab: [facility] [address] [address] Performing Lab: [facility] [address] [address] [place] CBC HEMATOCRIT [VOLUME FRACTION] OF BLOOD BY AUTOMATED COUNT 39.9 39.2 - 50.4 07/16 Specimen Type: BLOOD No comment entered. Ordering Provider: LAWRENCE KOHLER A Report Released Date/Time: Jul 16, 2024 01:10 PM Reporting Lab: [facility] [address] [address] Performing Lab: [facility] [address] [address] [place] CBC MCV [ENTITIC VOLUME] BY AUTOMATED COUNT 80.6 fL 82 - 99 07/16 L Specimen Type: BLOOD No comment entered. Ordering Provider: LAWRENCE KOHLER A Report Released Date/Time: Jul 16, 2024 01:10 PM Reporting Lab: [facility] [address] [address] Performing Lab: [facility] [address] [address] [place] CBC MCHC [MASS/VOLUM E] BY AUTOMATED COUNT 31.6 g/dL 30.8 - 35.1 07/16 Specimen Type: BLOOD No comment entered. Ordering Provider: LAWRENCE KOHLER A Report Released Date/Time: Jul 16, 2024 01:10 PM Reporting Lab: [facility] [address] [address] Performing Lab: [facility] [address] [address] [place] CBC PLATELETS [#/VOLUME] IN BLOOD BY AUTOMATED COUNT 114 10*3/u L 140 - 360 07/16 L Specimen Type: BLOOD No comment entered. Ordering Provider: LAWRENCE KOHLER A Report Released Date/Time: Jul 16, 2024 01:10 PM Reporting Lab: [address] [address] Performing Lab: [facility] [address] [address] [place] CBC ERYTHROCYTE DISTRIBUTIO N WIDTH [RATIO] BY AUTOMATED COUNT 13.2 12.0 - 16.0 07/16 Specimen Type: BLOOD No comment entered. Ordering Provider: LAWRENCE KOHLER A Report Released Date/Time: Jul 16, 2024 01:10 PM Reporting Lab: [facility] [address] [address] Performing Lab: [facility] [address] [address] [place] CBC MCH [ENTITIC MASS] BY AUTOMATED COUNT 25.5 pg 26.2 - 32.6 07/16 L Specimen Type: BLOOD No comment entered. Ordering Provider: LAWRENCE KOHLER A Report Released Date/Time: Jul 16, 2024 01:10 PM Reporting Lab: [address] [address] Performing Lab: [address] [address] [place] TESTOSTER ONE-FREE (qu) TESTOSTERON E FREE [MASS/VOLUM E] IN SERUM OR PLASMA 57.6 pg/mL 46.0 - 224.0 07/19 Specimen Type: SERUM Comment: The concentrati on of free testosteron e is derived from a mathematica l model using total testosteron e by LCMSMS, sex hormone binding globulin and albumin. This test was developed and its analytical performance characteris tics have been determined by [employer] [place], [place]. It has not been cleared or approved by the U.S. Food and Drug Administrat ion. This assay has been validated pursuant to the CLIA regulations and is used for clinical purposes. Test Performed by [facility], [address] [place] [address] Simeon Quiles M.D., Ph.D., Director of Laboratorie s , CLIA [id number] TEST PERFORMED AT: , Ordering Provider: CADY NUÑEZ Report Released Date/Time: Jul 17, 2023 01:40 PM Reporting Lab: [address] [address] Performing Lab: [id number] [place], [place] [address] DHEA Sulfate (Q) DEHYDROEPIA NDROSTERONE SULFATE (DHEA-S) [MASS/VOLUM E] IN SERUM OR PLASMA 45 ug/dL 38 - 313 07/19 Specimen Type: SERUM Comment: DHEA-S values fall with advancing age. For reference, the reference intervals for 31-40 year old patients are: Female 23-266 mcg/dL and Male 106-464 mcg/dL. Test Performed by [facility], [address] [place] [address] Simeon Quiles M.D., Ph.D., Director of Laboratorie s , CLIA [id number] TEST PERFORMED AT: , Ordering Provider: CADY NUÑEZ Report Released Date/Time: Jul 17, 2023 01:40 PM Reporting Lab: [facility] [address] [facility] [address] Performing Lab: [facility] [address] [address] [place] HEPATITIS C ANTIBODY (HCV)-ARC HEPATITIS C VIRUS AB [PRESENCE] IN SERUM NON-RE ACTIVE 07/19 Specimen Type: SERUM Comment: Hep C Ab: No HCV antibody detected. If recent infection is suspected or other evidence suggests HCV infection, consider HCV nucleic acid testing Ordering Provider: CADY NUÑEZ Report Released Date/Time: Jul 17, 2023 01:50 PM Reporting Lab: [address] [address] Performing Lab: [facility] [address] [facility] [address] [place] TSH THYROTROPIN [UNITS/VOLU ME] IN SERUM OR PLASMA 0.97 u[IU]/ mL 0.35 - 5.00 07/19 Specimen Type: SERUM No comment entered. Ordering Provider: CADY NUÑEZ Report Released Date/Time: Jul 17, 2023 01:09 PM Reporting Lab: [facility] [address] [facility] [address] Performing Lab: [facility] [address] [facility] [address] [place] VITAMIN D (25-OH) 25-HYDROXYV ITAMIN D3 [MASS/VOLUM E] IN SERUM OR PLASMA 17 ng/mL 20 - 50 07/19 L Specimen Type: SERUM No comment entered. Ordering Provider: CADY NUÑEZ Report Released Date/Time: Jul 17, 2023 01:09 PM Reporting Lab: [address] [address] Performing Lab: [facility] [address] [facility] [address] [facility] Vital Signs Combined list of inpatient and outpatient Vital Signs from Department of Defense and Veterans Affairs, ranging from 12 months to all on record, depending upon the facility. Vital Sign Value Date Comments Source SYSTOLIC BLOOD PRESSURE 186 07/16/19 25 14:18:34 [facility] DIASTOLIC BLOOD PRESSURE 96 025 14:18:34 [facility] PULSE OXIMETRY 98 07/16/2024 14:18:34 [facility] WEIGHT 183 07/16/2024 14:18:34 [facility] BMI 31 kg/m2 07/16/2024 14:18:34 [facility] TEMPERATURE 97.9 07/16/2024 14:18:34 [facility] PULSE 82 07/16/2024 14:18:34 [facility] SYSTOLIC BLOOD PRESSURE 207 06/28/19 25 12:45:03 [facility] DIASTOLIC BLOOD PRESSURE 126 025 12:45:03 [facility] PULSE OXIMETRY 95 06/28/2024 12:45:03 [facility] TEMPERATURE 97.8 06/28/2024 12:45:03 [facility] PULSE 81 06/28/2024 12:45:03 [facility] RESPIRATION 16 06/28/2024 12:45:03 [facility] SYSTOLIC BLOOD PRESSURE 153 04/25/20 24 13:36:08 [facility] DIASTOLIC BLOOD PRESSURE 93 024 13:36:08 [facility] PULSE OXIMETRY 96 04/25/2024 13:36:08 [facility] WEIGHT 195 04/25/2024 13:36:08 [facility] BMI 33 kg/m2 04/25/2024 13:36:08 [facility] PULSE 70 04/25/2024 13:36:08 [facility] RESPIRATION 16 04/25/2024 13:36:08 [facility] SYSTOLIC BLOOD PRESSURE 163 03/28/20 24 11:56:22 [facility] DIASTOLIC BLOOD PRESSURE 103 024 11:56:22 [facility] PULSE OXIMETRY 95 03/28/2024 11:56:22 [facility] WEIGHT 192.5 03/28/2024 11:56:22 [facility] BMI 32 kg/m2 03/28/2024 11:56:22 [facility] PULSE 92 03/28/2024 11:56:22 [facility] RESPIRATION 16 03/28/2024 11:56:22 [facility] SYSTOLIC BLOOD PRESSURE 117 02/29/20 24 10:30:33 [facility] DIASTOLIC BLOOD PRESSURE 81 024 10:30:33 [facility] PULSE OXIMETRY 96 02/29/2024 10:30:33 [facility] WEIGHT 195.5 02/29/2024 10:30:33 [facility] BMI 33 kg/m2 02/29/2024 10:30:33 [facility] TEMPERATURE 97.8 02/29/2024 10:30:33 [facility] PULSE 76 02/29/2024 10:30:33 [facility] RESPIRATION 18 02/29/2024 10:30:33 [facility] Encounters Combined list of: 1) Encounters from Department of Veterans Affairs facilities going backup to the last 18 months, not all VA inpatient encounters are included; 2) Encounters from the Department of Defense facilities going backup to 280 months. Location Location Details Encounter Type Encounter Number Reason For Visit Attending Provider ADM Date DC Date Status Disposition Source [facility] PSYCHOTHER APY [id number] Diagnos is: ICD-10- CM F43.12 Post-tr aumatic stress disorde r, chronic AMIRA,CHARLENE E 02/15 [facility] [place] , DEPOT FORM [id number] Diagnos is: ICD-10- CM F10.230 Alcohol depende nce with withdra elizabeth, uncompl icated OSCAR GILL 02/15 [facility] Outpatient Encounter [id number] 02/15 [facility] Outpatient Encounter [id number] 02/15 [facility] [place] [facility] CASE MANAGEMENT [id number] Diagnos is: ICD-10- CM Z59.00 Homeles sness unspeci fied MENDY,IRASEMA VICTOR G 02/16 [facility] [place] OFFICE O/P EST HI 40-54 MIN [id number] Diagnos is: ICD-10- CM F43.10 Post-tr aumatic stress disorde r, unspeci fied [facility] G 02/24 [facility] [place] PSYTX W PT 60 MINUTES [id number] Diagnos is: ICD-10- CM F43.12 Post-tr aumatic stress disorde r, chronic CHARLENE COLLIER E 02/24 [facility] [place] OFFICE O/P EST MOD 30-39 MIN [id number] Diagnos is: ICD-10- CM Z77.29 Contact with and exposur e to other hazardo us substan sarah ROMIE,ADR KIYA S 03/03 [facility] Outpatient Encounter [id number] Diagnos is: ICD-10- CM R13.10 Dysphag ia, unspeci [place] MD 03/06 [facility] [place] GROUP PSYCHOTHER APY [id number] Diagnos is: ICD-10- CM F43.12 Post-tr aumatic stress disorde r, chronic BOSKO,CHARLENE E 03/17 [facility] [place] , DEPOT FORM [id number] Diagnos is: ICD-10- CM F10.230 Alcohol depende nce with withdra elizabeth, uncompl icated OSCAR GILL 03/17 [facility] Outpatient Encounter [id number] 03/21 [facility] Outpatient Encounter [id number] 03/21 [facility] Outpatient Encounter [id number] 03/21 [facility] [id number] Diagnos is: ICD-10- CM Z13.9 Encount er for screeni ng, unspeci RANDELL Mosqueda 03/23 [facility] Outpatient Encounter [id number] 03/23 [facility] Outpatient Encounter [id number] 03/30 [facility] Outpatient Encounter [id number] 04/05 RADHA AGUSTIN [facility] GROUP PSYCHOTHER APY [id number] Diagnos is: ICD-10- CM F43.12 Post-tr aumatic stress disorde r, chronic BOSKO,CHARLENE E 04/28 [facility] [place] , DEPOT FORM [id number] Diagnos is: ICD-10- CM F10.230 Alcohol depende nce with withdra wal, uncompl icated JAIROOSCAR 04/28 [facility] GROUP PSYCHOTHER APY [id number] Diagnos is: ICD-10- CM F43.12 Post-tr aumatic stress disorde r, chronic AMIRACHARLENE E 04/28 [facility] CASE MANAGEMENT [id number] Diagnos is: ICD-10- CM Z59.00 Homeles sness unspeci fied MENDYIRASEMA AGUIRREJAMSHID G 05/02 [facility] EST OCTOBER X REQ PHY/QHP [id number] Diagnos is: ICD-10- CM Z23 Encount er for immuniz ation WILLIAM,NI SYLVAIN R 05/19 [facility] OFFICE O/P EST MOD 30-39 MIN [id number] Diagnos is: ICD-10- CM F43.10 Post-tr aumatic stress disorde r, unspeci fied [facility] LOC[facility] G 05/26 [facility] CASE MANAGEMENT [id number] Diagnos is: ICD-10- CM Z59.00 Homeles sness unspeci fied MENDYIRASEMA AGUIRREJAMSHID G 06/01 [facility] [place] , DEPOT FORM [id number] Diagnos is: ICD-10- CM F10.230 Alcohol depende nce with withdra elizabeth, uncompl icated OSCAR GILL 06/20 [facility] [place] [facility] Outpatient Encounter [id number] 06/27 [facility] Outpatient Encounter [id number] 06/27 [facility] [place] [facility] CASE MANAGEMENT [id number] Diagnos is: ICD-10- CM Z59.00 Homeles sness unspeci fied IRASEMA BROOKE 07/10 [facility] Outpatient Encounter [id number] 07/17 [facility] [place] [place] [facility] OFFICE O/P EST HI 40 MIN [id number] Diagnos is: ICD-10- CM K20.90 Esophag itis, unspeci fied without bleedin g MARIA ALEJANDRA NUÑEZ 07/17 [place] [facility] Outpatient Encounter [id number] 07/17 [facility] [place] [place] [facility] [place] , DEPOT FORM [id number] Diagnos is: ICD-10- CM F10.230 Alcohol depende nce with withdra johnson, uncompl icated [facility]SC[facility] [place] [facility] [place] [facility] ADMN SARSCOV2 VACC 1 DOSE [id number] MARIA ALEJANDRA NUÑEZ 07/17 [facility] GROUP PSYCHOTHER APY [id number] Diagnos is: ICD-10- CM F43.12 Post-tr aumatic stress disorde r, chronic CHARLENE COLLIER [place] [facility] Outpatient Encounter [id number] 08/02 [facility] [place] Outpatient Encounter [id number] [facility] [place] , DEPOT FORM [id number] Diagnos is: ICD-10- CM F10.230 Alcohol depende nce with withdra wal, uncompl icated OSCAR GILL 08/13 [facility] GROUP PSYCHOTHER APY [id number] Diagnos is: ICD-10- CM F43.12 Post-tr aumatic stress disorde r, chronic BOSKOCHARLENE E 08/31 [facility] EST MOD 30 MIN 48196-8.63 [id number] Diagnos is: ICD-10- CM E55.9 Vitamin D deficie ncy, unspeci fied NUÑEZLAMONTRabia CHADWICK J 08/31 [facility] [id number] [id number] 25 09/10 [facility] [place] , [place] 61756-8.63 [id number] 55 Diagnos is: ICD-10- CM F10.230 Alcohol depende nce with withdra wal, uncompl icated SOFIA,Erickson JULIÁN 09/10 [facility] [place] , [place] 64763-2.63 [id number] Diagnos is: ICD-10- CM F10.230 Alcohol depende nce with withdra wal, uncompl icated SOFIA,W JULIÁN 09/10 [facility] En[facility] [id number] 09/25 [facility] En[facility] [id number] 10/02 [facility] En[facility] [id number] [id number] 10/02 [facility] Encounter [id number] [id number] 10/08 [facility] [place] [facility] Outpatient Encounter 52733-7.63 [id number] 10/10 [facility] [place] , DEP[place] 92720-2.63 [id number] 06 Diagnos is: ICD-10- CM F10.230 Alcohol depende nce with withdra wal, uncompl icated GILL,OSCAR 10/23 [facility] [place] [facility] OFFICE O/P EST MOD 30 MIN 22411-8.63 [id number] 16 Diagnos is: ICD-10- CM F43.10 Post-tr aumatic stress disorde r, unspeci fied ST GUS LOCODELANO G 10/23 [place] [facility] Outpatient Encounter [id number] 10/24 [facility] [place] , DEP[place] 03038-8.63 [id number] Diagnos is: ICD-10- CM F10.230 Alcohol depende nce with withdra wal, uncompl icated GILL,OSCAR 11/23 [facility] [place] OFF/OP EST OCTOBER X REQ PHY/QHP 76257-8.63 [id number] 20 Diagnos is: ICD-10- CM H61.23 Impacte d cerumen , bilater al JOSE MANUEL,ER IC K 11/23 [place] [facility] Outpatient Encounter [id number] 11/23 [facility] [place] [facility] OFFICE O/P EST LOW 20 MIN 92115-4.63 [id number] 10 Diagnos is: ICD-10- CM H61.21 Impacte d cerumen , right ear BHARATH [facility] NDRA C 11/23 [facility] [place] PT EDUCATION NOC INDIVID [id number] [id number] Diagnos is: ICD-10- CM H61.21 Impacte d cerumen , right ear JOSE MANUEL,ER IC K 11/27 [place] [facility] Outpatient Encounter [id number] 11/27 [facility] [facility] En[facility] [id number] 12/07 [facility] [place] [facility] [place] [facility]NAGEMENT [id number] Diagnos is: ICD-10- CM F10.230 Alcohol depende nce with withdra wal, uncompl icated GILL,OSCAR 12/21 [place] [facility] Outpatient Encounter [id number] 12/31 [facility] [place] Outpatient Encounter [id number] 12/31 [facility] [place] [facility] [id number] 1BY. 47 Diagnos is: ICD-10- CM F10.230 Alcohol depende nce with withdra wal, uncompl icated JAIRO,OSCAR 01/29 [place] [facility] [place] Outpatient Encounter [id number] 02/21 [facility] Encounter [id number] 02/26 [facility] [place] Encounter [id number] 02/26 [facility] [place] DEPOT FOR[place] [id number] Diagnos is: ICD-10- CM F10.230 Alcohol depende nce with withdra wal, uncompl icated GILL,OSCAR 02/28 [facility] OFFICE O/P EST MOD 30 MIN [id number] Diagnos is: ICD-10- CM F43.10 Post-tr aumatic stress disorde r, unspeci fied ST IRINEO LOCO G 03/01 [facility] IE [facility] [place] [facility] Outpatient Encounter [id number] 1.03/05 [facility] [place] [facility] [place] [facility] Outpatient Encounter [id number] 1.03/06 [facility] [place] [place] [facility] Outpatient Encounter [id number] 1.03/21 [facility] [place] [facility] [place] [facility] Outpatient Encounter [id number] 1.03/21 [facility] [place] [facility] [place] [facility]NAG[facility] [id number] Diagnos is: ICD-10- CM F10.230 Alcohol depende nce with withdra elizabeth, uncompl icated JAIROOSCAR 03/28 [facility] [place] , DEPOT FORM [id number] Diagnos is: ICD-10- CM F10.230 Alcohol depende nce with withdra wal, uncompl icated JAIRO,OSCAR 04/25 [facility] Outpatient Encounter [id number] [facility] [place] [facility] Outpatient Encounter [id number] 05/24 [facility] [place] [facility] [place] Outpatient Encounter [id number] [place] [facility] [place] [facility] Outpatient Encounter [id number] [facility] [place] [facility] [place] [facility] Outpatient Encounter [id number] 06/04 [facility] [place] [facility] [place] Outpatient Encounter [id number] 06/[address] [place] [facility] Outpatient Encounter [id number] 06/11 [facility] [place] [facility] [place] [facility] Outpatient Encounter [id number] 06/26 [facility] [place] [facility] [place] OFFICE O/P EST MOD 30 MIN [id number] Diagnos is: ICD-10- CM F43.10 Post-tr aumatic stress disorde r, unspeci fied CLAUDYST EPHEN G 06/28 [facility] CASE MANAGEMENT [id number] Diagnos is: ICD-10- CM F10.230 Alcohol depende nce with withdra elizabeth, uncompl icated OSCAR GILL 06/28 [facility] [place] [facility] [facility] Outpatient Encounter [id number] 06/28 [facility] [place] [facility] [place] OFF/OP EST MAY X REQ PHY/QHP [id number] Diagnos is: ICD-10- CM I10 Essenti al (primar y) hyperte nsion JOSE MANUEL,ER IC K 06/28 [facility] ELECTROCAR DIOGRAM REPORT [id number] Diagnos is: ICD-10- CM Z13.6 Encount er for screeni ng for cardiov ascular disorde rs TRISTAN LAI 06/28 [place] [facility] Out[facility] Encounter [id number] 07/16 [facility] [place] [place] Outpatient Encounter [id number] 07/16 [place] [facility] Outpatient Encounter [id number] 07/16 [facility] [place] [facility] [place] OFFICE O/P EST MOD 30 MIN [id number] Diagnos is: ICD-10- CM I10 Essenti al (primar y) hyperte nsion ABEL KOHLER A 07/16 [facility] [place] [facility] [place] [facility] Outpatient Encounter [id number] 07/16 [facility] [place] [facility] [place] Outpatient Encounter [id number] 07/30 [facility] Outpatient Encounter [id number] 07/30 [facility] [place] [facility] Out[facility] Encounter [id number] [facility] [place] Out[facility] Encounter [id number] [facility] [place] [facility] [place] Out[facility] Encounter [id number] 1.08/13 [facility] [place] [facility] Social History Combined list of available smoking, tobacco, and other social history from Department of Defense and Veterans Affairs facilities. Social History Type Response Date Comment Sour e Tobacco smoking status [facility]-TOBACCO NEVER USED CIGARETTES 07/16/2024 [place] History of tobacco use [facility]-TOBACCO NEVER USED OTHER TYPE 07/16/2024 [place] History of tobacco use [facility]-TOBACCO NEVER USED 01/19/2023 [facility] History of tobacco use [facility]-TOBACCO NEVER USED 06/14/2022 RADHA MATA SE NOELLE [facility] History of tobacco use [facility] ADMIT TOBACCO SCREEN NO 02/18[facility] of tobacco use [facility]-TOBACCO NEVER USED 02/18/2022 [facility] This section is an empty social history section. [facility] Plan of Care List of future care activities from Department of Veterans Affairs facilities. Additional future care activities may be listed in the Assessment and Plan section. Date/Time Care Activity Care Activity Detail [facility] 08/28/2024 AMBULATORY - PSYCHIATRY AMBULATORY - PSYC [facility] [place] 09/12/2024 AMBULATORY - MEDICINE [facility] 10/24/2024 AMBULATORY - MEDICINE AMBULATORY - MEDICI [facility] 07/16/2024 Consult Order COMMUNITY CARE-COLONOSCOPY SCREENING WITH EGD Cons Central Office Frame Wirer's Choice [place] Advance Directives List of completed, amended, or rescinded Advance Directives on record at [facility] facilities. An actual copy of the Directive is not included. Date Advance Directive Provider Source 11/22/2022 ADVANCE DIRECTIVE DISCUSSION RAFAELA MANRIQUEZ [facility] 04/20/2022 ADVANCE DIRECTIVE SIN [place]ART[place]
--- OUTSIDE RECORDS SUMMARY | 2024-08-14 17:14 | XMS_ITS | Encounter Summary ---
Author Name [facility] [place] Organization [place] Address [address] [place] [address] Care Team Providers Care Tractor Operator Battery Name Role Phone JARROD KOHLER Primary Care [...] Christianson's Name Patient's Relationship to Policy Christianson [facility] CE ORGANIZAT ION HEALT H [facility] Dec 11, 2023 [id number] NALLELY,LAWRENCE ID PATIENT [facility] CE ORGANIZAT ION FAIRV IEW COMMO NS Nov 24, 2021 [id number] NALLELY,LAWRENCE ID PATIENT [facility] CE ORGANIZAT ION [facility] Sep 11, 2019 [id number] NALLELY,LAWRENCE ID PATIENT [facility] CE ORGANIZAT ION FAIRV IEW COMMO NS Apr 12, 2012 [id number] [phone] NALLELY,LAWRENCE ID PATIENT OPTUM RX PRESCRIPT ION [employer] [facility] PEE May 14, 2024 [facility] [id number] [phone] NALLELY,LAWRENCE ID PATIENT OPTUM RX PRESCRIPT ION HDHP/ HSA Nov 24, 2021 [facility] [id number] [phone] NALLELY,LAWRENCE ID PATIENT OPTUM RX PRESCRIPT ION [facility]ALT [facility] [place] Nov 24, 2021 [facility] [id number] [phone] NALLELY,LAWRENCE ID PATIENT OPTUM RX PRESCRIPT ION HEALT H NEW [facility] Sep 11, 2019 [facility] [id number] [phone] NALLELY,LAWRENCE ID PATIENT OPTUM RX PRESCRIPT ION [facility]ALT [facility] Aug 17, 2004 NONE [id number] [phone] NALLELY,LAWRENCE ID PATIENT Selected Encounter This section includes the information on record at [place] for the Encounter. Date/Time Encounter Type Encounter Description Reason Pro vider Source Jun 11, 2024 09:30 AM Outpatient Encounter [facility] Encounter Template Text not used by [place] Plan of Treatment: Future Appointments (+ 6 months) and Future Tests (+/- 45 days) The Plan of Treatment section includes future care activities for the [facility] [place] [facility] This section includes future appointments and future orders which are active, pending or scheduled. Future Appointments This section includes appointments that were scheduled to occur 6 months from the date of the Encounter, up to a maximum of 20 appointments. The data comes from all [place] treatment facilities. Appointment Date/Time Appointment Type Appointme nt Facility Name Jun 28, 2024 11:30 AM AMBULATORY - PSYCHIATRY [facility] Jun 28, 2024 12:00 PM [facility] [place] [facility] Jun 28, 2024 12:45 PM AMBULATORY - MEDICINE [facility] Jul 16, 2024 01:15 PM AMBULATORY - MEDICINE [facility] Jul 16, 2024 01:30 PM AMBULATORY - MEDICINE [facility] Jul 30, 2024 10:00 AM AMBULATORY - MEDICINE [place] [place] [facility] Jul 30, 2024 10:30 AM AMBULATORY - PSYCHIATRY [place] [facility] [place] [facility] Aug 28, 2024 11:00 AM AMBULATORY - PSYCHIATRY [facility] Sep 12, 2024 10:00 AM AMBULATORY - MEDICINE [facility] October 24, 2024 02:00 PM AMBULATORY - [...] of theEncounter. The data comes from all [place] treatment facilities. Test Date/Time Test Type Test Details Facility Name Jun 28, 2024 03:38 PM Consult Order EKG TRACIN G/SPOPC OUTPT Cons Management Liaison's [facility] Jul 16, 2024 02:18 PM Consult Order COMMUNITY CARE-COLONOSCOPY SCREENING WITH EGD [facility] Advance Directives: All historical and current Section Date Range: From patient's date of to the date document was created. This section includes ALL of a patient's completed or amended [place] Advance and Rescinded Directives. The entries below indicate that a directive exists for the patient, but an actual copy is not included with this document. The data comes from all [place] facilities. Date Advance Directives Provider Source Nov 22, 2022 ADVANCE DIRECTIVE DISCUSSION RAFAELA MANRIQUEZ [facility] Apr 20, 2022 ADVANCE DIRECTIVE SIN WHARTON [facility] Encounter Notes: All associated encounter notes This section contains the clinical notes associated to the Encounter. Date/Time Encounter Note(s) Provider Source Jun 11, 2024 09:52 AM CLERICAL NOTE: LOCAL TITLE: APPOINTMENT NO SHOW STANDARD TITLE: CLERICAL NOTE DATE OF NOTE: JUN 11, 2024@09:52 ENTRY DATE: JUN 11, 2024@09:52:08 AUTHOR: FITO LOCO EXP COSIGNER: URGENCY: STATUS: COMPLETED APPOINTMENT NO SHOW Has ADDENDA Patient Name: JARROD BROWNING Patient SSN: [id number] Date and time of Appointment No show : 06/11/24 09:30 PATIENT PHONE - PHONE NUMBER [CELLULAR] - Patient's medical record was reviewed. Follow-up actions were determined and initiated: Please check/complete as applies: [X]Telephoned Directly -- I called pt x2 and left VMs to encourage pt to rama in clinic [ ]Re-scheduled for next available appt [X]Sent a N0-show letter ( must call for appointment) [ ]Other (Emergent/Overbook, etc.): Additional Comments: Future Clinic Visits 06/11/2024 10:30 CWM/SO/MHC/JAIRO 07/16/2024 13:30 CWM/SO/PACT 1 SHINE WORKER /gustabo/ FITO LOCO MD STAFF PSYCHIATRIST Signed: 06/11/2024 13:27 Receipt Acknowledged By: 06/11/2024 14:04 /gustabo/ Clau Clinton ADVANCED INDUSTRIAL ACCOUNTANT 06/13/2024 ADDENDUM STATUS: COMPLETED LM asking for a call back to schedule appointment with me /gustabo/ OSCAR GILL Registered Nurse Signed: 06/13/2024 13:11 FITO LOCO
--- OUTSIDE RECORDS SUMMARY | 2024-08-14 17:14 | XMS_ITS | Encounter Summary ---
Author Name [place] Address [address] [place] [address] Care Team Providers Care Steward/Stewardess Wine Name Role Phone JARROD KOHLER Primary Care [...] Christianson's Name Patient's Relationship to Policy Christianson [facility] CE ORGANIZAT ION HEALT H [facility] Dec 11, 2023 [id number] NALLELY,LAWRENCE ID PATIENT [facility] CE ORGANIZAT ION FAIRV IEW COMMO NS Nov 24, 2021 [id number] NALLELY,LAWRENCE ID PATIENT [facility] CE ORGANIZAT ION [facility] Sep 11, 2019 [id number] [phone] NALLELY,LAWRENCE ID PATIENT [facility] CE ORGANIZAT ION FAIRV IEW COMMO NS Apr 12, 2012 [id number] [phone] NALLELY,LAWRENCE ID PATIENT OPTUM RX PRESCRIPT ION [facility] PEE May 14, 2024 [facility] [id number] [phone] NALLELY,LAWRENCE ID PATIENT OPTUM RX PRESCRIPT ION HDHP/ HSA Nov 24, 2021 [facility] [id number] [phone] NALLELY,LAWRENCE ID PATIENT OPTUM RX PRESCRIPT ION HEALT H [place] Nov 24, 2021 [facility] [id number] [id number] NALLELY,LAWRENCE ID PATIENT OPTUM RX PRESCRIPT ION HEALT [facility] [place] Sep 11, 2019 [facility] [id number] [id number] NALLELY,LAWRENCE ID PATIENT OPTUM RX PRESCRIPT ION HEALT H [place] Aug 17, 2004 [facility] [id number] [id number] NALLELY,LAWRENCE ID PATIENT Selected Encounter This section includes the information on record at [place] for the Encounter. Date/Time Encounter Type Encounter Description Reason Pro vider Source Aug 13, 2024 03:13 PM Outpatient Encounter ADMIN PAT ACTIVTIES (MASNONCT) IHE Encounter Template Text not used by [place] Plan of Treatment: Future Appointments (+ 6 months) and Future Tests (+/- 45 days) The Plan of Treatment section includes future care activities for the patient from all [place] treatmentfacilities. This section includes future appointments and future orders which are active, pending or scheduled. Future Appointments This section includes appointments that were scheduled to occur 6 months from the date of the Encounter, up to a maximum of 20 appointments. The data comes from all [place] treatment facilities. Appointment Date/Time Appointment Type Appointme nt Facility Name Aug 28, 2024 11:00 AM AMBULATORY - PSYCHIATRY [facility] Sep 12, 2024 10:00 AM AMBULATORY - MEDICINE [place] [facility] [place] [facility] October 24, 2024 02:00 PM [facility] Active, Pending, and Scheduled Orders This section includes a listing of several types of active, pending, and scheduled orders, including clinic medications orders, diagnostic test orders, procedure orders and consult orders; where the start date of the order is 45 days before the date of the Encounter or 45 days after the date of theEncounter. The data comes from all [place] treatment facilities. Test Date/Time Test Type Test Details Facility Name Jul 16, 2024 02:18 PM Consult Order COMMUNITY CARE-COLONOSCOPY SCREENING WITH EGD Cons Chromosomal Disorders Counselor's Choice [place] Lab Results: +/- 30 days of the encounter This section includes the Chemistry and Hematology Lab Results on record with [place] for the patient. Radiology Reports and Pathology Reports are provided separately, in subsequent sections. Lab Results This section contains the Chemistry/Hematology Results that were resulted 30 days before or 30 daysafter the date of the Encounter. Date/Time Source Result Type Result - Unit Interpretation Reference Range Comment Jul 16, 2024 01:28 PM [facility] LIVER FUNCTION Specimen Type: SERUM No comment entered. Ordering Provider: RASHAWN LOCO Report Released Date/Time: Jun 28, 2024 12:42 PM Reporting Lab: [address] [address] Performing Lab: [address] [address] PROTEIN,TOTAL 8.6 g/dL H 6.0-8.3 ALBUMIN 3.9 g/dL 3.5-5.0 ALKALINE PHOSPHATASE 98 U/L 40-150 AST 66 U/L H 5-34 ALT 42 U/L BILIRUBIN, TOTAL 0.4 mg/dL 0.2-1.2 Jul 16, 2024 01:28 PM [facility] MAGNESIUM Specimen Type: SERUM No comment entered. Ordering Provider: JARROD KHOLER Report Released Date/Time: Jul 16, 2024 01:10 PM Reporting Lab: [address] [address] Performing Lab: [address] [address] MAGNESIUM 1.4 mg/dL L 1.6-2.6 Jul 16, 2024 01:28 PM [facility] LIPID PANEL, NON FASTING Specimen Type: SERUM No comment entered. Ordering Provider: JARROD KOHLER Report Released Date/Time: Jul 16, 2024 01:10 PM Reporting Lab: [address] [address] Performing Lab: [address] [address] CHOLESTEROL 197 mg/dL TRIGLYCERIDE 79 mg/dL 0-150 LDL calculated 119 mg/dL 0-129 CHOL/HDL 3.2 HDL CHOLESTEROL 62 mg/dL H 40-60 Jul 16, 2024 01:28 PM [place] BASIC METABOLIC PANEL (non-fasting) Spe cimen Type: SERUM No comment entered. Ordering Provider: JARROD KOHLER Report Released Date/Time: Jul 16, 2024 01:10 PM Reporting Lab: [address] [address] Performing Lab: [address] [address] UREA NITROGEN 7 mg/dL 7-25 GLUCOSE 136 mg/dL H 65-100 SODIUM 138 mmol/L 135-145 POTASSIUM 3.6 mmol/L 3.5-5.0 CHLORIDE 104 mmol/L 100-110 CO2 23 meq/L 20-30 CREATININE, Serum 0.99 mg/dL 0.50-1.40 eGFR(CKD-EPI 2020) 89 mL/min >60 Jul 16, 2024 01:28 PM [facility] CBC Specimen Type: BLOOD No comment entered. Ordering Provider: JARROD KOHLER Report Released Date/Time: Jul 16, 2024 01:10 PM Reporting Lab: [address] [address] Performing Lab: [address] [address] WBC 4.47 10*3/uL L 4.50-11.00 RBC 4.95 [...] and tobacco- related health factors from the [facility] where the Encounter took place. Current Smoking Status This section includes the most current smoking, or tobacco-related health factor, from the [place] facility where the Encounter took place. Date/Time Current Smoking Status Comment Taz tam Feb 18, 2022 02:51 PM [facility] ADMIT TOBACCO SCREEN NO [facility] Tobacco Use History This section includes a history of the smoking, or tobacco-related health factors, that were collected on or before the date of the Encounter. The data comes from the [place] facility where the Encounter took place. Date/Time Smoking Status/Tobacco Use Comment F acility Feb 18, 2022 09:30 AM VA-TOBACCO NEVER USED [facility] Advance Directives: All historical and current Section Date Range: From patient's date of to the date document was created. This section includes ALL of a patient's completed or amended [place] Advance and Rescinded Directives. The entries below indicate that a directive exists for the patient, but an actual copy is not included with this document. The data comes from all [place] facilities. Date Advance Directives Provider Source Nov 22, 2022 ADVANCE DIRECTIVE DISCUSSION RAFAELA MANRIQUEZ [facility] Apr 20, 2022 ADVANCE DIRECTIVE SIN WHARTON [facility] Encounter Notes: All associated encounter notes This section contains the clinical notes associated to the Encounter. Date/Time Encounter Note(s) Provider Source Aug 13, 2024 03:13 PM ADMINISTRATIVE NOT E: LOCAL TITLE: CCC: SCHEDULING ADMINISTRATION STANDARD TITLE: ADMINISTRATIVE NOTE DATE OF NOTE: AUG 13, 2024@15:13:59 ENTRY DATE: AUG 13, 2024@15:13:59 AUTHOR: ELSIE MONTEZ COSIGNER: URGENCY: STATUS: COMPLETED CCC: SCHEDULING ADMINISTRATION Has ADDENDA Patient Demographics Patient Name: JARROD BROWNING Patient Primary Phone: [phone] Patient Primary Address: [address] [place] [address] Patient : 1965 Patient Age: 58 Caller/Recipient Relation to Patient: Self Caller Name: JARROD BROWNING Administrative Administrative Note Reason: Other Administrative Note Comments: CALLING TO MAKE BP CHECK APPT HOWEVER WOULD ALSO LIKE TO ADD ONTO THAT APPT A SHOT FOR THE ALCOHOL. WOULD LIKE A CALL BACK FROM PRIMARY CARE TO SET UP THIS APPT. PLEASE ASSIST. IMPORTANT: This note was created by [facility] staff. Please do not alert the staff member by adding them as a signer for future communications. Alerts are not monitored by this user. /gustabo/ ELSIE FOWLER 1 CCC AMSA Signed: 08/13/2024 15:14 Receipt Acknowledged By: 08/13/2024 16:30 /gustabo/ HEMAL TA REGISTERED NURSE 08/14/2024 10:51 /es/ ATA THOMAS LPN LPN 08/13/2024 ADDENDUM STATUS: COMPLETED MSA: Please schedule RN visit for BP check with , thank you. /cory TA REGISTERED NURSE Signed: 08/13/2024 16:30 Receipt Acknowledged By: * AWAITING SIGNATURE * LOLA MURRELL 08/13/2024 ADDENDUM STATUS: COMPLETED Message forwarded to provider to review and advise if MH consult is needed for IM medication for Alcohol Use Disorder. /cory TA REGISTERED NURSE Signed: 08/13/2024 16:32 Receipt Acknowledged By: * AWAITING SIGNATURE * JARROD KOHLER 08/14/2024 ADDENDUM STATUS: COMPLETED Marissa does not need a MH consult for injection. We will contact to schedule this. Thank you /gustabo/ OSCAR GILL Registered Nurse Signed: 08/14/2024 15:25 ELSIE MONTEZ [place] [facility] [facility]
--- OUTSIDE RECORDS SUMMARY | 2024-08-14 17:14 | XMS_ITS | Encounter Summary ---
Author Name [facility] [place] Address [address] [place] [id number] Care Team Providers Care Inspector Multifocal Lens Name Role Phone JARROD KOHLER Primary Care [...] Christianson's Name Patient's Relationship to Policy Christianson [facility] CE ORGANIZAT ION HEALT H [facility] Dec 11, 2023 [id number] [phone] NALLELY,LAWRENCE ID PATIENT [facility] CE ORGANIZAT ION FAIRV IEW COMMO NS Nov 24, 2021 [id number] [phone] NALLELY,LAWRENCE ID PATIENT [facility] CE ORGANIZAT ION [facility] Sep 11, 2019 [id number] [phone] NALLELY,LAWRENCE ID PATIENT [facility] CE ORGANIZAT ION FAIRV IEW COMMO NS Apr 12, 2012 [id number] [phone] NALLELY,LAWRENCE ID PATIENT OPTUM RX PRESCRIPT ION [facility] PEE May 14, 2024 [facility] [id number] [id number] NALLELY,LAWRENCE ID PATIENT OPTUM RX PRESCRIPT ION HDHP/ HSA Nov 24, 2021 [facility] [id number] [id number] NALLELY,LAWRENCE ID PATIENT OPTUM RX PRESCRIPT ION HEALT H [place] Nov 24, 2021 [facility] [id number] [id number] NALLELY,LAWRENCE ID PATIENT OPTUM RX PRESCRIPT ION HEALT H [place] Sep 11, 2019 [facility] [id number] [phone] NALLELY,LAWRENCE ID PATIENT OPTUM RX PRESCRIPT ION HEALT H [place] Aug 17, 2004 NONE [id number] NALLELY,LAWRENCE ID PATIENT Selected Encounter This section includes the information on record at [place] for the Encounter. Date/Time Encounter Type Encounter Description Reason Provider Source Nov 24, 2023 12:00 PM OFFICE O/P EST LOW 20 MIN PRIMARY CARE/MEDICINE ICD-10-CM H61.21 Impacted cerumen, right ear [facility] Encounter Template Text not used by [place] Assessments - Encounter Diagnoses This section includes the primary and secondary diagnoses documented for the Encounter. Date/Time Primary/Secondary Diagnosis Diagnosis Name Provider Source Nov 26, 2023 12:49 PM PRIMARY Impacted cerumen, right ear [facility] [place] Plan of Treatment: Future Appointments (+ 6 months) and Future Tests (+/- 45 days) The Plan of Treatment section includes future care activities for the patient from all [place] treatmentfacilities. This section includes future appointments and future orders which are active, pending or scheduled. Future Appointments This section includes appointments that were scheduled to occur 6 months from the date of the Encounter, up to a maximum of 20 appointments. The data comes from all [place] treatment facilities. Appointment Date/Time Appointment Type Appointme nt Facility Name Nov 28, 2023 11:00 AM AMBULATORY - MEDICINE [facility] 2023 08:30 AM [facility] [place] [facility] [place] [facility] Jan 30, 2024 01:00 PM [facility] [place] [facility] [place] [facility] Feb 29, 2024 10:00 AM [facility] Mar 01, 2024 09:30 AM AMBULATORY - PSYCHIATRY [facility] Mar 28, 2024 11:00 AM AMBULATORY - PSYCHIATRY [facility] Apr 25, 2024 01:00 PM AMBULATORY PSYCHIATRY [facility] May 24, 2024 11:00 AM AMBULATORY PSYCHIATRY [facility] Active, Pending, and Scheduled Orders This section includes a listing of several types of active, pending, and scheduled orders, including clinic medications orders, diagnostic test orders, procedure orders and consult orders; where the start date of the order is 45 days before the date of the Encounter or 45 days after the date of theEncounter. The data comes from all [place] treatment facilities. Test Date/Time Test Type Test Details Facility Name November 06, 2023 12:00 AM Laboratory - Chemi stry Order VITAMIN D (25-OH) BLOOD (SST-SERUM) [facility] Vital Signs: All taken on the encounter date This section contains inpatient and outpatient Vital Signs collected on the date of the Encounter. Date/Time Temperature Pulse Blood Pressure Respiratory Rate SP02 Pain Height Weight Body Mass Index Source Nov 24, 2023 12:42 PM 98.1 64 152/[address] [facility] [place] Advance Directives: All historical and current Section Date Range: From patient's date of to the date document was created. This section includes ALL of a patient's completed or amended [place] Advance and Rescinded Directives. The entries below indicate that a directive exists for the patient, but an actual copy is not included with this document. The data comes from all [facility]. Date Advance Directives Provider Source Nov 22, 2022 ADVANCE DIRECTIVE DISCUSSION RAFAELA MANRIQUEZ [facility] Apr 20, 20[address] [facility] [place] Encounter Notes: All associated encounter notes This section contains the clinical notes associated to the Encounter. Date/Time Encounter Note(s) Provider Source Nov 24, 2023 12:05 PM NURSE PRACTITIONER NOTE: LOCAL TITLE: NURSE PRACTIONER/SICK VISIT STANDARD TITLE: NURSE PRACTITIONER NOTE DATE OF NOTE: NOV 24, 2023@12:05 ENTRY DATE: NOV 24, 2023@12:05:08 AUTHOR: ESTEPHANIA [facility] EXP COSIGNER: URGENCY: STATUS: COMPLETED SICK CALL VISIT JARROD BROWNING is a 57 y/o DECLINED TO ANSWER MALE [place] who presents to [facility] sick call with c/o Wants ears checked, states he's been a little dizzy and his equilibrium is off. Attempted to remove wax from right ear because it feels clogged. Sx x several days. [facility] PCP: ======= PACT 1 pending VITAL SIGNS: Blood Pressure: 152/90 (11/24/2023 12:42) Pain: 0 (11/24/2023 12:42) Patient Height: 65 in [165.1 cm] (09/01/2023 11:26) Patient Weight: 184.3 lb [83.60 kg] (11/24/2023 11:40) Pulse: 64 (11/24/2023 12:42) Respiration: 16 (11/24/2023 12:42) Temperature: 98.1 F [36.7 C] (11/24/2023 12:42) REVIEW OF SYSTEMS: see HPI PHYSICAL EXAMINATION: General: Well-appearing [place] in no obvious distress. Mental Status: Alert and oriented x4. ENT: Cerumen impaction right ear. Left ear canal and TM wnl. Lungs: respirations easy and unlabored Psych: Normal mood and affect. Normal judgment. Cooperative with exam, follows commands. ASSESSMENT/PLAN: Right ear cerumen impaction - irrigated in clinic but unable to fully remove. Prescribed Debrox and instructed to return 4 days for RN visit and f/u irrigation. MEDICATIONS reviewed with FOLLOW UP: Return to clinic 3-5 days if no improvement in symptoms. UPCOMING APPOINTMENTS: No data available /gustabo/ SHERWIN REAL CERTIFIED NURSE PRACTITIONER Signed: 11/26/2023 12:49 [facility]
--- OUTSIDE RECORDS SUMMARY | 2024-08-14 17:14 | XMS_ITS | Encounter Summary ---
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 CE ORGANIZAT ION HEALT H [facility] Dec 11, 2023 [id number] [phone] NALLELY,LAWRENCE ID PATIENT [facility] CE ORGANIZAT ION FAIRV IEW COMMO NS Nov 24, 2021 [id number] [id number] [phone] NALLELY,LAWRENCE ID PATIENT [facility] CE ORGANIZAT ION [facility] Sep 11, 2019 [id number] [phone] NALLELY,LAWRENCE ID PATIENT [facility] CE ORGANIZAT ION FAIRV IEW COMMO NS Apr 12, 2012 [id number] [phone] NALLELY,LAWRENCE ID PATIENT OPTUM RX PRESCRIPT ION [facility] PEE May 14, 2024 [facility] [id number] [id number] ANLLELY,LAWRENCE ID PATIENT OPTUM RX PRESCRIPT ION HDHP/ HSA Nov 24, 2021 [facility] [id number] [phone] NALLELY,LAWRENCE ID PATIENT OPTUM RX PRESCRIPT ION HEALT H [place] Nov 24, 2021 [facility] [id number] [id number] NALLELY,LAWRENCE ID PATIENT OPTUM RX PRESCRIPT ION HEALT H [place] Sep 11, 2019 [facility] [id number] [id number] NALLELY,LAWRENCE ID PATIENT OPTUM RX PRESCRIPT ION HEALT H [place] Aug 17, 2004 NONE [id number] [phone] NALLELY,LAWRENCE ID PATIENT Selected Encounter This section includes the information on record at [place] for the Encounter. Date/Time Encounter Type Encounter Description Reason Provider Source Sep 01, 2023 11:00 AM OFFICE O/P EST MOD 30 MIN PRIMARY CARE/MEDICINE ICD-10-CM E55.9 Vitamin D deficiency, unspecified PRUDENCIO NUÑEZ Marilyn Encounter Template Text not used by [place] Assessments - Encounter Diagnoses This section includes the primary and secondary diagnoses documented for the Encounter. Date/Time Primary/Secondary Diagnosis Diagnosis Name Provider Source Sep 01, 2023 11:54 AM PRIMARY Vitamin D deficiency, unspecified PRUDENCIO NUÑEZ PAPILLION Sep 01, 2023 11:54 AM SECONDARY Depression, unspecified PRUDENCIO NUÑEZ RUBINA Sep 01, 2023 11:54 AM SECONDARY Essential (primary) hypertension PRUDENCIO NUÑEZ PAPILLION Sep 01, 2023 11:54 AM SECONDARY Male erectile dysfunction, unspecified PRUDENCIO NUÑEZ PAPILLION Sep 01, 2023 11:54 AM SECONDARY Post-traumatic stress disorder, unspecified PRUDENCIO NUÑEZ PAPILLION Sep 01, 2023 11:54 AM SECONDARY Thrombocytopenia, unspecified PRUDENCIO NUÑEZ PAPILLION Plan of Treatment: Future Appointments (+ 6 months) and Future Tests (+/- 45 days) The Plan of Treatment section includes future care activities for the patient from all [place] treatmentfacilities. This section includes future appointments and future orders which are active, pending or scheduled. Future Appointments This section includes appointments that were scheduled to occur 6 months from the date of the Encounter, up to a maximum of 20 appointments. The data comes from all [place] treatment facilities. Appointment Date/Time Appointment Type Appointme nt Facility Name Sep 11, 2023 10:30 AM AMBULATORY - MEDICINE [facility] Sep 11, 2023 11:00 AM AMBULATORY - PSYCHIATRY [facility] October 24, 2023 10:00 AM [facility] [facility] [place] [facility], 2023 11:00 AM AMBULATORY - PSYCHIATRY [facility] Nov 24, 2023 11:00 AM [facility] [facility] [place] [place] [facility] Nov 24, 2023 11:45 AM AM[facility]ULATORY - MEDICINE [facility] Nov 24, 2023 12:00 PM [facility]ORY [facility]ICINE [facility] Nov 28, 2023 11:00 AM [facility]ORY [facility] 2023 08:30 AM [place] [facility] [facility] Jan 30, 2024 01:00 PM AMBULATORY - [place]IATRY [place] [facility] [place] [place] [facility] Feb 29, 2024 10:00 AM AMB[place] [facility] [facility] Mar 01, 2024 09:30 AM AMBULATORY - PSYCHIATRY [facility] Vital Signs: All taken on the encounter date This section contains inpatient and outpatient Vital Signs collected on the date of the Encounter. Date/Time Temperature Pulse Blood Pressure Respiratory Rate SP02 Pain Height Weight Body Mass Index Source Sep 01, 2023 11:26 AM 98 62 141/72 18 97 0 65 185 31 [facility] [place] Advance Directives: All historical and current Section Date Range: From patient's date of to the date document was created. This section includes ALL of a patient's completed or amended [place] Advance and Rescinded Directives. The entries below indicate that a directive exists for the patient, but an actual copy is not included with this document. The data comes from all [facility]. Date Advance Directives Provider Source Nov 22, 2022 ADVANCE DIRECTIVE DISCUSSION RAFAELA MANRIQUEZ [facility] Apr 20, 2022 ADVANCE DIRECTIVE SIN WH[place]ON [facility] [place] Encounter Notes: All associated encounter notes This section contains the clinical notes associated to the Encounter. Date/Time Encounter Note(s) Provider Source Sep 01, 2023 11:29 AM PHYSICIAN NOTE: LOCAL TITLE: MD NOTE STANDARD TITLE: PHYSICIAN NOTE DATE OF NOTE: SEP 01, 2023@11:29 ENTRY DATE: SEP 01, 2023@11:29:40 AUTHOR: PRUDENCIO NUÑEZ COSIGNER: URGENCY: STATUS: COMPLETED PRIMARY CARE VISIT JARROD MAINOR BROWNING, is a 57 yo DECLINED TO ANSWER MALE [place] who [place] today at the [place] [facility]. TYPE OF VISIT: Face to face CHART REVIEWED, PATIENT EXAMINED. HPI: emotionally feeling okay had decreased his clonidine from 3 tabs 1x per day to 1 tab 1x per day due to ADR: dry mouth, drowsiness he does feel that it helps his anxiety I did tell him that he could try the clonidine tid prn for the anxiety and asked that he f/u with his psychiatrist on this BP's remain elevated on Lisinopril 10mg daily Vitamin D too low per lab Viagra +/- helpful Testosterone level borderline low unclear if sig platelets low, but no s/s bleeding Most Recent labs reviewed and all medications were reconciled during this visit. Service Connection/Rated Disabilities: Service Connected Disabilities with % Eligibility: [place] LESS THAN 50% VERIFIED Total S/C %: 10 TINNITUS 10% S/C IMPAIRED HEARING 0% S/C HEALTHCARE PROVIDERS: Psych: Dr. Ortiz HISTORY: PERIOD OF SERVICE - [employer] FROM Dec TO Jan COMBAT SERVICE INDICATED: No VITAL SIGNS: Temperature 98 F [36.7 C] (09/01/2023 11:26) Blood Pressure 141/72 (09/01/2023 11:26) Pulse 62 (09/01/2023 11:26) Respiration 18 (09/01/2023 11:26) Pain 0 (09/01/2023 11:26) BMI BMI: 30.8 Weight 185 lb [83.91 kg] (09/01/2023 11:26) Pulse Oximetry 97% (09/01/2023 11:26) ASSISTIVE DEVICES: REVIEW OF SYSTEMS: All systems are reviewed and are otherwise negative, unless specified in the HPI. PHYSICAL EXAMINATION: General: Well-appearing, in no obvious distress. Mental Status: Alert and oriented x 3. Head: Normocephalic, atraumatic. Eyes: PERRL. EOMI. Anicteric sclerae. ENT: Moist oral mucosa. dentition Neck: Supple. FROM. No JVD. No LAD. No bruit. Thyroid unremarkable. Ext: No cyanosis or clubbing. No gross deformities. Neuro: CN II through XII grossly intact. Normal speech. Normal gait. Integument: Skin warm and dry. No rashes or lesions on visible areas. Psych: Normal mood and affect. Normal judgment. Cooperative with exam, follows commands. ALLERGIES: [employer]TENANCE PREVENTIVE MEDICINE GOALS Info Only: [facility] Video Connect Capable DUE NOW Home Telehealth (CCHT) Referral DUE NOW Mental Health Treatment Plan DUE NOW Medication Reconciliation DUE NOW HTN Assess for Elevated BP>=140/90 DUE NOW Herpes Zoster (Shingles) Vaccine DUE NOW ASSESSMENT/PLAN: Active problems - Computerized Problem List is the source for the followin. Vitamin D Deficiency ([facility] [id number])- too low start weekly vitamin d recheck in 3 months 2. Thrombocytopenia- unclear etiology but current stable no s/s bleeding 3. Erectile dysfunction- likely multifactorial etiology ? Testosterone borderline low refer to Urology 6. Depression- continues to struggle but denies thoughts of self harm connected to [facility] f/u psych care team 13. Posttraumatic stress disorder-see above 14. Hypertension- UNCONTROLLED Increase Lisinopril to 20mg per day 15. Severe alcohol dependence-reports that he's been sober x 2 years Total time I spent on this visit was 30 minutes and included a review of chart, labs, notes, physical exam and discussion/education of patient. LAB ORDERS FOR NEXT VISIT: NURSING: PLEASE ORDER APPROPRIATE CHRONIC DISEASE LAB ORDERS FOLLOW UP: Return to clinic as noted below and/or sooner PRN UPCOMING APPOINTMENTS: 09/11/2023 10:30 CWM/SO/PACT 2 09/11/2023 11:00 CWM/SO/MHC/GILL 09/29/2023 11:00 CWM/SO/MHC/ORTIZ All medications were reconciled during this visit. No barriers noted; patient understands and agrees to current treatment plan. If patient has any questions, concerns or changes in current health status he/she will call or come in to the VA. PACT TEAM INSTRUCTIONS: HTN Assess for Elevated BP>=140/90: The patient's medication regimen was adjusted to improve blood pressure control. Comment: increase lisinopril to 20mg per day Medication Reconciliation: Outpatient: Has the patient been taking medications as documented in the EMLR? YES: The patient has been taking medications as documented in the EMLR. Essential Medication List for Review used to complete this medication reconciliation. INCLUDED IN THIS LIST: Alphabetical list of active outpatient prescriptions dispensed from this [facility] (local) and dispensed from another [place] or [facility] facility (remote) as well as inpatient orders [...] whether with a VA or non-VA provider. /es/ PRUDENCIO NUÑEZ MD PHYSICIAN Signed: 09/01/2023 11:54 PRUDENCIO NUÑEZ Sep 01, 2023 11:21 AM PREVENTIVE MEDICIN E NURSING NOTE: LOCAL TITLE: CLINICAL REMINDERS/NURSING STANDARD TITLE: PREVENTIVE MEDICINE NURSING NOTE DATE OF NOTE: SEP 01, 2023@11:21 ENTRY DATE: SEP 01, 2023@11:22:39 AUTHOR: KITTY OSULLIVAN EXP COSIGNER: URGENCY: STATUS: COMPLETED BMI>30/>24.99 High Risk: At this visit, the health risks of obesity were reviewed and discussed with the [place], and the benefits of a weight management treatment program, such as MOVE! was discussed and offered to the [place]. After discussing the health risks of being overweight or obese and providing information about available weight management treatment, the [place] agreed to participate in the MOVE program and referral to the [facility] MOVE program was made. If MOVE program not availble, referred to Nutrition. The Med Rec was completed by the PCP. /gustabo/ KITTY OSULLIVAN LPN LICENSED PRACTICAL NURSE Signed: 09/01/2023 11:26 KITTY OSULLIVAN PAPILLION Aug 25, 2023 09:18 AM ADMINISTRATIVE NOT E: LOCAL TITLE: ADMINISTRATIVE NOTE STANDARD TITLE: ADMINISTRATIVE NOTE DATE OF NOTE: AUG 25, 2023@09:18 ENTRY DATE: AUG 25, 2023@09:19:04 AUTHOR: DEMETRIUS PATTON EXP COSIGNER: URGENCY: STATUS: COMPLETED [facility] [address] [place] [id number] [phone] * JARROD BROWNING [address] [place] [address] Date: AUG 25, 2023 re: This is a reminder of your upcoming PCP appt with PRUDENCIO NUÑEZ. Appointment Date: Aug@11:00 Appointment Type: In-person visit Fasting blood work NON fasting blood work LEFT MESSAGE ON VOICEMAIL TO CONFIRM Sincerely, Office Staff for: PRUDENCIO NUÑEZ Primary Care Provider [facility] [address] [place] [address] T [phone] F [phone] Upcoming Appointments: 09/01/2023 11:00 CWM/SO/PACT 2 09/11/2023 10:30 CWM/SO/PACT 2 09/11/2023 11:00 CWM/SO/MHC/GILL 09/29/2023 11:00 CWM/SO/MHC/ORTIZ APPOINTMENT ABBREVIATION MIMS (SPOPC OR SO = [place], [facility]) (GOPC OR GO = [place], [facility]) (NHM or NO = [facility]) (VVC - Video Call) (Tel-X Telephone Visit) ( - Telehealth) /gustabo/ DEMETRIUS ROBERTS Signed: 08/25/2023 09:19 DEMETRIUS PATTON
--- OUTSIDE RECORDS SUMMARY | 2024-08-14 17:14 | XMS_ITS | Encounter Summary ---
Author Name [facility] [place] Address [address] [place] [address] Care Team Providers Care Rn Bsn Name Role Phone JARROD KOHLER Primary Care [...] Christianson's Name Patient's Relationship to Policy Christianson [facility] CE ORGANIZAT ION HEALT H [facility] Dec 11, 2023 [id number] NALLELY,LAWRENCE ID PATIENT [facility] CE ORGANIZAT ION FAIRV IEW COMMO NS Nov 24, 2021 [id number] NALLELY,LAWRENCE ID PATIENT [facility] CE ORGANIZAT ION [facility] Sep 11, 2019 [id number] [phone] NALLELY,LAWRENCE ID PATIENT [facility] CE ORGANIZAT ION FAIRV IEW COMMO NS Apr 12, 2012 [id number] [phone] NALLELY,LAWRENCE ID PATIENT [facility] RX PRESCRIPT ION [facility] PEE May 14, 2024 [facility] [id number] [phone] NALLELY,LAWRENCE ID PATIENT OPTUM RX PRESCRIPT ION HDHP/ HSA Nov 24, 2021 [facility] [id number] [phone] NALLELY,LAWRENCE ID PATIENT OPTUM RX PRESCRIPT ION HEALT H [place] Nov 24, 2021 [facility] [id number] [phone] NALLELY,LAWRENCE ID PATIENT OPTUM RX PRESCRIPT ION HEALT H [place] Sep 11, 2019 [facility] [id number] [phone] NALLELY,LAWRENCE ID PATIENT OPTUM RX PRESCRIPT ION HEALT H [place] Aug 17, 2004 NONE [id number] NALLELY,LAWRENCE ID PATIENT Selected Encounter This section includes the information on record at [place] for the Encounter. Date/Time Encounter Type Encounter Description Reason Pro vider Source Jul 30, 2024 10:00 AM Outpatient Encounter PRIMARY CARE/MEDICINE IHE Encounter Template Text not used by [place] Plan of Treatment: Future Appointments (+ 6 months) and Future Tests (+/- 45 days) The Plan of Treatment section includes future care activities for the patient from all [place] [facility] This section includes future appointments and future orders which are active, pending or scheduled. Future Appointments This section includes appointments that were scheduled to occur 6 months from the date of the Encounter, up to a maximum of 20 appointments. The data comes from all [place] treatment facilities. Appointment Date/Time Appointment Type Appointme nt Facility Name Aug 28, 2024 11:00 AM AMBULATORY - PSYCHIATRY [facility] Sep 12, 2024 10:00 AM AMBULATORY - MEDICINE [facility] N[facility] [place] October 24, 2024 02:00 PM AMBULATORY - MEDICINE [facility] Active, Pending, and Scheduled Orders This section includes a listing of several types of active, pending, and scheduled orders, including clinic medications orders, diagnostic test orders, procedure orders and consult orders; where the start date of the order is 45 days before the date of the Encounter or 45 days after the date of theEncounter. The data comes from all [place] treatment facilities. Test Date/Time Test Type Test Details Facility Name Jun 28, 2024 03:38 PM Consult Order EKG TRACIN G/SPOPC OUTPT Cons [facility] Jul 16, 2024 02:18 PM Consult Order COMMUNITY CARE-COLONOSCOPY SCREENING WITH EGD Cons [facility] Lab Results: +/- 30 days of the encounter This section includes the Chemistry and Hematology Lab Results on record with [place] for the patient. Radiology Reports and Pathology Reports are provided separately, in subsequent sections. Lab Results This section contains the Chemistry/Hematology Results that were resulted 30 days before or 30 daysafter the date of the Encounter. Date/Time Source Result Type Result - Unit Interpretation Reference Range Comment Jul 16, 2024 01:28 PM [facility] LIVER FUNCTION Specimen Type: SERUM No comment entered. Ordering Provider: RASHAWN LOCO Report Released Date/Time: Jun 28, 2024 12:42 PM Reporting Lab: [address] [address] Performing Lab: [address] [address] PROTEIN,TOTAL 8.6 g/dL H 6.0-8.3 ALBUMIN 3.9 g/dL 3.5-5.0 ALKALINE PHOSPHATASE 98 U/L 40-150 AST 66 U/L H 5-34 ALT 42 U/L BILIRUBIN, TOTAL 0.4 mg/dL 0.2-1.2 Jul 16, 2024 01:28 PM [facility] MAGNESIUM Specimen Type: SERUM No comment entered. Ordering Provider: JARROD KOHLER Report Released Date/Time: Jul 16, 2024 01:10 PM Reporting Lab: [address] [address] Performing Lab: [address] [address] MAGNESIUM 1.4 mg/dL L 1.6-2.6 Jul 16, 2024 01:28 PM [facility] LIPID PANEL, NON FASTING Specimen Type: SERUM No comment entered. Ordering Provider: JARROD KOHLER Report Released Date/Time: Jul 16, 2024 01:10 PM Reporting Lab: [address] [address] Performing Lab: [address] [address] CHOLESTEROL 197 mg/dL TRIGLYCERIDE 79 mg/dL 0-150 LDL calculated 119 mg/dL 0-129 CHOL/HDL 3.2 HDL CHOLESTEROL 62 mg/dL H 40-60 Jul 16, 2024 01:28 PM [facility] BASIC METABOLIC PANEL (non-fasting) Spe cimen Type: SERUM No comment entered. Ordering Provider: JARROD KOHLER Report Released Date/Time: Jul 16, 2024 01:10 PM Reporting Lab: [address] [address] Performing Lab: [address] [address] UREA NITROGEN 7 mg/dL 7-25 GLUCOSE 136 mg/dL H 65-100 SODIUM 138 mmol/L 135-145 POTASSIUM 3.6 mmol/L 3.5-5.0 CHLORIDE 104 mmol/L 100-110 CO2 23 meq/L 20-30 CREATININE, Serum 0.99 mg/dL 0.50-1.40 eGFR(CKD-EPI 2020) 89 mL/min >60 Jul 16, 2024 01:28 PM [facility] CBC Specimen Type: BLOOD No comment entered. Ordering Provider: JARROD KOHLER Report Released Date/Time: Jul 16, 2024 01:10 PM Reporting Lab: [address] [address] Performing Lab: [address] [address] WBC 4.47 10*3/uL L 4.50-11.00 RBC 4.95 [...] and tobacco- related health factors from the [place] facility where the Encounter took place. Current Smoking Status This section includes the most current smoking, or tobacco-related health factor, from the [place] facility where the Encounter took place. Date/Time Current Smoking Status Comment Taz ity Jul 16, 2024 01:30 PM VA-TOBACCO NEVER USED CIGARETTES [facility] Tobacco Use History This section includes a history of the smoking, or tobacco-related health factors, that were collected on or before the date of the Encounter. The data comes from the [place] facility where the Encounter took place. Date/Time Smoking Status/Tobacco Use Comment F acility Jul 16, 2024 01:30 PM [place]-TOBACCO NEVER USED OTHER TYPE [facility] Advance Directives: All historical and current Section Date Range: From patient's date of to the date document was created. This section includes ALL of a patient's completed or amended [place] Advance and Rescinded Directives. The entries below indicate that a directive exists for the patient, but an actual copy is not included with this document. The data comes from all [place] facilities. Date Advance Directives Provider Source Nov 22, 2022 ADVANCE DIRECTIVE DISCUSSION RAFAELA MANRIQUEZ [facility] Apr 20, 2022 ADVANCE DIRECTIVE SIN [place] Encounter Notes: All associated encounter notes This section contains the clinical notes associated to the Encounter. Date/Time Encounter Note(s) Provider Source Jul 30, 2024 10:14 AM ADMINISTRATIVE NOT E: LOCAL TITLE: ADMINISTRATIVE NOTE STANDARD TITLE: ADMINISTRATIVE NOTE DATE OF NOTE: JUL 30, 2024@10:14 ENTRY DATE: JUL 30, 2024@10:15:06 AUTHOR: HEMAL TA EXP COSIGNER: URGENCY: STATUS: COMPLETED is no show for todays RN BP check visit. /gustabo/ HEMAL TA REGISTERED NURSE Signed: 07/30/2024 10:16 HEMAL TA
--- OUTSIDE RECORDS SUMMARY | 2024-08-14 17:15 | XMS_ITS ---
Author Name [place] Address [address] [place] [address] Care Team Providers Care Developmental Therapist Name Role Phone JARROD KOHLER Primary Care [...] Name Patient's Relationship to Policy Christianson [facility] CE ORGANIZAT ION HEALT H [facility] Dec 11, 2023 [id number] NALLELY,LAWRENCE ID PATIENT [facility] CE ORGANIZAT ION FAIRV IEW COMMO NS Nov 24, 2021 [id number] NALLELY,LAWRENCE ID PATIENT [facility] CE ORGANIZAT ION [facility] Sep 11, 2019 [id number] [id number] NALLELY,LAWRENCE ID PATIENT [facility] CE ORGANIZAT ION FAIRV IEW COMMO NS Apr 12, 2012 [id number] [phone] NALLELY,LAWRENCE ID PATIENT OPTUM RX PRESCRIPT ION [facility] May 14, [address] [facility] [id number] [id number] NALLELY,LAWRENCE ID PATIENT OPTUM RX PRESCRIPT ION HDHP/ HSA Nov 24, [address] [facility] [id number] [phone] NALLELY,LAWRENCE ID PATIENT OPTUM RX PRESCRIPT ION HEALT H [place] Nov 24, [address] [facility] [id number] [id number] NALLELY,LAWRENCE ID PATIENT OPTUM RX PRESCRIPT ION HEALT H [place] Sep 11, [address] [facility] [id number] [phone] NALLELY,LAWRENCE ID PATIENT OPTUM RX PRESCRIPT ION HEALT H [place] Aug 17, 2004 NONE [id number] [phone] NALLELY,LAWRENCE ID PATIENT Selected Encounter This section includes the information on record at [place] for the Encounter. Date/Time Encounter Type Encounter Description Reason Pro vider Source Aug 13, 2024 12:48 PM Outpatient Encounter PRIMARY CARE/MEDICINE IHE Encounter [...] 28, 2024 11:00 AM AMBULATORY - PSYCHIATRY [facility] Sep 12, 2024 10:00 AM AMBULATORY - MEDICINE [facility] NTRL [facility] [place] [facility] October 24, 2024 02:00 PM AMBULATORY - MEDICINE [facility] Active, Pending, and Scheduled Orders [...] Order COMMUNITY CARE-COLONOSCOPY SCREENING WITH EGD Cons [facility] Lab Results: +/- 30 days of the [...] Range Comment Jul 16, 2024 01:28 PM [facility] LIVER FUNCTION Specimen Type: SERUM No comment entered. Ordering Provider: RASHAWN LOCO Report Released Date/Time: Jun 28, 2024 12:42 PM Reporting Lab: [address] [address] Performing Lab: [address] [address] PROTEIN,TOTAL 8.6 g/dL H 6.0-8.3 ALBUMIN 3.9 g/dL 3.5-5.0 ALKALINE PHOSPHATASE 98 U/L 40-150 AST 66 U/L H 5-34 ALT 42 U/L BILIRUBIN, TOTAL 0.4 mg/dL 0.2-1.2 Jul 16, 2024 01:28 PM [facility] MAGNESIUM Specimen Type: SERUM No comment entered. Ordering Provider: JARROD KOHLER Report Released Date/Time: Jul 16, 2024 01:10 PM Reporting Lab: [address] [address] Performing Lab: [address] [address] MAGNESIUM 1.4 mg/dL L 1.6-2.6 Jul 16, 2024 01:28 PM [facility] LIPID PANEL, NON FASTING Specimen Type: SERUM No comment entered. Ordering Provider: JARROD KOHLER Report Released Date/Time: Jul 16, 2024 01:10 PM Reporting Lab: [address] [address] Performing Lab: [address] [address] CHOLESTEROL 197 mg/dL TRIGLYCERIDE 79 mg/dL 0-150 LDL calculated 119 mg/dL 0-129 CHOL/HDL 3.2 HDL CHOLESTEROL 62 mg/dL H 40-60 Jul 16, 2024 01:28 PM [facility] BASIC METABOLIC PANEL (non-fasting) Spe cimen Type: SERUM No comment entered. Ordering Provider: JARROD KOHLER Report Released Date/Time: Jul 16, 2024 01:10 PM Reporting Lab: [address] [address] Performing Lab: [address] [address] UREA NITROGEN 7 mg/dL 7-25 GLUCOSE 136 mg/dL H 65-100 SODIUM 138 mmol/L 135-145 POTASSIUM 3.6 mmol/L 3.5-5.0 CHLORIDE 104 mmol/L 100-110 CO2 23 meq/L 20-30 CREATININE, Serum 0.99 mg/dL 0.50-1.40 eGFR(CKD-EPI 2020) 89 mL/min >60 Jul 16, 2024 01:28 PM [facility] CBC Specimen Type: BLOOD No comment entered. Ordering Provider: JARROD KOHLER Report Released Date/Time: Jul 16, 2024 01:10 PM Reporting Lab: [address] [address] Performing Lab: [address] [address] WBC 4.47 10*3/uL L 4.50-11.00 RBC 4.95 [...] 02:51 PM ORYX ADMIT TOBACCO SCREEN NO [facility] Tobacco Use History This section includes a history of the smoking, or tobacco-related health factors, that were collected on or before the date of the Encounter. The data comes from the [place] facility where the Encounter took place. Date/Time Smoking Status/Tobacco Use Comment F acility Feb 18, 2022 09:30 AM VA-TOBACCO NEVER USED [facility] Advance Directives: All historical and [...] 22, 2022 ADVANCE DIRECTIVE DISCUSSION RAFAELA MANRIQUEZ [facility] Apr 20, 2022 ADVANCE DIRECTIVE SIN [place] Encounter Notes: All associated encounter notes This section contains the clinical notes associated to the Encounter. Date/Time Encounter Note(s) Provider Source Aug 13, 2024 12:48 PM CLERICAL NOTE: LOCAL TITLE: APPOINTMENT NO SHOW STANDARD TITLE: CLERICAL NOTE DATE OF NOTE: AUG 13, 2024@12:48 ENTRY DATE: AUG 13, 2024@12:48:51 AUTHOR: LOLA MURRELL EXP COSIGNER: URGENCY: STATUS: COMPLETED Patient Name: JARROD BROWNING Patient SSN: [id number] Date and time of Appointment No show : 08/13/24 12:48 PATIENT PHONE - PHONE NUMBER [CELLULAR] - Patient's medical record was reviewed. 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
--- OUTSIDE RECORDS SUMMARY | 2024-08-14 17:15 | XMS_ITS | Encounter Summary ---
Author Name [place] Address [address] [place] [address] Care Team Providers Care Pumping Supervisor Name Role Phone JARROD KOHLER Primary [...] Christianson's Name Patient's Relationship to Policy Christianson [facility] CE ORGANIZAT ION HEALT H [facility] Dec 11, 2023 [id number] NALLELY,LAWRENCE ID PATIENT [facility] CE ORGANIZAT ION FAIRV IEW COMMO NS Nov 24, 2021 [id number] NALLELY,LAWRENCE ID PATIENT [facility] CE ORGANIZAT ION [facility] Sep 11, 2019 [id number] [phone] NALLELY,LAWRENCE ID PATIENT [facility] CE ORGANIZAT ION FAIRV IEW COMMO NS Apr 12, 2012 [id number] [phone] NALLELY,LAWRENCE ID PATIENT OPTUM RX PRESCRIPT ION [facility] PEE May 14, 2024 [facility] [id number] [id number] NALLELY,LAWRENCE ID PATIENT OPTUM RX PRESCRIPT ION HDHP/ HSA Nov 24, 2021 [facility] [id number] [phone] NALLELY,LAWRENCE ID PATIENT OPTUM RX PRESCRIPT ION HEALT H [place] Nov 24, 2021 [facility] [id number] [id number] NALLELY,LAWRENCE ID PATIENT OPTUM RX PRESCRIPT ION HEALT H [facility] Sep 11, 2019 [facility] [id number] [phone] NALLELY,LAWRENCE ID PATIENT OPTUM RX PRESCRIPT [facility] Aug [facility], 2004 NONE [id number] NALLELY,LAWRENCE ID PATIENT Selected Encounter This section includes the information on record at [place] for the Encounter. Date/Time Encounter Type Encounter Description Reason Pro vider Source May 24, 2024 11:00 AM Outpatient Encounter [facility] Encounter Template Text not used by [place] Plan of Treatment: Future Appointments (+ 6 months) and Future Tests (+/- 45 days) The Plan of Treatment section includes future care activities for the patient from all [place] [facility]. This section includes future appointments and future orders which are active, pending or scheduled. Future Appointments This section includes appointments that were scheduled to occur 6 months from the date of the Encounter, up to a maximum of 20 appointments. The data comes from all [place] treatment facilities. Appointment Date/Time Appointment Type Appointme nt Facility Name Jun 11, 2024 09:30 AM AMBULATORY - PSYCHIATRY [facility] Jun 28, 2024 11:30 AM AMBULATORY - PSYCHIATRY [facility] Jun 28, 2024 12:00 PM AMBULATORY - PSYCHIATRY [place] [facility] Jun 28, 2024 12:45 PM AMBULATORY - MEDICINE [facility] Jul 16, 2024 01:15 PM AMBULATORY - MEDICINE [facility] Jul 16, 2024 01:30 PM AMBULATORY - MEDICINE [facility] Jul 30, 2024 10:00 AM AMBULATORY - MEDICINE [place] [facility] Jul 30, 2024 10:30 AM AMBULATORY - PSYCHIATRY [place] [facility] Aug 28, 2024 11:00 AM AMBULATORY - PSYCHIATRY [facility] Sep 12, 2024 10:00 AM AMBULATORY - MEDICINE [place] [facility] October 24, 2024 02:00 PM AMBULATORY - MEDICINE [facility] [place] Active, Pending, and Scheduled Orders This section includes a listing of several types of active, pending, and scheduled orders, including clinic medications orders, diagnostic test orders, procedure orders and consult orders; where the start date of the order is 45 days before the date of the Encounter or 45 days after the date of theEncounter. The data comes from all [place] treatment facilities. Test Date/Time Test Type Test Details Facility Name Jun 28, 2024 03:38 PM Consult Order EKG TRACIN G/SPOPC OUTPT Cons Insulating Machine Operator[facility] [place] Advance Directives: All historical and current Section Date Range: From patient's date of to the date document was created. This section includes ALL of a patient's completed or amended [place] Advance and Rescinded Directives. The entries below indicate that a directive exists for the patient, but an actual copy is not included with this document. The data comes from all [place] facilities. Date Advance Directives Provider Source Nov 22, 2022 ADVANCE DIRECTIVE DISCUSSION RAFAELA MANRIQUEZ [facility] Apr 20, 2022 ADVANCE DIRECTIVE SIN WHARTON [facility] IE Encounter Notes: All associated encounter notes This section contains the clinical notes associated to the Encounter. Date/Time Encounter Note(s) Provider Source May 29, 2024 11:21 AM ADDENDUM: LOCAL TITLE: Addendum STANDARD TITLE: ADDENDUM DATE OF NOTE: MAY 29, 2024@11:21:50 ENTRY DATE: MAY 29, 2024@11:21:52 AUTHOR: OSCAR GILL EXP COSIGNER: URGENCY: STATUS: COMPLETED Called and left another message asking for a call back. Has an appointment with Dr. Ortiz on Thursday 05/31 at 11 am, and could also see him that day with advanced notice. /gustabo/ OSCAR GILL Registered Nurse Signed: 05/29/2024 11:24 Receipt Acknowledged By: 05/30/2024 00:47 /gustabo/ FITO ORTIZ MD STAFF PSYCHIATRIST --- Original Document --- 05/24/24 APPOINTMENT NO SHOW: Patient Name: JARROD BROWNING Patient SSN: [id number] Date and time of Appointment No show : 05/24/24 11:00 PATIENT PHONE - PHONE NUMBER [CELLULAR] - Patient's medical record was reviewed. Follow-up actions were determined and initiated: Please check/complete as applies: [X]Telephoned Directly [ ]Re-scheduled for next available appt [ ]Sent a N0-show letter ( must call for appointment) [ ]Other (Emergent/Overbook, etc.): Additional Comments: Please call [phone] to re-schedule. Thanks! Future Clinic Visits 05/31/2024 11:00 CWM/SO/MHC/ORTIZ 07/16/2024 13:30 CWM/SO/PACT 1 BOMBSIGHT SPECIALIST /gustabo/ OSCAR GILL Registered Nurse Signed: 05/24/2024 13:09 Receipt Acknowledged By: 05/24/2024 13:36 /cory YUAN ADVANCED SOCIAL SCIENCES INSTRUCTOR 05/24/2024 ADDENDUM STATUS: COMPLETED appt marked ns and letter sent at this time. /gustabo/ ENRRIQUE YUAN ADVANCED SOCIAL SCIENCES INSTRUCTOR Signed: 05/24/2024 13:36 OSCAR GILL May 24, 2024 01:05 PM CLERICAL NOTE: LOCAL TITLE: APPOINTMENT NO SHOW STANDARD TITLE: CLERICAL NOTE DATE OF NOTE: MAY 24, 2024@13:05 ENTRY DATE: MAY 24, 2024@13:05:57 AUTHOR: OSCAR GILL EXP COSIGNER: URGENCY: STATUS: COMPLETED APPOINTMENT NO SHOW Has ADDENDA Patient Name: JARRDO BROWNING Patient SSN: [id number] Date and time of Appointment No show : 05/24/24 11:00 PATIENT PHONE - PHONE NUMBER [CELLULAR] - Patient's medical record was reviewed. Follow-up actions were determined and initiated: Please check/complete as applies: [X]Telephoned Directly [ ]Re-scheduled for next available appt [ ]Sent a N0-show letter ( must call for appointment) [ ]Other (Emergent/Overbook, etc.): Additional Comments: Please call [phone] to re-schedule. Thanks! Future Clinic Visits 05/31/2024 11:00 CWM/SO/MHC/CLAUD[facility] 07/16/2024 13:30 CWM/SO/PACT 1 BOMBSIGHT SPECIALIST /gustabo/ OSCAR GILL Registered Nurse Signed: 05/24/2024 13:09 Receipt Acknowledged By: 05/24/2024 13:36 /cory YUAN ADVANCED SOCIAL SCIENCES INSTRUCTOR 05/24/2024 ADDENDUM STATUS: COMPLETED appt marked ns and letter sent at this time. /gustabo/ ENRRIQUE YUAN ADVANCED SOCIAL SCIENCES INSTRUCTOR Signed: 05/24/2024 13:36 05/29/2024 ADDENDUM STATUS: COMPLETED Called and left another message asking for a call back. Has an appointment with Dr. Ortiz on Thursday 05/31 at 11 am, and could also see him that day with advanced notice. /gustabo/ OSCAR GILL Registered Nurse Signed: 05/29/2024 11:24 Receipt Acknowledged By: * AWAITING SIGNATURE * FITO ORTIZ,OSCAR CESPEDES
--- OUTSIDE RECORDS SUMMARY | 2024-08-14 17:15 | XMS_ITS | Encounter Summary ---
Author Name [facility] [place] Organization [facility] [place] Address [address] [place] [id number] Care Team Providers Care Elevator Technician Name Role Phone JARROD KOHLER Primary [...] Name Patient's Relationship to Policy [facility] CE ORGANIZAT ION [facility]ALT [facility] Dec 11, 2023 [id number] [phone] NALLELY,LAWRENCE ID PATIENT [facility] CE ORGANIZAT ION FAIRV IEW COMMO NS Nov 24, 2021 [id number] NALLELY,LAWRENCE ID PATIENT [facility] CE ORGANIZAT ION [facility] Sep 11, 2019 [id number] [phone] NALLELY,LAWRENCE ID PATIENT [facility] CE ORGANIZAT ION FAIRV IEW COMMO NS Apr 12, 2012 [id number] [phone] NALLELY,LAWRENCE ID PATIENT OPTUM RX PRESCRIPT ION [facility] PEE May 14, 2024 [facility] [id number] [id number] NALLELY,LAWRENCE ID PATIENT OPTUM RX PRESCRIPT ION HDHP/ HSA Nov 24, 2021 [facility] [id number] [phone] NALLELY,LAWRENCE ID PATIENT OPTUM RX PRESCRIPT ION [facility]ALT [facility] [place] Nov 24, 2021 [facility] [id number] [phone] NALLELY,LAWRENCE ID PATIENT OPTUM RX PRESCRIPT ION [facility] [place] Sep 11, 2019 [facility] [id number] [id number] NALLELY,LAWRENCE ID PATIENT OPTUM RX PRESCRIPT ION [facility]ALT [facility] [place] Aug 17, 2004 NONE [id number] [phone] NALLELY,LAWRENCE ID PATIENT Selected Encounter This section includes the information on record at DC for the Encounter. Date/Time Encounter Type Encounter Description Reason Provider Source Jul 16, 2024 01:30 PM OFFICE O/P EST MOD 30 MIN PRIMARY CARE/MEDICINE ICD-10-CM I10 Essential (primary) hypertension JARROD KOHLER Marilyn Encounter Template Text not used by DC Assessments - Encounter Diagnoses This section includes the primary and secondary diagnoses documented for the Encounter. Date/Time Primary/Secondary Diagnosis Diagnosis Name Provider Source Jul 16, 2024 02:18 PM PRIMARY Essential (primary) hypertension JARROD KOHLER Jul 16, 2024 02:18 PM SECONDARY Alcohol dependence with withdrawal, uncomplicated JARROD KOHLER Jul 16, 2024 02:18 PM SECONDARY Depression, unspecified JARROD KOHLER RUBINA Jul 16, 2024 02:18 PM SECONDARY Migraine with aura, not intractable, w/o status migrainosus JARROD KOHLER RUBINA Jul 16, 2024 02:18 PM SECONDARY Other idiopathic peripheral autonomic neuropathy JARROD KOHLER RUBINA Jul 16, 2024 02:18 PM SECONDARY Post-traumatic stress disorder, unspecified JARROD KOHLER Jul 16, 2024 02:18 PM SECONDARY Thrombocytopenia, unspecified JARROD KOHLER RUBINA Jul 16, 2024 02:18 PM SECONDARY Vitamin D deficiency, unspecified JARROD KOHLER RUBINA Plan of Treatment: Future Appointments (+ 6 months) and Future Tests (+/- 45 days) The Plan of Treatment section includes future care activities for the [facility] This section includes future appointments and future orders which are active, pending or scheduled. Future Appointments This section includes appointments that were scheduled to occur 6 months from the date of the Encounter, up to a maximum of 20 appointments. The data comes from all [facility] facilities. Appointment Date/Time Appointment Type Appointme nt Facility Name Jul 30, 2024 10:00 AM [facility] Jul 30, 2024 10:30 AM [facility] Aug 28, 2024 11:00 AM AMBULATORY - PSYCHIATRY [facility] Sep 12, 2024 10:00 AM [facility]UL[facility]ORY - MEDICINE [place] [facility] [place] October 24, 2024 02:00 PM AMBULATORY - MEDICINE [facility] Active, Pending, and Scheduled Orders This section includes a listing of several types of active, pending, and scheduled orders, including clinic medications orders, diagnostic test orders, procedure orders and consult orders; where the start date of the order is 45 days before the date of the Encounter or 45 days after the date of theEncounter. The data comes from all [facility]. Test Date/Time Test Type Test Details Facility Name Jun 28, 2024 03:38 PM Consult Order EKG TRACIN G/SPOPC OUTPT Cons Tool Repair Technician's Choice [facility] Jul 16, 2024 02:18 PM Consult Order [facility]-COLONOSCOPY SCREENING WITH EGD [facility] Tool Repair Technician's [facility] Lab Results: +/- 30 days of the encounter This section includes the Chemistry and Hematology Lab Results on record with DC for the patient. Radiology Reports and Pathology Reports are provided separately, in subsequent sections. Lab Results This section contains the Chemistry/Hematology Results that were resulted 30 days before or 30 daysafter the date of the Encounter. Date/Time Source Result Type Result - Unit Interpretation Reference Range Comment Jul 16, 2024 01:28 PM [facility] LIVER FUNCTION Specimen Type: SERUM No comment entered. Ordering Provider: RASHAWN LOCO Report Released Date/Time: Jun 28, 2024 12:42 PM Reporting Lab: [address] [address] Performing Lab: [address] [address] PROTEIN,TOTAL 8.6 g/dL H 6.0-8.3 ALBUMIN 3.9 g/dL 3.5-5.0 ALKALINE PHOSPHATASE 98 U/L 40-150 AST 66 U/L H 5-34 ALT 42 U/L BILIRUBIN, TOTAL 0.4 mg/dL 0.2-1.2 Jul 16, 2024 01:28 PM [facility] MAGNESIUM Specimen Type: SERUM No comment entered. Ordering Provider: JARROD KOHLER Report Released Date/Time: Jul 16, 2024 01:10 PM Reporting Lab: [address] [address] Performing Lab: [address] [address] MAGNESIUM 1.4 mg/dL L 1.6-2.6 Jul 16, 2024 01:28 PM [facility] LIPID PANEL, NON FASTING Specimen Type: SERUM No comment entered. Ordering Provider: JARROD KOHLER Report Released Date/Time: Jul 16, 2024 01:10 PM Reporting Lab: [address] [address] Performing Lab: [address] [address] CHOLESTEROL 197 mg/dL TRIGLYCERIDE 79 mg/dL 0-150 LDL calculated 119 mg/dL 0-129 CHOL/HDL 3.2 HDL CHOLESTEROL 62 mg/dL H 40-60 Jul 16, 2024 01:28 PM [facility] BASIC METABOLIC PANEL (non-fasting) Spe cimen Type: SERUM No comment entered. Ordering Provider: JARROD KOHLER Report Released Date/Time: Jul 16, 2024 01:10 PM Reporting Lab: [address] [address] Performing Lab: [address] [address] UREA NITROGEN 7 mg/dL 7-25 GLUCOSE 136 mg/dL H 65-100 SODIUM 138 mmol/L 135-145 POTASSIUM 3.6 mmol/L 3.5-5.0 CHLORIDE 104 mmol/L 100-110 CO2 23 meq/L 20-30 CREATININE, Serum 0.99 mg/dL 0.50-1.40 eGFR(CKD-EPI 2020) 89 mL/min >60 Jul 16, 2024 01:28 PM [facility] CBC Specimen Type: BLOOD No comment entered. Ordering Provider: JARROD KOHLER Report Released Date/Time: Jul 16, 2024 01:10 PM Reporting Lab: [address] [address] Performing Lab: [facility] [address] [facility] [address] WBC 4.47 10*3/uL L 4.50-11.00 RBC 4.95 10*6/uL 4.23-5.66 HGB 12.6 g/dL L 12.8-17 HCT 39.9 39.2-50.4 MCV 80.6 fL L 82-99 MCHC 31.6 g/dL 30.8-35.1 PLT 114 10*3/uL L 140-360 RDW-CV 13.2 12.0-16.0 MCH 25.5 pg L 26.2-32.6 Vital Signs: All taken on the encounter date This section contains inpatient and outpatient Vital Signs collected on the date of the Encounter. Date/Time Temperature Pulse Blood Pressure Respiratory Rate SP02 Pain Height Weight Body Mass Index Source Jul 16, 2024 02:18 PM 97.9 82 186/96 98 183 31 [facility] I[facility] Social History: Smoking Status (Most current) and Tobacco Use (All prior to encounter date) This section includes the most current, and the historical, smoking and tobacco- related health factors from the [place] facility where the Encounter took place. Current Smoking Status This section includes the most current smoking, or tobacco-related health factor, from the [place] facility where the Encounter took place. Date/Time Current Smoking Status Comment Taz ity Jul 16, 2024 01:30 PM DC-TOBACCO NEVER USED CIGARETTES [facility] Tobacco Use History This section includes a history of the smoking, or tobacco-related health factors, that were collected on or before the date of the Encounter. The data comes from the [place] facility where the Encounter took place. Date/Time Smoking Status/Tobacco Use Comment F acility Jul 16, 2024 01:30 PM DC-TOBACCO NEVER USED OTHER TYPE [facility] Advance Directives: All historical and current Section Date Range: From patient's date of to the date document was created. This section includes ALL of a patient's completed or amended VA Advance and Rescinded Directives. The entries below indicate that a directive exists for the patient, but an actual copy is not included with this document. The data comes from all [place] facilities. Date Advance Directives Provider Source Nov 22, 2022 ADVANCE DIRECTIVE DISCUSSION MITRAABBIE MORAEShTiago JAMSHID Townsend [facility] Apr 20, 2022 ADVANCE DIRECTIVE DIOSIN [facility] IE Encounter Notes: All associated encounter notes This section contains the clinical notes associated to the Encounter. Date/Time Encounter Note(s) Provider Source Jul 16, 2024 01:46 PM PRIMARY CARE NURSE PRACTITIONER OUTPATIENT NOTE: LOCAL TITLE: NURSE PRACTITIONER OUTPATIENT NOTE STANDARD TITLE: PRIMARY CARE NURSE PRACTITIONER OUTPATIENT NOTE DATE OF NOTE: JUL 16, 2024@13:46 ENTRY DATE: JUL 16, 2024@13:46:42 AUTHOR: JARROD KOHLER EXP COSIGNER: URGENCY: STATUS: COMPLETED PRIMARY CARE VISIT JARROD MAINOR BROWNING, is a 58 yo DECLINED TO ANSWER MALE who presents at the [facility] Clinic. TYPE OF VISIT: Face to face 58-year-old male with thrombocytopenia, vitamin D deficiency, ED, migraine with aura, PTSD, depression, idiopathic autonomic neuropathy, HTN, and history of severe alcohol abuse in remission x 2 years presented to the outpatient clinic in regular follow-up. He was last seen in primary care by Dr. Nuñez in August. He reports recent pneumonia for which she was treated at [facility] with antibiotic course. He reports near full recovery but still has persistent cough with scant sputum. He has been taking DayQuil, NyQuil, Robitussin, and guaifenesin for symptomatic relief. No fevers, shortness of breath, chest discomfort, or sleep disturbance. Recent labs and diagnostic studies were reviewed with the [place]. Labs are pending from today. All medications were reconciled during this visit. HEALTHCARE PROVIDERS: PCP: JOY MH: JOY, Dr. Mcclain Social Hx: The lives alone. He has never smoked. He stopped drinking alcohol in 2021. He has never used marijuana or any illicit substances. He is unemployed. He walks 1 to 2 miles daily for exercise. 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 HISTORY: PERIOD OF SERVICE - [facility] [employer] FROM Dec TO Jan COMBAT SERVICE INDICATED: No MEDICAL HISTORY Active Problem Vitamin D Deficiency ([facility] [id number]) 09/01/2023 PRUDENCIO NUÑEZ Thrombocytopenia D69.6 09/01/2023 PRUDENCIO NUÑEZ Esophagitis K20.90 07/17/2023 PRUDENCIO NUÑEZ colon cancer screening R69. 07/17/2023 PRUDENCIO NUÑEZ Erectile dysfunction N52.9 07/17/2023 PRUDENCIO NUÑEZ eGD R69. 07/03/2023 YUAN NICHOLS Exposure to potentially hazardous s 03/03/2023 CAMERON GRUBBS Esophageal stricture K22.2 03/03/2023 CAMERON GRUBBS Migraine with Aura ([facility] [id number]) G4 03/03/2023 CAMERON GRUBBS Homeless Z59.00 01/23/2023 BESSIE BROOKE Dysphagia R13.10 02/21/2022 JOS GRIJALVA Depression F32.A 02/18/2022 CECILIO ORONA Posttraumatic stress disorder F43.1 02/18/2022 CECILIO ORONA Hypertension I10. 02/16/2022 JOS GRIJALVA Idiopathic peripheral autonomic beny 02/16/2022 JOS GRIJALVA Severe alcohol dependence F10.230 03/02/2022 VISHAL ERNANDEZ VITAL SIGNS: Temperature 97.8 F [36.6 C] (06/28/2024 12:45) Blood Pressure 201/117 (06/28/2024 12:54) Pulse 85 (06/28/2024 12:54) Respiration 16 (06/28/2024 12:54) Pain 3 (06/28/2024 12:54) BMI BMI: 32.5 Weight 195 lb [88.45 kg] (04/25/2024 13:36) Pulse Oximetry 96% (06/28/2024 12:54) ASSISTIVE DEVICES: REVIEW OF SYSTEMS: CONSTITUTIONAL: No fevers, chills, weight loss/gain ENT: No sore throat, sneezing, congestion, rhinorrhea, anosmia, or ageusia. CARDIOVASCULAR: No chest pain, palpitations, or increased pedal edema RESPIRATORY: No SOB, cough, sputum, wheeze. GASTROINTESTINAL: Denies abd pain, N/V/D. No melena or hematochezia. No tenesmus or constipation. GENITOURINARY: No burning micturition. No urinary frequency or urgency. No nocturia. MUSCULOSKELETAL: No myalgias or arthralgias. PSYCHIATRIC: No new anxiety or depression. No sleep disturbance. NEUROLOGIC: No headaches, dizziness, numbness or tingling in the extremities, or unilateral weakness. EXAMINATION General: Well-appearing in no obvious distress. Mental Status: Alert and oriented x4. Head: Normocephalic. Eyes: PERRLA. EOMI. Anicteric sclerae. ENT: Moist oral mucosa. Posterior pharynx unremarkable Neck: Supple. No JVD. No LAD. No bruit. Lungs: CTA. Normal chest excursion. Eupneic respirations. CV: Heart tones S1, S2. RRR. No M/G/R. No peripheral edema GI: Abdomen is soft and nontender. No palpable mass. : No CVA tenderness. Ext: No cyanosis or clubbing. No gross deformities. Neuro: CN II through XII grossly intact. Normal speech. Normal gait. Integument: Skin warm and dry. No rashes or lesions on visible areas. Psych: Normal mood and affect. Normal judgment. ALLERGIES: ========= CATS >> HEALTH MAINTENANCE PREVENTIVE MEDICINE GOALS Info Only: [facility] Video Connect Capable DUE NOW Advance Directive Screen AD Jul 17 BMI>30/>24.99 High Risk Mar ,25 Homelessness/Food Insecurity Screen Jan 19 Colonoscopy GAP Reminder DUE NOW Home Telehealth ([facility]) Referral DUE NOW Mental Health Treatment Plan DUE NOW Tobacco Use Screening Jan 19 Influenza Immunization DUE NOW Medication Reconciliation DUE NOW COVID-19 Immunization DUE NOW HTN Assess for Elevated BP>=140/90 DUE NOW Herpes Zoster (Shingles) Vaccine DUE NOW Hepatitis A Vaccine DUE NOW Sexual Orientation Jun 01 (Optional) Whole Health Documentation DUE NOW ASSESSMENT/PLAN: Active problems - Computerized Problem List is the source for the following: Vitamin D Deficiency ([facility] [id number]): Started on weekly vitamin D dosing in August 2023. Check vitamin D level today. Thrombocytopenia: Likely related to platelet dysfunction in the face of chronic alcohol abuse. Platelets were 100 10K in July 2023. Recheck CBC/differential today. Migraine with Aura ([facility] [id number]): No migraines in at least 6 months. He is triptan na??ve. On no preventative magnesium or riboflavin. Hypertension: Multifactorial hypertension. Blood pressure well above target today at 186/96 on several measurements. He states that blood pressures have been ranging in the 1 60-180 range at home as well. Lisinopril was increased from 10 to 20 mg in August with little effect. It has has been been increased over time to now 40 mg daily. He endorses taking as prescribed. No chest pain, headaches, visual disturbance, nausea. I suspect some component of today's BP elevation is related to multiple cold medicines that he is taking. However, after some discussion, he agrees to a trial of metoprolol 25 mg twice daily in addition to continuing lisinopril 40 mg. He will RTC in 2 weeks for a nursing visit for BP log check and BP check. He may continue as needed clonidine for anxiety. Idiopathic peripheral autonomic neuropathy: Reports good results from gabapentin 300 mg daily. Continue. Depression: Posttraumatic stress disorder: Severe alcohol dependence: Following closely with the [place] mental health. He stopped drinking in 2021. Maintained on naltrexone. LFTs have remained normal. Continues with as needed clonidine. FOLLOW UP: RTC Below & sooner PRN UPCOMING APPOINTMENTS: 08/28/2024 11:00 CWM/SO/MHC/LOCO 30 minutes spent in patient evaluation, data review, and patient education. All medications were reconciled during this visit. No barriers; Patient understands and agrees to current treatment plan. If pt has any questions, concerns, or changes in current health status he/she will call or come in to the [facility]. Colonoscopy GAP Reminder: Recommendations are needed in the clinical reminder system following the patient's most recent colorectal cancer screening/surveillance test (Colonoscopy, Sigmoidoscopy or CT Colonography) Colonoscopy reminder set 3 months from JUL 16, 2024. Colonoscopy consult has been ordered. See orders tab for details. BMI>30/>24.99 High Risk: At this visit, the health risks of obesity were reviewed and discussed with the , and the benefits of a weight management treatment program, such as [facility] was discussed and offered to the [place]. After discussing the health risks of being overweight or obese and providing information about available weight management treatment, and offering a referral to [facility] or another weight management treatment program outside the [facility], the patient DECLINES REFERRAL to [facility] or any other weight management treatment program at this time. Tobacco Use Screening: The patient has never smoked cigarettes. The patient has never used other types of tobacco. Medication Reconciliation: Outpatient: Has the patient been taking medications as documented in the EMLR? YES: The patient has been taking medications as documented in the EMLR. Essential Medication List for Review used to complete this medication reconciliation. INCLUDED IN THIS LIST: Alphabetical list of active outpatient prescriptions dispensed from this DC (local) and dispensed from another VA or [facility]D facility (remote) as well as inpatient orders [...] whether with a VA or non-VA provider. HTN Assess for Elevated BP>=140/90: The patient's medication regimen was adjusted to improve blood pressure control. Comment: See note /gustabo/ JARROD KOHLER NP NURSE PRACTITIONER Signed: 07/16/2024 14:17 JARROD KOHLER
--- OUTSIDE RECORDS SUMMARY | 2024-08-14 17:15 | XMS_ITS | Encounter Summary ---
Author Name [facility] [place] Address [address] [place] [id number] Care Team Providers Care Production Consultant Name Role Phone JARROD KOHLER Primary [...] Christianson's Name Patient's Relationship to Policy Christianson [facility] CE ORGANIZAT ION HEALT H [facility] Dec 11, 2023 [id number] [phone] NALLELY,LAWRENCE ID PATIENT [facility] CE ORGANIZAT ION FAIRV IEW COMMO NS Nov 24, 2021 [id number] NALLELY,LAWRENCE ID PATIENT [facility] CE ORGANIZAT ION [facility] Sep 11, 2019 [id number] NALLELY,LAWRENCE ID PATIENT [facility] CE ORGANIZAT ION FAIRV IEW COMMO NS Apr 12, 2012 [id number] NALLELY,LAWRENCE ID PATIENT OPTUM RX PRESCRIPT ION [facility] PEE May 14, 2024 [facility] [id number] NALLELY,LAWRENCE ID PATIENT OPTUM RX PRESCRIPT ION HDHP/ HSA Nov 24, 2021 [facility] [id number] NALLELY,LAWRENCE ID PATIENT OPTUM RX PRESCRIPT ION HEALT H [place] Nov 24, 2021 [facility] [id number] NALLELY,LAWRENCE ID PATIENT OPTUM RX PRESCRIPT ION HEALT H [place] Sep 11, 2019 [facility] [id number] NALLELY,LAWRENCE ID PATIENT OPTUM RX PRESCRIPT ION HEALT H [place] Aug 17, 2004 NONE [id number] NALLELY,LAWRENCE ID PATIENT Selected Encounter This section includes the information on record at [place] for the Encounter. Date/Time Encounter Type Encounter Description Reason Provider Source Nov 28, 2023 11:00 AM PT EDUCATION NOC INDIVID PRIMARY CARE/MEDICINE ICD-10-CM H61.21 Impacted cerumen, right ear GUADALUPE RICHARD [facility] Encounter Template Text not used by [place] Assessments - Encounter Diagnoses This section includes the primary and secondary diagnoses documented for the Encounter. Date/Time Primary/Secondary Diagnosis Diagnosis Name Provider Source Nov 28, 2023 01:28 PM PRIMARY Impacted cerumen, right ear GUADALUPE RICHARD [facility] Plan of Treatment: Future Appointments (+ 6 months) and Future Tests (+/- 45 days) The Plan of Treatment section includes future care activities for the patient from all [place] treatmentfacilities. This section includes future appointments and future orders which are active, pending or scheduled. Future Appointments This section includes appointments that were scheduled to occur 6 months from the date of the Encounter, up to a maximum of 20 appointments. The data comes from all [place] treatment facilities. Appointment Date/Time Appointment Type Appointme nt Facility Name 2023 08:30 AM [facility] Jan 30, 2024 01:00 PM [facility] Feb 29, 2024 10:00 AM [facility] Mar 01, 2024 09:30 AM AMBULAT[facility] - [facility]ATRY [facility] Mar 28, 2024 11:00 AM [facility] Apr 25, 2024 01:00 PM AMBULATORY - PS[facility]CHIATRY [facility] May 24, 2024 11:00 AM AMBULATORY PS[facility]CHIATRY [facility] Active, Pending, and Scheduled Orders This section includes a listing of several types of active, pending, and scheduled orders, including clinic medications orders, diagnostic test orders, procedure orders and consult orders; where the start date of the order is 45 days before the date of the Encounter or 45 days after the date of theEncounter. The data comes from all [place] treatment facilities. Test Date/Time Test Type Test Details Facility Name November 06, 2023 12:00 AM Laboratory - Chemi stry Order VITAMIN D (25-OH) BLOOD (SST-SERUM) [facility] Vital Signs: All taken on the encounter date This section contains inpatient and outpatient Vital Signs collected on the date of the Encounter. Date/Time Temperature Pulse Blood Pressure Respiratory Rate SP02 Pain Height Weight Body Mass Index Source Nov 28, 2023 11:24 AM 98 79 114/78 15 95 0 [facility] IE Advance Directives: All historical and current Section Date Range: From patient's date of to the date document was created. This section includes ALL of a patient's completed or amended [place] Advance and Rescinded Directives. The entries below indicate that a directive exists for the patient, but an actual copy is not included with this document. The data comes from all [place] facilities. Date Advance Directives Provider Source Nov 22, 2022 ADVANCE DIRECTIVE DISCUSSION RAFAELA MANRIQUEZ [facility] Apr 20, 2022 ADVANCE DIRECTIVE ISN WHARTON [facility] Encounter Notes: All associated encounter notes This section contains the clinical notes associated to the Encounter. Date/Time Encounter Note(s) Provider Source Nov 28, 2023 11:25 AM PRIMARY CARE NOTE: LOCAL TITLE: WALK-IN NOTE PRIMARY CARE (T) STANDARD TITLE: PRIMARY CARE NOTE DATE OF NOTE: NOV 28, 2023@11:25 ENTRY DATE: NOV 28, 2023@11:25:47 AUTHOR: GUADALUPE RICHARD COSIGNER: URGENCY: STATUS: COMPLETED Data: 57year old MALE [place] reports to Primary Care clinic for Walk-In visit. 's PCP is JARROD KOHLER Vet walks in to clinic with complaint of needing ear irrigated. Last recorded Vital Signs are: Temperature:98 F [36.7 C] (11/28/2023 11:24) Pulse:79 (11/28/2023 11:24) Blood Pressure:114/78 (11/28/2023 11:24) Respiration:15 (11/28/2023 11:24) Pain:0 (11/28/2023 11:24) Vet reports current allergies are: Remote Allergy Data No Remote Allergy/ADR Data available for this patient Current Medications from Active Med list include: Active Outpatient Medications (including Supplies): Active Outpatient Medications Status = 1) CARBAMIDE PEROXIDE 6.5% OTIC SOLN INSTILL 5 DROPS ACTIVE INTO THE RIGHT EAR TWICE DAILY FOR EAR WAX BLOCKAGE 2) CHOLECALCIF 1,250MCG (D3-50,000UNIT) CAP TAKE ONE ACTIVE CAPSULE BY MOUTH WEEKLY FOR VITAMIN D DEFICIENCY 3) CLONIDINE HCL 0.1MG TAB TAKE ONE TABLET BY MOUTH ACTIVE THREE TIMES A DAY TO CONTROL BLOOD PRESSURE 4) FOLIC ACID 1MG TAB TAKE ONE TABLET BY MOUTH ONCE ACTIVE DAILY VITAMIN/NUTRITION SUPPLEMENT 5) GABAPENTIN 300MG CAP TAKE ONE CAPSULE BY MOUTH ONCE ACTIVE DAILY 6) LISINOPRIL 20MG TAB TAKE ONE TABLET BY MOUTH ONCE ACTIVE DAILY TO CONTROL BLOOD PRESSURE 7) MELATONIN 3MG CAP/TAB TAKE TWO CAPSULE/TABLET BY ACTIVE MOUTH AT BEDTIME 8) NALTREXONE(EQV-VIVITROL)380MG/NAVEED SA INJ INJECT 1 ACTIVE VIAL (380MG) INTRAMUSCULARLY EVERY FOUR WEEKS FOR ALCOHOLISM 9) NAPROXEN 500MG TAB TAKE ONE TABLET BY MOUTH TWICE ACTIVE DAILY NEEDED TAKE WITH FOOD; FOR PAIN/INFLAMMATION/SWELLING 10) SERTRALINE HCL 100MG TAB TAKE ONE TABLET BY MOUTH ACTIVE EVERY MORNING FOR POSTTRAUMATIC STRESS SYNDROME 11) SILDENAFIL CITRATE 50MG TAB TAKE ONE TABLET BY MOUTH ACTIVE EVERY 24 HOURS NEEDED FOR ERECTILE DYSFUNCTION TAKE 1 HOUR PRIOR TO SEXUAL ACTIVITY 12) THIAMINE 100MG TAB TAKE TWO TABLETS BY MOUTH ONCE ACTIVE DAILY FOR VITAMIN SUPPLEMENTATION 13) TRAZODONE HCL 50MG TAB TAKE ONE TABLET BY MOUTH AT ACTIVE BEDTIME NEEDED FOR INSOMNIA ASSOCIATED WITH DEPRESSION Active Non-VA Medications Status = 1) Non-VA CAPSAICIN 0.025% CREAM SMALL AMOUNT TOPICALLY ACTIVE THREE TIMES A DAY 2) Non-VA LIDOCAINE 5% PATCH 1 PATCH TOPICALLY ONCE ACTIVE DAILY 3) Non-VA OMEPRAZOLE 20MG EC CAP 20MG BY MOUTH TWICE ACTIVE DAILY 16 Total Medications Action: seen in sick call 11/24/23 for ear blockage' Reports completing ear drops. right ear irrigated with mod amount of yellow cerumen return Reports ear feels better TM visible, no cerumen noted. RTC as needed. Reminders Info Only: VA Video Connect Capable DUE NOW Colonoscopy GAP Reminder DUE NOW Home Telehealth (CCHT) Referral DUE NOW Mental Health Treatment Plan DUE NOW Medication Reconciliation DUE NOW Herpes Zoster (Shingles) Vaccine DUE NOW Hepatitis A Vaccine for High Risk DUE NOW (Optional) Whole Health Documentation DUE NOW Unable to complete clinical reminders due to time constraints /gustabo/ GUADALUPE RICHARD RN PRIMARY CARE RN Signed: 11/28/2023 13:28 GUADALUPE RICHARD [facility]
--- OUTSIDE RECORDS SUMMARY | 2024-08-14 17:15 | XMS_ITS | Encounter Summary ---
Author Name [facility] of [place] Organization [place] of [place] Address [address] [place] [address] Care Team Providers Care Counseling Center Director Name Role Phone JARROD KOHLER Primary Care [...] Christianson's Name Patient's Relationship to Policy Christianson [facility] CE ORGANIZAT ION HEALT H [facility] Dec 11, 2023 [id number] [phone] NALLELY,LAWRENCE ID PATIENT [facility] CE ORGANIZAT ION FAIRV IEW COMMO NS Nov 24, 2021 [id number] NALLELY,LAWRENCE ID PATIENT [facility] CE ORGANIZAT ION [facility] Sep 11, 2019 [id number] [id number] NALLELY,LAWRENCE ID PATIENT [facility] CE ORGANIZAT ION FAIRV IEW COMMO NS Apr 12, 2012 [id number] [phone] NALLELY,LAWRENCE ID PATIENT OPTUM RX PRESCRIPT ION [facility] PEE May 14, 2024 [facility] [id number] NALLELY,LAWRENCE ID PATIENT OPTUM RX PRESCRIPT ION HDHP/ HSA Nov 24, 2021 [facility] [id number] NALLELY,LAWRENCE ID PATIENT OPTUM RX PRESCRIPT ION HEALT H [place] Nov 24, 2021 [facility] [id number] [phone] NALLELY,LAWRENCE ID PATIENT OPTUM RX PRESCRIPT ION [facility]ALT H [facility] Sep 11, 2019 [facility] [id number] [phone] NALLELY,LAWRENCE ID PATIENT OPTUM RX PRESCRIPT ION HEALT H [place] Aug 17, 2004 NONE [id number] NALLELY,LAWRENCE ID PATIENT Selected Encounter This section includes the information on record at [place] for the Encounter. Date/Time Encounter Type Encounter Description Reason Pro vider Source Sep 11, 2023 10:30 AM Outpatient Encounter PRIMARY CARE/MEDICINE I[facility] Encounter Template Text not used by ID Plan of Treatment: Future Appointments (+ 6 months) and Future Tests (+/- 45 days) The Plan of Treatment section includes future care activities for the patient from all [place] treatmentfacilities. This section includes future appointments and future orders which are active, pending or scheduled. Future Appointments This section includes appointments that were scheduled to occur 6 months from the date of the Encounter, up to a maximum of 20 appointments. The data comes from all [place] treatment facilities. Appointment Date/Time Appointment Type Appointme nt Facility Name October 24, 2023 10:00 AM [facility] October 24, 2023 11:00 AM AM[facility]ULAT[facility] - PS[facility]ATRY [facility] Nov 24, 2023 11:00 AM [facility] Nov 24, 2023 11:45 AM [facility] Nov 24, 2023 12:00 PM [facility] - [facility]ICINE [facility] Nov 28, 2023 11:00 AM [facility] - [facility] 2023 08:30 AM [facility] Jan 30, 2024 01:00 PM [facility] Feb 29, 2024 10:00 AM [facility] Mar 01, 2024 09:30 AM AMBULATORY - PS[facility]CHIATRY [facility] Advance Directives: All historical and current Section Date Range: From patient's date of to the date document was created. This section includes ALL of a patient's completed or amended [place] Advance and Rescinded Directives. The entries below indicate that a directive exists for the patient, but an actual copy is not included with this document. The data comes from all [place] facilities. Date Advance Directives Provider Source Nov 22, 2022 ADVANCE DIRECTIVE DISCUSSION RAFAELA MANRIQUEZ [facility] Apr 20, 2022 ADVANCE DIRECTIVE SNI WHARTON [facility] IE Encounter Notes: All associated encounter notes This section contains the clinical notes associated to the Encounter. Date/Time Encounter Note(s) Provider Source Sep 11, 2023 11:52 AM CLERICAL NOTE: LOCAL TITLE: APPOINTMENT NO SHOW STANDARD TITLE: CLERICAL NOTE DATE OF NOTE: SEP 11, 2023@11:52 ENTRY DATE: SEP 11, 2023@11:52:03 AUTHOR: DEMETRIUS PATTON EXP COSIGNER: URGENCY: STATUS: COMPLETED Patient Name: JARROD BROWNING Patient SSN: [id number] Date and time of Appointment No show : 09/11/23 10:30 PATIENT PHONE - PHONE NUMBER [CELLULAR] - Patient's medical record was reviewed. Follow-up actions were determined and initiated: Please check/complete as applies: [X]Telephoned Directly [ ]Re-scheduled for next available appt [X]Sent a N0-show letter ( must call for appointment) [ ]Other (Emergent/Overbook, etc.): Additional Comments: Future Clinic Visits 09/29/2023 11:00 CWM/SO/MHC/LOCO 10/11/2023 11:00 CWM/SO/MHC/GILL 12/08/2023 10:00 CWM/SO/PACT 2 /es/ DEMETRIUS PATTON AMSA Signed: 09/11/2023 11:52 DEMETRIUS PATTON Sep 05, 2023 09:32 AM ADMINISTRATIVE NOT E: LOCAL TITLE: ADMINISTRATIVE NOTE STANDARD TITLE: ADMINISTRATIVE NOTE DATE OF NOTE: SEP 05, 2023@09:32 ENTRY DATE: SEP 05, 2023@09:32:43 AUTHOR: DEMETRIUS PATTON EXP COSIGNER: URGENCY: STATUS: COMPLETED [facility] [address] [place] [phone] * JARROD MARQUISRY [address] [place] [id number] Date: SEP 05, 2023 re: This is a reminder of your upcoming PCP appt with PRUDENCIO NUÑEZ. Appointment Date: Sep@10:30 Appointment Type: In-person visit Fasting blood work NON fasting blood work LEFT MESSAGE ON VOICEMAIL Sincerely, Office Staff for: PRUDENCIO NUÑEZ Primary Care Provider [facility] [address] [address] T [phone] Upcoming Appointments: 09/11/2023 10:30 CWM/SO/PACT 2 09/11/2023 11:00 CWM/SO/MHC/GILL 09/29/2023 11:00 CWM/SO/MHC/LOCO 12/08/2023 10:00 CWM/SO/PACT 2 APPOINTMENT ABBREVIATION MIMS (SPOPC OR SO = [address]) (GOPC OR GO = [address]) (NHM or NO = [facility]) (VVC - Video Call) (Tel-X Telephone Visit) (TH - Telehealth) /gustabo/ DEMETRIUS ROBERTS Signed: 09/05/2023 09:33 DEMETRIUS PATTON PRIDDY
--- OUTSIDE RECORDS SUMMARY | 2024-08-14 17:15 | XMS_ITS | Encounter Summary ---
Author Name [facility] [place] [facility] [place] [address] [place] [id number] Care Team Providers Care Gasoline Truck Operator Name Role Phone JARROD KOHLER Primary [...] Patient's Relationship to Policy Christianson [facility] CE ORGANIZAT ION HEALT H [facility] Dec 11, 2023 [id number] [phone] NALLELY,LAWRENCE ID PATIENT [facility] CE ORGANIZAT ION FAIRV IEW COMMO NS Nov 24, 2021 [id number] [phone] NALLELY,LAWRENCE ID PATIENT [facility] CE ORGANIZAT ION [facility] Sep 11, 2019 [id number] [phone] NALLELY,LAWRENCE ID PATIENT [facility] CE ORGANIZAT ION FAIRV IEW COMMO NS Apr 12, 2012 [id number] [phone] NALLELY,LAWRENCE ID PATIENT [facility] RX PRESCRIPT ION [facility] PEE May 14, 2024 [facility] [id number] NALLELY,LAWRENCE ID PATIENT [employer] RX PRESCRIPT ION HDHP/ HSA Nov 24, 2021 [facility] [id number] [phone] NALLELY,LAWRENCE ID PATIENT [facility] RX PRESCRIPT ION HEALT H [place] Nov 24, 2021 [facility] [id number] [phone] NALLELY,LAWRENCE ID PATIENT [facility] RX PRESCRIPT ION HEALT H [place] Sep 11, 2019 [facility] [id number] [phone] NALLELY,LAWRENCE ID PATIENT [facility] RX PRESCRIPT ION HEALT H [place] Aug 17, 2004 NONE [id number] NALLELY,LAWRENCE ID PATIENT Selected Encounter This section includes the information on [place] at [place] for the Encounter. Date/Time Encounter Type Encounter Description Reason Provider Source October 24, 2023 11:00 AM OFFICE O/P EST MOD 30 MIN [facility] - IND ICD-10-CM F43.10 Post-traumatic stress disorder, unspecified ANDRIA LOCO Marilyn Encounter Template Text not used by [place] Assessments - Encounter Diagnoses This section includes the primary and secondary diagnoses documented for the Encounter. Date/Time Primary/Secondary Diagnosis Diagnosis Name Provider Source October 24, 2023 01:21 PM PRIMARY Post-traumatic stress disorder, unspecified FITO LOCO Plan of Treatment: Future Appointments (+ 6 months) and Future Tests (+/- 45 days) The Plan of Treatment section includes future care activities for the patient from all [place] treatmentfacilities. This section includes future appointments and future orders which are active, pending or scheduled. Future Appointments This section includes appointments that were scheduled to occur 6 months from the date of the Encounter, up to a maximum of 20 appointments. The data comes from all [place] treatment facilities. Appointment Date/Time Appointment Type Appointme nt Facility Name Nov 24, 2023 11:00 AM AMBULATORY - PSYCHIATRY [facility] Nov 24, 2023 11:45 AM AM[facility]ULATORY - MEDICINE [facility] Nov 24, 2023 12:00 PM [facility]ORY - [facility] Nov 28, 2023 11:00 AM AM[facility]ULATORY - [facility]INE [facility] 2023 08:30 AM AMBULATORY PSYCHIATRY [facility] Jan 30, 2024 01:00 PM [facility] Feb 29, 2024 10:00 AM [facility] Mar 01, 2024 09:30 AM AMBULATORY - PSYCHIATRY [facility] Mar 28, 2024 11:00 AM [facility] Apr 25, 2024 01:00 PM AMBULATORY - PSYCHIATRY [facility] Active, Pending, and Scheduled Orders This section includes a listing of several types of active, pending, and scheduled orders, including clinic medications orders, diagnostic test orders, procedure orders and consult orders; where the start date of the order is 45 days before the date of the Encounter or 45 days after the date of theEncounter. The data comes from all [place] treatment facilities. Test Date/Time Test Type Test Details Facility Name November 06, 2023 12:00 AM Laboratory - Chemi stry Order VITAMIN D (25-[place]) BLOOD (SST-SERUM) [facility] Advance Directives: All historical and current Section Date Range: From patient's date of to the date document was created. This section includes ALL of a patient's completed or amended [place] Advance and Rescinded Directives. The entries below indicate that a directive exists for the patient, but an actual copy is not included with this document. The data comes from all [place] facilities. Date Advance Directives Provider Source Nov 22, 2022 ADVANCE DIRECTIVE DISCUSSION [facility] Apr 20, 2022 ADVANCE DIRECTIVE [facility] [place] [facility] Encounter Notes: All associated encounter notes This section contains the clinical notes associated to the Encounter. Date/Time Encounter Note(s) Provider Source October 24, 2023 11:06 AM PSYCHIATRY NOTE: LOCAL TITLE: PSYCHIATRY NOTE STANDARD TITLE: PSYCHIATRY NOTE DATE OF NOTE: OCTOBER 24, 2023@11:06 ENTRY DATE: OCTOBER 24, 2023@11:06:41 AUTHOR: FITO LOCO EXP COSIGNER: URGENCY: STATUS: COMPLETED 30 minutes for encounter, including chart review, interview, charting chart reviewed s/p 3 mo [facility] residential program for alcohol and ptsd and then 2 mo at [facility] residential program[place] 01[place]01; 01/2023 at [facility] in [facility] ; now in own apt See my 05/18/2022 note for more history Pt remains stable. Again, feels good overall. Denies depression. PTSD sx's improved, managable. Affect brightens appropriately. Denies h/o psychotic sx's. Well organized thoughts. No PI or delusions presented. Speech normal. Cogn exam grossly intact. Denies SI and violent ideation. Good self care. No slowing. Has interests -- stays busy , likes playing hockey. Again, reports current psych meds help significantly, see below. He wants to keep the same. Denies side effects w current medications, except posssibly sexual s/e's, wh are managable (has viagra). Denies next-day sedation with medications. 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 Vitamin D Deficiency (SCT 53104052) 2. Thrombocytopenia 3. Esophagitis 4. colon cancer screening 5. Erectile dysfunction 6. eGD 7. Exposure to potentially hazardous substance 8. Esophageal stricture 9. Migraine with Aura (SCT [id number]) 10. Homeless 11. Dysphagia 12. Depression 13. [...] ACTIVE DAILY TO CONTROL BLOOD PRESSURE 6) MELATONIN 3MG CAP/TAB TAKE TWO CAPSULE/TABLET BY ACTIVE MOUTH AT BEDTIME 7) NALTREXONE(EQV-VIVITROL)380MG/NAVEED SA INJ INJECT 1 HOLD VIAL (380MG) INTRAMUSCULARLY EVERY FOUR WEEKS FOR ALCOHOLISM 8) NAPROXEN 500MG TAB TAKE ONE TABLET BY MOUTH TWICE ACTIVE DAILY NEEDED TAKE WITH FOOD; FOR PAIN/INFLAMMATION/SWELLING 9) SERTRALINE HCL 100MG TAB TAKE ONE TABLET BY MOUTH ACTIVE EVERY MORNING FOR POSTTRAUMATIC STRESS SYNDROME 10) SILDENAFIL CITRATE 50MG TAB TAKE ONE TABLET BY MOUTH ACTIVE EVERY 24 HOURS NEEDED FOR ERECTILE DYSFUNCTION TAKE 1 HOUR PRIOR TO SEXUAL ACTIVITY 11) THIAMINE 100MG TAB TAKE TWO TABLETS BY MOUTH ONCE ACTIVE DAILY FOR VITAMIN SUPPLEMENTATION 12) TRAZODONE HCL 50MG TAB TAKE ONE TABLET BY MOUTH AT ACTIVE BEDTIME NEEDED FOR INSOMNIA ASSOCIATED WITH DEPRESSION Active Non-VA Medications Status ======= 1) Non-VA CAPSAICIN 0.025% CREAM SMALL AMOUNT TOPICALLY ACTIVE THREE TIMES A DAY 2) Non-VA LIDOCAINE 5% PATCH 1 PATCH TOPICALLY ONCE ACTIVE DAILY 3) Non-VA OMEPRAZOLE 20MG EC CAP 20MG BY MOUTH TWICE ACTIVE DAILY 15 Total Medications PSYCHIATRIC MEDICATION HISTORY: zoloft Trazodone for sleep Melatonin Campral Denies other psychiatric meds history IMPRESSION: DSM-5 PTSD, chronic --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 See C-SSRS below The pt is probably low risk for suicide or violence -- the patient denied suicidal and violent ideation, but the [facility] information and number were given to patient as a precaution. The patient also understands to call 911 or to go to ER in the event of an emergency. encourage to [facility] , pt understands OBI/recovery grp [...] tolerated well so far. LFTs wnl 07/2023 The side affect profile of naltrexone was [...] the patient to return to clinic in 4 months for medication check . I encouraged the patient tocall or to come to open access sooner if needed. pt to f/u w primary care re medical f/u Depression Screening: Perform PHQ-2 A PHQ-2 screen was performed. The score was 0 which is a negative screen for depression. Over the past two weeks, how often have you been bothered by the following problems? 1. Little interest or pleasure in doing things Not at all 2. Feeling down, depressed, or hopeless Not at all Medication Reconciliation: Outpatient: Has the patient been taking medications as documented in the EMLR? YES: The patient has been taking medications as documented in the EMLR. Essential Medication List for Review used to complete this medication reconciliation. Suicide Screen: C-SSRS Screening [place]-Suicide Severity Rating Scale (C-SSRS Screener) 1. Over the past month, have you wished you were or wished you could go to sleep and not wake up? No 2. Over the past month, have you had any actual thoughts of killing yourself? No 3. Over the past month, have you been thinking about how you might do this? Response not required due to responses to other questions. 4. Over the past month, have you had these thoughts and had some intention of acting on them? Response not required due to responses to other questions. 5. Over the past month, have you started to work out or worked out the details of how to kill yourself? Response not required due to responses to other questions. 6. If yes, at any time in the past month did you intend to carry out this plan? Response not required due to responses to other questions. 7. In your lifetime, have you ever done anything, started to do anything, or prepared to do anything to end your life (for example, collected pills, obtained a gun, gave away valuables, went to the roof but didn't jump)? No 8. If YES, was this within the past 3 months? Response not required due to responses to other questions. /gustabo/ FITO LOCO MD STAFF PSYCHIATRIST Signed: 10/24/2023 13:21 FTIO LOCO
--- OUTSIDE RECORDS SUMMARY | 2024-08-14 17:15 | XMS_ITS | Encounter Summary ---
Author Name [facility] [place] [facility] [place] Address [address] [place] [id number] Care Team Providers Care Building Performance Specialist Name Role Phone JOSE F JARROD Primary [...] Name Patient's Relationship to Policy Christianson [facility] CE ORGANIZAT ION [facility] Dec 11, 2023 [id number] NALLELY,LAWRENCE ID PATIENT [facility] CE ORGANIZAT ION [facility] Nov 24, 2021 [id number] NALLELY,LAWRENCE ID PATIENT [facility] CE ORGANIZAT ION [facility] Sep 11, 2019 [id number] NALLELY,LAWRENCE ID PATIENT [facility] CE ORGANIZAT ION FAIRV IEW COMMO NS Apr 12, 2012 [id number] NALLELY,LAWRENCE ID PATIENT OPT[facility] RX PRESCRIPT ION [facility] PEE May 14, 2024 [facility] [id number] NALLELY,LAWRENCE ID PATIENT OPTUM RX PRESCRIPT ION HDHP/ HSA Nov 24, 2021 [facility] [id number] NALLELY,LAWRENCE ID PATIENT OPT[facility] RX PRESCRIPT ION [facility] [place] Nov 24, 2021 [facility] [id number] [phone] NALLELY,LAWRENCE ID PATIENT OPTUM RX PRESCRIPT ION [facility] [place] Sep 11, 2019 [facility] [id number] NALLELY,LAWRENCE ID PATIENT OPTUM RX PRESCRIPT ION [facility] [place] Aug 17, 2004 NONE [id number] NALLELY,LAWRENCE ID PATIENT Selected Encounter This section includes the information on record at [place] for the Encounter. Date/Time Encounter Type Encounter Description Reason Provider Source 2023 08:30 AM [facility] - IND ICD-10-CM F10.230 Alcohol dependence with withdrawal, uncomplicated OSCAR GILL Marilyn Encounter Template Text not used by [place] Assessments - Encounter Diagnoses This section includes the primary and secondary diagnoses documented for the Encounter. Date/Time Primary/Secondary Diagnosis Diagnosis Name Provider Source 2023 09:21 AM PRIMARY Alcohol dependence with withdrawal, uncomplicated OSCAR GILL [place] Plan of Treatment: Future Appointments (+ 6 months) and Future Tests (+/- 45 days) The Plan of Treatment section includes future care activities for the patient from all [place] treatmentfacilities. This section includes future appointments and future orders which are active, pending or scheduled. Future Appointments This section includes appointments that were scheduled to occur 6 months from the date of the Encounter, up to a maximum of 20 appointments. The data comes from all [place] treatment facilities. Appointment Date/Time Appointment Type Appointme nt Facility Name Jan 30, 2024 01:00 PM AMBULATORY - PSYCHIATRY [facility] Feb 29, 2024 10:00 AM AMBULATORY - PSYCHIATRY [facility] Mar 01, 2024 09:30 AM AMBULATORY - PSYCHIATRY [facility] Mar 28, 2024 11:00 AM AMBULATORY PSYCHIATRY [facility] Apr 25, 2024 01:00 PM AMBULATORY - PSYCHIATRY [facility] May 24, 2024 11:00 AM [facility] Jun 11, 2024 09:30 AM AMBULATORY - PSYCHIATRY [facility] Advance Directives: All historical and current Section Date Range: From patient's date of to the date document was created. This section includes ALL of a patient's completed or amended [place] Advance and Rescinded Directives. The entries below indicate that a directive exists for the patient, but an actual copy is not included with this document. The data comes from all [place] facilities. Date Advance Directives Provider Source Nov 22, 2022 ADVANCE DIRECTIVE DISCUSSION RAFAELA MANRIQUEZ [facility] Apr 20, 2022 ADVANCE DIRECTIVE DIOSIN ANANYA [facility] Encounter Notes: All associated encounter notes This section contains the clinical notes associated to the Encounter. Date/Time Encounter Note(s) Provider Source Jan 25, 2024 09:15 AM ADDENDUM: LOCAL TITLE: Addendum STANDARD TITLE: ADDENDUM DATE OF NOTE: JAN 25, 2024@09:15:50 ENTRY DATE: JAN 25, 2024@09:15:51 AUTHOR: OSCAR GILL COSIGNER: URGENCY: STATUS: COMPLETED Please cancel appointment for today at 10 am with me per patient request. He wants to re-schedule for Jan 29 at 1300 /gustabo/ OSCAR GILL Registered Nurse Signed: 01/25/2024 09:17 Receipt Acknowledged By: 01/26/2024 08:44 /es/ ENRRIQUE YUAN ADVANCED SERVICE ADVISOR 01/25/2024 10:22 /es/ Clau Clinton ADVANCED SERVICE ADVISOR --- Original Document --- 12/22/23 NALTREXONE INJECTION NOTE (T): Patient Identity Verified By:Full SSN, Date of , Full Name Medication Ordered by:Dr. Ortiz Reason for Injection (Specify Diagnosis): Alcohol use disorder Date of last injection: 24 November 2023 Injection Details: Medication: Vivitrol Lot number: [id number] Expiration date: 11APR2026 Dosage:380mg Injection Site:Right Glute SVSO - Vital Select Outpat. Measurement DT TEMP RESP PULSE POx BP F(C) (L/MIN)(%) 2023 09:10 16 83 94 152/79 LAB RESULTS LAST 1440 HRS - NONE FOUND Active problems - Computerized Problem List is the source for the followin. Vitamin D Deficiency ([facility] [id number]) 2. Thrombocytopenia 3. Esophagitis 4. colon cancer screening 5. Erectile dysfunction 6. eGD 7. Exposure to potentially hazardous substance 8. Esophageal stricture 9. Migraine with Aura ([facility] [id number]) 10. Homeless 11. Dysphagia 12. Depression 13. Posttraumatic stress disorder 14. Hypertension 15. Idiopathic peripheral autonomic neuropathy 16. Severe alcohol dependence Active Outpatient Medications (including Supplies): CARBAMIDE PEROXIDE 6.5% OTIC SOLN INSTILL 5 DROPS INTO THE ACTIVE RIGHT EAR TWICE DAILY FOR EAR WAX BLOCKAGE CHOLECALCIF 1,250MCG (D3-50,000UNIT) CAP TAKE ONE CAPSULE ACTIVE (S) BY MOUTH WEEKLY FOR VITAMIN D DEFICIENCY CLONIDINE HCL 0.1MG TAB TAKE ONE TABLET BY MOUTH THREE ACTIVE (S) TIMES A DAY TO CONTROL BLOOD PRESSURE FOLIC ACID 1MG TAB TAKE ONE TABLET BY MOUTH ONCE DAILY ACTIVE (S) VITAMIN/NUTRITION SUPPLEMENT GABAPENTIN 300MG CAP TAKE ONE [...] TAKE ONE TABLET BY MOUTH EVERY ACTIVE (S) 24 HOURS NEEDED FOR ERECTILE DYSFUNCTION TAKE 1 HOUR PRIOR TO SEXUAL ACTIVITY THIAMINE 100MG TAB TAKE TWO TABLETS BY MOUTH ONCE DAILY ACTIVE (S) FOR VITAMIN SUPPLEMENTATION TRAZODONE HCL 50MG TAB TAKE ONE TABLET BY MOUTH AT BEDTIME ACTIVE (S) NEEDED FOR INSOMNIA ASSOCIATED WITH DEPRESSION Non-VA CAPSAICIN 0.025% CREAM SMALL AMOUNT TOPICALLY THREE ACTIVE TIMES A DAY Non-VA LIDOCAINE 5% PATCH 1 PATCH TOPICALLY ONCE DAILY ACTIVE Non-VA OMEPRAZOLE 20MG EC CAP 20MG BY MOUTH TWICE DAILY ACTIVE 01/11/2024 13:30 CWM/SO/PACT 1 POLICY WRITER TYPIST 03/01/2024 09:30 CWM/SO/MHC/CLAUDY Injection Narrative: Jarrod Browning is a 58 year old male who presents to this Nursing Clinic today for Vivitrol administration per Dr. Ortiz for ETOH dependence. This appointment is for an injection of extended-release Naltrexone and support for safe coping in regards to his diagnoses of Posttraumatic Stress Disorder and Alcohol use disorder. Jarrod is known to inspector automatic typewriter and presents well groomed, friendly, and oriented to person, place, time, and situation. Jarrod denies SI/HI and the use of alcohol since the one day slip up at the end of September.Is playing hockey, and getting in and out, so as not to be tempted by drinking with his peers. Administered Vivitrol 380mg IM at ROOM temperature in the Right gluteal while patient was STANDING non weight bearing, patient preference - given without adverse effects per order of Dr. Ortiz. PATIENT EDUCATION: denies side effects from medication. [place] acknowledges understanding of education offered regarding Naltrexone: [...] percentage of patients who receive Vivitrol . [place] acknowledges understanding that they should seek medical attention if injection site becomes increasingly painful, hard, swollen, red or hot. Shahid has read and signed the Vivitrol IMed consent. They have been offered a Vivitrol Patient Safety Card and/or Vivitrol ID Bracelet in case of need for emergency pain management. Date of next injection: 23 Jan 2024 Next Physician's/Provider's appointment: 01 Mar 2024 understands how to utilize the [facility] Crisis Line (9-8-8 option 1) and urged to call that number at any time if they have thoughts about suicide and, or to call 911 or go to nearest E.R. if they have suicidal thoughts. Shahid was provided the date/time of next medication administration appointment, as well as inspector automatic typewriter's contact information. If has any questions, concerns, or changes in current health status will call or [facility]. 30 min(s) spent in patient care and education. /gustabo/ OSCAR GILL Registered Nurse Signed: 2023 09:21 2023 ADDENDUM STATUS: COMPLETED RTC 01/22 10 am /cory GILL Registered Nurse Signed: 2023 09:22 Receipt Acknowledged By: 2023 09:46 /gustabo/ ENRRIQUE YUAN ADVANCED SERVICE ADVISOR 2023 10:31 /es/ Clau Clinton ADVANCED SERVICE ADVISOR 01/23/2024 ADDENDUM STATUS: COMPLETED Please cancel by patient appointment 01/22 at 10 am with me today /gustabo/ OSCAR GILL Registered Nurse Signed: 01/23/2024 11:28 01/23/2024 ADDENDUM STATUS: COMPLETED Please cancel appointment for today 01/22 and re-schedule for 01/24 at 10 am per request /cory GILL Registered Nurse Signed: 01/23/2024 11:37 Receipt Acknowledged By: 01/24/2024 08:52 /gustabo/ ENRRIQUE YUAN ADVANCED SERVICE ADVISOR 01/23/2024 11:40 /es/ Clau Clinton ADVANCED SERVICE ADVISOR OSCAR GILL Jan 23, 2024 11:36 AM ADDENDUM: LOCAL TITLE: Addendum STANDARD TITLE: ADDENDUM DATE OF NOTE: JAN 23, 2024@11:36:48 ENTRY DATE: JAN 23, 2024@11:36:49 AUTHOR: OSCAR GILL COSIGNER: URGENCY: STATUS: COMPLETED Please cancel appointment for today 01/22 and re-schedule for 01/24 at 10 am per request /cory GILL Registered Nurse Signed: 01/23/2024 11:37 Receipt Acknowledged By: 01/24/2024 08:52 /gustabo/ ENRRIQUE YUAN ADVANCED SERVICE ADVISOR 01/23/2024 11:40 /gustabo/ Clau Clinton ADVANCED SERVICE ADVISOR --- Original Document --- 12/22/23 NALTREXONE INJECTION NOTE (T): Patient Identity Verified By:Full SSN, Date of , Full Name Medication Ordered by:Dr. Ortiz Reason for Injection (Specify Diagnosis): Alcohol use disorder Date of last injection: 24 November 2023 Injection Details: Medication: Vivitrol Lot number: [id number] Expiration date: 11APR2026 Dosage:380mg Injection Site:Right Glute SVSO - Vital Select Outpat. Measurement DT TEMP RESP PULSE POx BP F(C) (L/MIN)(%) 2023 09:10 16 83 94 152/79 LAB RESULTS LAST 1440 HRS - NONE FOUND Active problems - Computerized Problem List is the source for the followin. Vitamin D Deficiency ([facility] [id number]) 2. Thrombocytopenia 3. Esophagitis 4. colon cancer screening 5. Erectile dysfunction 6. eGD 7. Exposure to potentially hazardous substance 8. Esophageal stricture 9. Migraine with Aura ([facility] [id number]) 10. Homeless 11. Dysphagia 12. Depression 13. Posttraumatic stress disorder 14. Hypertension 15. Idiopathic peripheral autonomic neuropathy 16. Severe alcohol dependence Active Outpatient Medications (including Supplies): CARBAMIDE PEROXIDE 6.5% OTIC SOLN INSTILL 5 DROPS INTO THE ACTIVE RIGHT EAR TWICE DAILY FOR EAR WAX BLOCKAGE CHOLECALCIF 1,250MCG (D3-50,000UNIT) CAP TAKE ONE CAPSULE ACTIVE (S) BY MOUTH WEEKLY FOR VITAMIN D DEFICIENCY CLONIDINE HCL 0.1MG TAB TAKE ONE TABLET BY MOUTH THREE ACTIVE (S) TIMES A DAY TO CONTROL BLOOD PRESSURE FOLIC ACID 1MG TAB TAKE ONE TABLET BY MOUTH ONCE DAILY ACTIVE (S) VITAMIN/NUTRITION SUPPLEMENT GABAPENTIN 300MG CAP TAKE ONE [...] TAKE ONE TABLET BY MOUTH EVERY ACTIVE (S) 24 HOURS NEEDED FOR ERECTILE DYSFUNCTION TAKE 1 HOUR PRIOR TO SEXUAL ACTIVITY THIAMINE 100MG TAB TAKE TWO TABLETS BY MOUTH ONCE DAILY ACTIVE (S) FOR VITAMIN SUPPLEMENTATION TRAZODONE HCL 50MG TAB TAKE ONE TABLET BY MOUTH AT BEDTIME ACTIVE (S) NEEDED FOR INSOMNIA ASSOCIATED WITH DEPRESSION Non-VA CAPSAICIN 0.025% CREAM SMALL AMOUNT TOPICALLY THREE ACTIVE TIMES A DAY Non-VA LIDOCAINE 5% PATCH 1 PATCH TOPICALLY ONCE DAILY ACTIVE Non-VA OMEPRAZOLE 20MG EC CAP 20MG BY MOUTH TWICE DAILY ACTIVE 01/11/2024 13:30 CWM/SO/PACT 1 POLICY WRITER TYPIST 03/01/2024 09:30 CWM/SO/MHC/CLAUDY Injection Narrative: Jarrod Browning is a 58 year old male [place] who presents to this Nursing Clinic today for Vivitrol administration per Dr. Ortiz for ETOH dependence. This appointment is for an injection of extended-release Naltrexone and support for safe coping in regards to his diagnoses of Posttraumatic Stress Disorder and Alcohol use disorder. Jarrod is known to inspector automatic typewriter and presents well groomed, friendly, and oriented to person, place, time, and situation. Jarrod denies SI/HI and the use of alcohol since the one day slip up at the end of September.Is playing hockey, and getting in and out, so as not to be tempted by drinking with his peers. Administered Vivitrol 380mg IM at ROOM temperature in the Right gluteal while patient was STANDING non weight bearing, patient preference - given without adverse effects per order of Dr. Ortiz. PATIENT EDUCATION: denies side effects from medication. [place] acknowledges understanding of education offered regarding Naltrexone: it blocks opioid receptor sites and they will not experience a sense of euphoria if they use alcohol or opioids, it will reduce effectiveness of opioid pain analgesics, and they should abstain from alcohol and illicit drugs as part of long-acting Naltrexone treatment. [place] acknowledges understanding the possibility of significant injection [...] emergency pain management. Date of next injection: 23 Jan 2024 Next Physician's/Provider's appointment: 01 Mar 2024 understands how to utilize the [place] Crisis Line (9-8-8 option 1) and urged to call that number at any time if they have thoughts about suicide and, or to call 911 or go to nearest E.R. if they have suicidal thoughts. was provided the date/time of next medication administration appointment, as well as inspector automatic typewriter's contact information. If [place] has any questions, concerns, or changes in current health status will call or come [facility]. 30 min(s) spent in patient care and education. /cory GILL Registered Nurse Signed: 2023 09:21 2023 ADDENDUM STATUS: COMPLETED RTC 01/22 10 am /cory GILL Registered Nurse Signed: 2023 09:22 Receipt Acknowledged By: 2023 09:46 /cory YUAN ADVANCED SERVICE ADVISOR 2023 10:31 /gustabo/ Clau Clinton ADVANCED SERVICE ADVISOR 01/23/2024 ADDENDUM STATUS: COMPLETED Please cancel by patient appointment 01/22 at 10 am with me today /cory GILL Registered Nurse Signed: 01/23/2024 11:28 OSCAR GILL 2023 09:22 AM ADDENDUM: LOCAL TITLE: Addendum STANDARD TITLE: ADDENDUM DATE OF NOTE: 2023@09:22:27 ENTRY DATE: 2023@09:22:27 AUTHOR: OSCAR GILLIGNER: URGENCY: STATUS: COMPLETED RTC 01/22 10 am /cory GILL Registered Nurse Signed: 2023 09:22 Receipt Acknowledged By: 2023 09:46 /cory YUAN ADVANCED SERVICE ADVISOR 2023 10:31 /gustabo/ Clau Clinton ADVANCED SERVICE ADVISOR --- Original Document --- 12/22/23 NALTREXONE INJECTION NOTE (T): Patient Identity Verified By:Full SSN, Date of , Full Name Medication Ordered by:Dr. Ortiz Reason for Injection (Specify Diagnosis): Alcohol use disorder Date of last injection: 24 November 2023 Injection Details: Medication: Vivitrol Lot number: [id number] Expiration date: 11APR2026 Dosage:380mg Injection Site:Right Glute SVSO - Vital Select Outpat. Measurement DT TEMP RESP PULSE POx BP F(C) (L/MIN)(%) 2023 09:10 16 83 94 152/79 LAB RESULTS LAST 1440 HRS - NONE FOUND Active problems - Computerized Problem List is the source for the followin. Vitamin D Deficiency ([facility] [id number]) 2. Thrombocytopenia 3. Esophagitis 4. colon cancer screening 5. Erectile dysfunction 6. eGD 7. Exposure to potentially hazardous substance 8. Esophageal stricture 9. Migraine with Aura ([facility] [id number]) 10. Homeless 11. Dysphagia 12. Depression 13. Posttraumatic stress disorder 14. Hypertension 15. Idiopathic peripheral autonomic neuropathy 16. Severe alcohol dependence Active Outpatient Medications (including Supplies): CARBAMIDE PEROXIDE 6.5% OTIC SOLN INSTILL 5 DROPS INTO THE ACTIVE RIGHT EAR TWICE DAILY FOR EAR WAX BLOCKAGE CHOLECALCIF 1,250MCG (D3-50,000UNIT) CAP TAKE ONE CAPSULE ACTIVE (S) BY MOUTH WEEKLY FOR VITAMIN D DEFICIENCY CLONIDINE HCL 0.1MG TAB TAKE ONE TABLET BY MOUTH THREE ACTIVE (S) TIMES A DAY TO CONTROL BLOOD PRESSURE FOLIC ACID 1MG TAB TAKE ONE TABLET BY MOUTH ONCE DAILY ACTIVE (S) VITAMIN/NUTRITION SUPPLEMENT GABAPENTIN 300MG CAP TAKE ONE [...] TAKE ONE TABLET BY MOUTH EVERY ACTIVE (S) 24 HOURS NEEDED FOR ERECTILE DYSFUNCTION TAKE 1 HOUR PRIOR TO SEXUAL ACTIVITY THIAMINE 100MG TAB TAKE TWO TABLETS BY MOUTH ONCE DAILY ACTIVE (S) FOR VITAMIN SUPPLEMENTATION TRAZODONE HCL 50MG TAB TAKE ONE TABLET BY MOUTH AT BEDTIME ACTIVE (S) NEEDED FOR INSOMNIA ASSOCIATED WITH DEPRESSION Non-VA CAPSAICIN 0.025% CREAM SMALL AMOUNT TOPICALLY THREE ACTIVE TIMES A DAY Non-VA LIDOCAINE 5% PATCH 1 PATCH TOPICALLY ONCE DAILY ACTIVE Non-VA OMEPRAZOLE 20MG EC CAP 20MG BY MOUTH TWICE DAILY ACTIVE 01/11/2024 13:30 CWM/SO/PACT 1 POLICY WRITER TYPIST 03/01/2024 09:30 CWM/SO/MHC/CLAUDY Injection Narrative: Jarrod Browning is a 58 year old male [place] who presents to this Nursing Clinic today for Vivitrol administration per Dr. Ortiz for ETOH dependence. This appointment is for an injection of extended-release Naltrexone and support for safe coping in regards to his diagnoses of Posttraumatic Stress Disorder and Alcohol use disorder. Jarrod is known to inspector automatic typewriter and presents well groomed, friendly, and oriented to person, place, time, and situation. Jarrod denies SI/HI and the use of alcohol since the one day slip up at the end of September.Is playing hockey, and getting in and out, so as not to be tempted by drinking with his peers. Administered Vivitrol 380mg IM at ROOM temperature in the Right gluteal while patient was STANDING non weight bearing, patient preference - given without adverse effects per order of Dr. Ortiz. PATIENT EDUCATION: [place] denies side effects from medication. [place] acknowledges understanding of education offered regarding Naltrexone: [...] percentage of patients who receive Vivitrol . [place] acknowledges understanding that they should seek medical attention if injection site becomes increasingly painful, hard, swollen, red or hot. [place] has read and signed the Vivitrol IMed consent. They have been offered a Vivitrol Patient Safety Card and/or Vivitrol ID Bracelet in case of need for emergency pain management. Date of next injection: 23 Jan 2024 Next Physician's/Provider's appointment: 01 Mar 2024 understands how to utilize the [facility] Crisis Line (9-8-8 option 1) and urged to call that number at any time if they have thoughts about suicide and, or to call 911 or go to nearest E.R. if they have suicidal thoughts. was provided the date/time of next medication administration appointment, as well as inspector automatic typewriter's contact information. If [place] has any questions, concerns, or changes in current health status will call or come [facility]. 30 min(s) spent in patient care and education. /gustabo/ OSCAR GILL Registered Nurse Signed: 2023 09:21 OSCAR GILL 2023 09:13 AM MENTAL HEALTH NOTE : LOCAL TITLE: NALTREXONE INJECTION NOTE (T) STANDARD TITLE: MENTAL HEALTH NOTE DATE OF NOTE: 2023@09:13 ENTRY DATE: 2023@09:13:22 AUTHOR: OSCAR GILL EXP COSIGNER: URGENCY: STATUS: COMPLETED NALTREXONE INJECTION NOTE (T) Has ADDENDA Patient Identity Verified By:Full SSN, Date of , Full Name Medication Ordered by:Dr. Ortiz Reason for Injection (Specify Diagnosis): Alcohol use disorder Date of last injection: 24 November 2023 Injection Details: Medication: Vivitrol Lot number: [id number] Expiration date: 11APR2026 Dosage:380mg Injection Site:Right Glute SVSO - Vital Select Outpat. Measurement DT TEMP RESP PULSE POx BP F(C) (L/MIN)(%) 2023 09:10 16 83 94 152/79 LAB RESULTS LAST 1440 HRS - NONE FOUND Active problems - Computerized Problem List is the source for the followin. Vitamin D Deficiency ([facility] [id number]) 2. Thrombocytopenia 3. Esophagitis 4. colon cancer screening 5. Erectile dysfunction 6. eGD 7. Exposure to potentially hazardous substance 8. Esophageal stricture 9. Migraine with Aura ([facility] [id number]) 10. Homeless 11. Dysphagia 12. Depression 13. Posttraumatic stress disorder 14. Hypertension 15. Idiopathic peripheral autonomic neuropathy 16. Severe alcohol dependence Active Outpatient Medications (including Supplies): CARBAMIDE PEROXIDE 6.5% OTIC SOLN INSTILL 5 DROPS INTO THE ACTIVE RIGHT EAR TWICE DAILY FOR EAR WAX BLOCKAGE CHOLECALCIF 1,250MCG (D3-50,000UNIT) CAP TAKE ONE CAPSULE ACTIVE (S) BY MOUTH WEEKLY FOR VITAMIN D DEFICIENCY CLONIDINE HCL 0.1MG TAB TAKE ONE TABLET BY MOUTH THREE ACTIVE (S) TIMES A DAY TO CONTROL BLOOD PRESSURE FOLIC ACID 1MG TAB TAKE ONE TABLET BY MOUTH ONCE DAILY ACTIVE (S) VITAMIN/NUTRITION SUPPLEMENT GABAPENTIN 300MG CAP TAKE ONE [...] TAKE ONE TABLET BY MOUTH EVERY ACTIVE (S) 24 HOURS NEEDED FOR ERECTILE DYSFUNCTION TAKE 1 HOUR PRIOR TO SEXUAL ACTIVITY THIAMINE 100MG TAB TAKE TWO TABLETS BY MOUTH ONCE DAILY ACTIVE (S) FOR VITAMIN SUPPLEMENTATION TRAZODONE HCL 50MG TAB TAKE ONE TABLET BY MOUTH AT BEDTIME ACTIVE (S) NEEDED FOR INSOMNIA ASSOCIATED WITH DEPRESSION Non-VA CAPSAICIN 0.025% CREAM SMALL AMOUNT TOPICALLY THREE ACTIVE TIMES A DAY Non-VA LIDOCAINE 5% PATCH 1 PATCH TOPICALLY ONCE DAILY ACTIVE Non-VA OMEPRAZOLE 20MG EC CAP 20MG BY MOUTH TWICE DAILY ACTIVE 01/11/2024 13:30 CWM/SO/PACT 1 POLICY WRITER TYPIST 03/01/2024 09:30 CWM/SO/MHC/CLAUDY Injection Narrative: Jarrod Browning is a 58 year old male [place] who presents to this Nursing Clinic today for Vivitrol administration per Dr. Ortiz for ETOH dependence. This appointment is for an injection of extended-release Naltrexone and support for safe coping in regards to his diagnoses of Posttraumatic Stress Disorder and Alcohol use disorder. Jarrod is known to inspector automatic typewriter and presents well groomed, friendly, and oriented to person, place, time, and situation. Jarrod denies SI/HI and the use of alcohol since the one day slip up at the end of September.Is playing hockey, and getting in and out, so as not to be tempted by drinking with his peers. Administered Vivitrol 380mg IM at ROOM temperature in the Right gluteal while patient was STANDING non weight bearing, patient preference - given without adverse effects per order of Dr. Ortiz. PATIENT EDUCATION: [place] denies side effects from medication. acknowledges understanding of education offered regarding Naltrexone: it blocks opioid receptor sites and they will not experience a sense of euphoria if they use alcohol or opioids, it will reduce effectiveness of opioid pain analgesics, and they should abstain from alcohol and illicit drugs as part of long-acting Naltrexone treatment. [place] acknowledges understanding the possibility of significant injection site reactions that occur in a small percentage of patients who receive Vivitrol . acknowledges understanding that they should seek medical attention if injection site becomes increasingly painful, hard, swollen, red or hot. [place] has read and signed the Vivitrol IMed consent. They have been offered a Vivitrol Patient Safety Card and/or Vivitrol ID Bracelet in case of need for emergency pain management. Date of next injection: 23 Jan 2024 Next Physician's/Provider's appointment: 01 Mar 2024 [place] understands how to utilize the [facility] Crisis Line (9-8-8 option 1) and urged to call that number at any time if they have thoughts about suicide and, or to call 911 or go to nearest E.R. if they have suicidal thoughts. Shahid was provided the date/time of next medication administration appointment, as well as inspector automatic typewriter's contact information. If [place] has any questions, concerns, or changes in current health status will call or come [facility] to the [facility]. 30 min(s) spent in patient care and education. /gustabo/ OSCAR GILL Registered Nurse Signed: 2023 09:21 2023 ADDENDUM STATUS: COMPLETED RTC 01/22 10 am /cory GILL Registered Nurse Signed: 2023 09:22 Receipt Acknowledged By: 2023 09:46 /gustabo/ ENRRIQUE YUAN ADVANCED SERVICE ADVISOR 2023 10:31 /gustabo/ Clau Clinton ADVANCED SERVICE ADVISOR 01/23/2024 ADDENDUM STATUS: COMPLETED Please cancel by patient appointment 01/22 at 10 am with me today /cory GILL Registered Nurse Signed: 01/23/2024 11:28 01/23/2024 ADDENDUM STATUS: COMPLETED Please cancel appointment for today 01/22 and re-schedule for 01/24 at 10 am per request /gustabo/ OSCAR GILL Registered Nurse Signed: 01/23/2024 11:37 Receipt Acknowledged By: 01/24/2024 08:52 /gustabo/ ENRRIQUE YUAN ADVANCED SERVICE ADVISOR 01/23/2024 11:40 /es/ Clau Clinton ADVANCED SERVICE ADVISOR 01/25/2024 ADDENDUM STATUS: COMPLETED Please cancel appointment for today at 10 am with me per patient request. He wants to re-schedule for Jan 29 at 1300 /gustabo/ OSCAR GILL Registered Nurse Signed: 01/25/2024 09:17 Receipt Acknowledged By: * AWAITING SIGNATURE * ENRRIQUE YUAN * AWAITING SIGNATURE * CLAU CLINTON LISA [place]
--- OUTSIDE RECORDS SUMMARY | 2024-08-14 17:15 | XMS_ITS | Encounter Summary ---
Author Name [facility] [place] [facility] [place] [facility] [place] Address [address] [place] [id number] Care Team Providers Care Manual Machinist Name Role Phone JARROD KOHLER Primary Care [...] Christianson's Name Patient's Relationship to Policy Christianson [facility] CE ORGANIZAT ION HEALT H [facility] Dec 11, 2023 [id number] NALLELY,LAWRENCE ID PATIENT [facility] CE ORGANIZAT ION FAIRV IEW COMMO NS Nov 24, 2021 [id number] NALLELY,LAWRENCE ID PATIENT [facility] CE [facility]GAN[facility]AT ION [facility] Sep 11, 2019 [id number] NALLELY,LAWRENCE ID PATIENT [facility] CE ORGANIZAT ION FAIRV IEW COMMO NS Apr 12, 2012 [id number] NALLELY,LAWRENCE ID PATIENT [facility] PRESCRIPT ION [facility] May 14, 2024 [facility] [id number] [id number] NALLELY,LAWRENCE ID PATIENT [facility] RX PRESCRIPT ION HDHP/ HSA Nov 24, 2021 [facility] [id number] [phone] NALLELY,LAWRENCE ID PATIENT OPTUM RX PRESCRIPT ION HEALT H [place] Nov 24, 2021 [facility] [id number] NALLELY,LAWRENCE ID PATIENT OPT[facility] RX PRESCRIPT ION HEALT H [place] Sep 11, 2019 [facility] [id number] NALLELY,LAWRENCE ID PATIENT OPT[facility] RX PRESCRIPT ION HEALT H [place] Aug 17, 2004 NONE [id number] [phone] NALLELY,LAWRENCE ID PATIENT Selected Encounter This section includes the information on record at [place] for the Encounter. Date/Time Encounter Type Encounter Description Reason Provider Source Jun 28, 2024 11:30 AM OFFICE O/P EST MOD 30 MIN [facility] - IND ICD-10-CM F43.10 Post-traumatic stress disorder, unspecified ANDRIA LOCO Marilyn Encounter Template Text not used by [place] Assessments - Encounter Diagnoses This section includes the primary and secondary diagnoses documented for the Encounter. Date/Time Primary/Secondary Diagnosis Diagnosis Name Provider Source Jun 28, 2024 12:49 PM PRIMARY Post-traumatic stress disorder, unspecified FITO [...] Appointment Type Appointme nt Facility Name Jul 16, 2024 01:15 PM [facility] Jul 16, 2024 01:30 PM [facility] Jul 30, 2024 10:00 AM AMBULATORY - [place]ICINE [place] C NTRL [facility]N [facility] Jul 30, 2024 10:30 AM AM[place]ULATORY [place] [facility] Aug 28, 2024 11:00 AM AMBULATORY - PSYCHIATRY [facility] Sep 12, 2024 10:00 AM AM[place]ULATORY [place]ICINE [place] C NTRL [facility] October 24, 2024 02:00 PM [facility] Active, Pending, and Scheduled Orders [...] PM Consult Order EKG TRACIN G/SPOPC OUTPT [facility] Security Rep's [facility] Jul 16, 2024 02:18 PM Consult Order COMMUNITY CARE-COLONOSCOPY SCREENING WITH EGD [facility] Security Rep's [facility] Lab Results: +/- 30 days of the encounter This section includes the Chemistry and Hematology Lab Results on record with [place] for the patient. Radiology Reports and Pathology Reports are provided separately, in subsequent sections. Lab Results This section contains the Chemistry/Hematology Results that were resulted 30 days before or 30 daysafter the date of the Encounter. Date/Time Source Result Type Result - Unit Interpretation Reference Range Comment Jul 16, 2024 01:28 PM [place] LIVER FUNCTION Specimen Type: SERUM No comment entered. Ordering Provider: RASHAWN LOCO Report Released Date/Time: Jun 28, 2024 12:42 PM Reporting Lab: [address] [address] Performing Lab: [address] [address] PROTEIN,TOTAL 8.6 g/dL H 6.0-8.3 ALBUMIN 3.9 g/dL 3.5-5.0 ALKALINE PHOSPHATASE 98 U/L 40-150 AST 66 U/L H 5-34 ALT 42 U/L BILIRUBIN, TOTAL 0.4 mg/dL 0.2-1.2 Jul 16, 2024 01:28 PM [place] MAGNESIUM Specimen Type: SERUM No comment entered. Ordering Provider: JARROD KOHLER Report Released Date/Time: Jul 16, 2024 01:10 PM Reporting Lab: [address] [address] Performing Lab: [facility] [address] [address] MAGNESIUM 1.4 mg/dL L 1.6-2.6 Jul 16, 2024 01:28 PM [place] LIPID PANEL, NON FASTING Specimen Type: SERUM No comment entered. Ordering Provider: JARROD KOHLER Report Released Date/Time: Jul 16, 2024 01:10 PM Reporting Lab: [address] [address] Performing Lab: [address] [address] CHOLESTEROL 197 mg/dL TRIGLYCERIDE 79 mg/dL 0-150 LDL calculated 119 mg/dL 0-129 CHOL/HDL 3.2 HDL CHOLESTEROL 62 mg/dL H 40-60 Jul 16, 2024 01:28 PM [place] BASIC METABOLIC PANEL (non-fasting) Spe cimen Type: SERUM No comment entered. Ordering Provider: JARROD KOHLER Report Released Date/Time: Jul 16, 2024 01:10 PM Reporting Lab: [facility] [address] [address] Performing Lab: [address] [address] UREA NITROGEN 7 mg/dL 7-25 GLUCOSE 136 mg/dL H 65-100 SODIUM 138 mmol/L 135-145 POTASSIUM 3.6 mmol/L 3.5-5.0 CHLORIDE 104 mmol/L 100-110 CO2 23 meq/L 20-30 CREATININE, Serum 0.99 mg/dL 0.50-1.40 eGFR(CKD-EPI 2020) 89 mL/min >60 Jul 16, 2024 01:28 PM [place] CBC Specimen Type: BLOOD No comment entered. Ordering Provider: JARROD KOHLER Report Released Date/Time: Jul 16, 2024 01:10 PM Reporting Lab: [address] [address] Performing Lab: [address] [address] WBC 4.47 10*3/uL L 4.50-11.00 RBC 4.95 [...] Pain Height Weight Body Mass Index Source Jun 28, 2024 12:54 PM 85 201/117 16 96 3 [facility] Advance Directives: All historical and current Section Date Range: From patient's date of to the date document was created. This section includes ALL of a patient's completed or amended [facility] Advance and Rescinded Directives. The entries below indicate that a directive exists for the patient, but an actual copy is not included with this document. The data comes from all [place] facilities. Date Advance Directives Provider Source Nov 22, 2022 ADVANCE DIRECTIVE DISCUSSION RAFAELA MANRIQUEZ [facility] Apr 20, 2022 ADVANCE DIRECTIVE SIN WHARTON [facility] Encounter Notes: All associated encounter notes This section contains the clinical notes associated to the Encounter. Date/Time Encounter Note(s) Provider Source Jun 28, 2024 11:35 AM PSYCHIATRY NOTE: LOCAL TITLE: PSYCHIATRY NOTE STANDARD TITLE: PSYCHIATRY NOTE DATE OF NOTE: JUN 28, 2024@11:35 ENTRY DATE: JUN 28, 2024@11:35:40 AUTHOR: FITO LOCO EXP COSIGNER: URGENCY: STATUS: COMPLETED PSYCHIATRY NOTE Has ADDENDA 30 minutes for encounter, including chart review, interview, charting chart reviewed s/p 3 mo [facility] residential program for alcohol and ptsd and then 2 mo at [facility] PTSD residential program, lauren from this 01/01; 01/2023 at [facility] in [facility] ; now in own apt -- [place] And pt s/p recent inpt tx for pneumonia at [facility] for 10d, dc'd before Thanksgiving -- now feels recovered, feels much better physically -- pt has primary care follow up scheduled See my 05/18/2022 note for more history Pt presents as stable from mental health standpoint. Doing well overall. Good mood. Denies depression. PTSD sx's improved, managable. Affect brightens appropriately. Denies h/o psychotic sx's. Well organized thoughts. No PI or delusions presented. Denies SI and violent ideation. Speech normal. Cognitive exam grossly intact. Good self care. No slowing. Has interests -- stays busy, likes playing hockey, played hockey yesterday. Nother discussion - pt again reports current psych meds help significantly, see below. He wants to keep the same. Denies side effects w current medications. Denies next-day sedation with medications. 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 encourage to see therapist patricia Bernardo in [facility], Finoa Ibarra , -- pt has not seen recently , does not feel he needs psychotherapy at this time pt understands OBI/recovery grp at this clinic [...] this problem. continue Vivitrol IM monthly for AUD. Note pt signed Vivitrol (naltrexone IM) consent form 12/07/2022. Carefully reviewed risk of injection site reaction with the patient, as well as other potential side effects on form and listed below. Patient has tolerated well so far. LFTs wnl 07/2023 at [place]; I called [facility] lab - LFTs 05/02/24 AST 42, ALT 14 which is ok for continue vivitrol ; Cr 0.88 05/06 routine LFTs ordered The side affect profile of naltrexone was [...] to open access sooner if needed. pt has f/u w primary care medical f/u current address: [address] [place] [address] Juwan Roth MA -- pt will have this updated in [place] system Medication Reconciliation: Outpatient: Has the patient been taking medications as documented in the EMLR? YES: The patient has been taking medications as documented in the EMLR. Essential Medication List for Review used to complete this medication reconciliation. INCLUDED IN THIS LIST: Alphabetical list of active outpatient prescriptions dispensed from this [place] (local) and dispensed from another [place] or [facility] facility (remote) as well as inpatient [...] whether with a VA or non-VA provider. Alcohol Use Screen (AUDIT-C): Alcohol Screen: SCREEN FOR ALCOHOL (AUDIT-C) An alcohol screening test (AUDIT-C) was negative (score=0). 1. How often did you have a drink containing alcohol in the past year? Consider a drink to be a 12 ounce can or bottle of regular beer, 8 ounces of malt liquor, a 5 ounce glass of table wine, or a 1.5 ounce shot of liquor (like scotch, gin, or vodka). Never (except for 2 beer 10/2023) 2. How many drinks containing alcohol did you have on a typical day when you were drinking in the past year? Response not required due to responses to other questions. 3. How often did you have six or more drinks on one occasion in the past year? Response not required due to responses to other questions. /gustabo/ FITO LOCO MD STAFF PSYCHIATRIST Signed: 06/28/2024 12:49 Receipt Acknowledged By: 06/28/2024 12:55 /gustabo/ Clau Clinton ADVANCED ART HISTORIAN 06/28/2024 ADDENDUM STATUS: COMPLETED Clarify impression section above: Alcohol use disorder, in sustained remission (reports sobriety since 01/2022, except 2 beer 10/2023) /gustabo/ FITO LOCO MD STAFF PSYCHIATRIST Signed: 06/28/2024 12:52 FITO LOCO
--- OUTSIDE RECORDS SUMMARY | 2024-08-14 17:15 | XMS_ITS | Encounter Summary ---
Author Name [facility] [place] [facility] [place] [facility] [place] Address [address] [place] [id number] Care Team Providers Care Anesthesia Tech Name Role Phone JARROD ESPOSITO Primary Care Provider Unavailabl e Insurance Providers: [...] Christianson's Name Patient's Relationship to Policy Christianson [facility] CE ORGANIZAT ION HEALT H [facility] Dec 11, 2023 [id number] NALLELY,LAWRENCE ID PATIENT [facility] CE ORGANIZAT ION FAIRV IEW COMMO NS Nov 24, 2021 [id number] NALLELY,LAWRENCE ID PATIENT [facility] CE ORGANIZAT ION [facility] Sep 11, 2019 [id number] [phone] NALLELY,LAWRENCE ID PATIENT [facility] CE ORGANIZAT ION FAIRV IEW COMMO NS Apr 12, 2012 [id number] [phone] NALLELY,LAWRENCE ID PATIENT [facility] RX PRESCRIPT ION [facility] May 14, 2024 [facility] [id number] NALLELY,LAWRENCE ID PATIENT OPTUM RX PRESCRIPT ION HDHP/ HSA Nov 24, 2021 [facility] [id number] [phone] NALLELY,LAWRENCE ID PATIENT OPTUM RX PRESCRIPT ION HEALT H [place] Nov 24, 2021 [facility] [id number] NALLELY,LAWRENCE ID PATIENT OPTUM RX PRESCRIPT ION HEALT H [place] Sep 11, 2019 [facility] [id number] [phone] NALLELY,LAWRENCE ID PATIENT [facility] RX PRESCRIPT ION HEALT H [place] Aug 17, 2004 NONE [id number] [phone] NALLELY,LAWRENCE ID PATIENT Selected Encounter This section includes the information on record at [place] for the Encounter. Date/Time Encounter Type Encounter Description Reason Provider Source Nov 24, 2023 11:45 AM OFF/OP EST OCTOBER X REQ PHY/QHP PRIMARY CARE/MEDICINE ICD-10-CM H61.23 Impacted cerumen, bilateral GUADALUPE RICHARD Marilyn Encounter Template Text not used by [place] Assessments - Encounter Diagnoses This section includes the primary and secondary diagnoses documented for the Encounter. Date/Time Primary/Secondary Diagnosis Diagnosis Name Provider Source Nov 24, 2023 02:59 PM PRIMARY Impacted cerumen, bilateral GUADALUPE RICHARD [place] Plan of Treatment: Future Appointments (+ 6 [...] 28, 2023 11:00 AM AMBULATORY - MEDICINE [facility] 2023 08:30 AM AMBULATORY - PSYCHIATRY [facility] Jan 30, 2024 01:00 PM AMBULATORY - PSYCHIATRY [facility] Feb 29, 2024 10:00 AM AMBULATORY PSYCHIATRY [facility] Mar 01, 2024 09:30 AM AMBULATORY - PSYCHIATRY [facility] Mar 28, 2024 11:00 AM [facility] Apr 25, 2024 01:00 PM [facility] May 24, 2024 11:00 AM [facility] Active, Pending, and Scheduled Orders This section includes a listing of several types of active, pending, and scheduled orders, including clinic medications orders, diagnostic test orders, procedure orders and consult orders; where the start date of the order is 45 days before the date of the Encounter or 45 days after the date of theEncounter. The data comes from all [place] treatment facilities. Test Date/Time Test Type Test Details Facility Name November 06, 2023 12:00 AM Laboratory - Chemi stry Order VITAMIN D (25-OH) BLOOD (SST-SERUM) [facility] Vital Signs: All taken on the encounter date This section contains inpatient and outpatient Vital Signs collected on the date of the Encounter. Date/Time Temperature Pulse Blood Pressure Respiratory Rate SP02 Pain Height Weight Body Mass Index Source Nov 24, 2023 12:42 PM 98.1 64 152/90 16 95 0 [facility] Advance Directives: All historical [...] 22, 2022 ADVANCE DIRECTIVE DISCUSSION RAFAELA MANRIQUEZ [facility] Apr 20, 2022 ADVANCE DIRECTIVE SIN WHARTON [facility] Encounter Notes: All associated encounter notes This section contains the clinical notes associated to the Encounter. Date/Time Encounter Note(s) Provider Source Nov 24, 2023 12:44 PM PRIMARY CARE NOTE: LOCAL TITLE: WALK-IN NOTE PRIMARY CARE (T) STANDARD TITLE: PRIMARY CARE NOTE DATE OF NOTE: NOV 24, 2023@12:44 ENTRY DATE: NOV 24, 2023@12:44:31 AUTHOR: GUADALUPE RICHARD COSIGNER: URGENCY: STATUS: COMPLETED Data: 57year old MALE White reports to Primary Care clinic for Walk-In visit. 's PCP is Jarrod Esposito CHIEF DESIGN DRAFTER, last visit with PCP (Dr eKssler) was 09/01/23, next visit scheduled for 01/11/24. Today Vet walks in to clinic with complaint of balance off Last recorded Vital Signs are: Temperature:98.1 F [36.7 C] (11/24/2023 12:42) Pulse:64 (11/24/2023 12:42) Blood Pressure:152/90 (11/24/2023 12:42) Respiration:16 (11/24/2023 12:42) Pain:0 (11/24/2023 12:42) Vet reports current allergies are: Remote Allergy Data No Remote Allergy/ADR Data available for this patient Current Medications from Active Med list include: Active Outpatient Medications (including Supplies): Active Outpatient Medications Status = 1) CHOLECALCIF 1,250MCG (D3-50,000UNIT) CAP TAKE ONE [...] BEDTIME 7) NALTREXONE(EQV-VIVITROL)380MG/NAVEED SA INJ INJECT 1 ACTIVE VIAL [...] TAKE TWO TABLETS BY MOUTH ONCE ACTIVE (S) DAILY FOR VITAMIN SUPPLEMENTATION 12) TRAZODONE HCL [...] MOUTH TWICE ACTIVE DAILY 15 Total Medications Action: White reports intermittent right ear pain starting 3 weeks earlier. Today denies pain Denies drainage Tinnitus at baseline Reports using paperclip to right ear 2 days ago and removed wax from ear. Bilateral ear impacted with cerumen. Irrigated with good effect. will need to use drops and return to clinic for right ear. Reminders Info Only: [facility] Capable [...] GUADALUPE RICHARD RN PRIMARY CARE RN Signed: 11/24/2023 14:59 GUADALUPE RICHARD [place]
--- OUTSIDE RECORDS SUMMARY | 2024-08-14 17:15 | XMS_ITS | Encounter Summary ---
Author Name [facility] [place] Address [address] [place] [address] Care Team Providers Care Seaweed Harvester Name Role Phone JARROD KOHLER Primary Care [...] Patient's Relationship to Policy Christianson [facility] CE ORGANIZAT ION HEALT H [facility] Dec 11, 2023 [id number] [phone] NALLELY,LAWRENCE ID PATIENT [facility] CE ORGANIZAT ION FAIRV IEW COMMO NS Nov 24, 2021 [id number] NALLELY,LAWRENCE ID PATIENT [facility] CE ORGANIZAT ION [facility] Sep 11, 2019 [id number] [phone] NALLELY,LAWRENCE ID PATIENT [facility] CE ORGANIZAT ION FAIRV IEW COMMO NS Apr 12, 2012 [id number] [id number] NALLELY,LAWRENCE ID PATIENT OPTUM RX PRESCRIPT ION [facility] May 14, 2024 [facility] [id number] [phone] NALLELY,LAWRENCE ID PATIENT OPTUM RX PRESCRIPT ION HDHP/ HSA Nov 24, 2021 [facility] [id number] NALLELY,LAWRENCE ID PATIENT OPTUM RX PRESCRIPT ION [facility]ALT [facility] [place] Nov 24, 2021 [facility] [id number] [phone] NALLELY,LAWRENCE ID PATIENT OPTUM RX PRESCRIPT ION HEALT H [facility] Sep 11, 2019 [facility] [id number] [phone] NALLELY,LAWRENCE ID PATIENT [facility]UM RX PRESCRIPT [facility] 2004 [facility] [id number] [phone] NALLELY,LAWRENCE ID PATIENT Selected Encounter This section includes the information on record at [place] for the Encounter. Date/Time Encounter Type Encounter Description Reason Pro vider Source Jul 16, 2024 01:30 PM Outpatient Encounter EVENT (HISTORICAL) IHE Encounter Template Text not used by [place] Plan of Treatment: Future Appointments (+ 6 months) and Future Tests (+/- 45 days) The Plan of Treatment section includes future care activities for the patient from all [place] treatmentfacilities. This section includes future appointments and future orders which are active, pending or scheduled. Future Appointments This section includes appointments that were scheduled to occur 6 months from the date of the Encounter, up to a maximum of 20 appointments. The data comes from all [place] treatment facilities. Appointment Date/Time Appointment Type Appointme nt Facility Name Jul 30, 2024 10:00 AM AMBULATORY - MEDICINE [facility] Jul 30, 2024 10:30 AM AMBULATORY - PSYCHIATRY [facility] Aug 28, 2024 11:00 AM AMBULATORY - PSYCHIATRY [facility] Sep 12, 2024 10:00 AM AMBULATORY - MEDICINE [facility] October 24, 2024 02:00 PM AMBULATORY - MEDICINE [facility] Active, Pending, and Scheduled Orders This section includes a listing of several types of active, pending, and scheduled orders, including clinic medications orders, diagnostic test orders, procedure orders and consult orders; where the start date of the order is 45 days before the date of the Encounter or 45 days after the date of theEncounter. The data comes from all [place] treatment facilities. Test Date/Time Test Type Test Details Facility Name Jun 28, 2024 03:38 PM Consult Order EKG TRACIN G/SPOPC OUTPT Cons [facility] [place] Jul 16, 2024 02:18 PM Consult Order COMMUNITY CARE-COLONOSCOPY SCREENING WITH EGD Cons [facility] Lab Results: +/- 30 days of the encounter This section includes the Chemistry and Hematology Lab Results on record with [place] for the patient. Radiology Reports and Pathology Reports are provided separately, in subsequent sections. Lab Results This section contains the Chemistry/Hematology Results that were resulted 30 days before or 30 daysafter the date of the Encounter. Date/Time Source Result Type Result - Unit Interpretation Reference Range Comment Jul 16, 2024 01:28 PM [place] LIVER FUNCTION Specimen Type: SERUM No comment entered. Ordering Provider: RASHAWN LOCO Report Released Date/Time: Jun 28, 2024 12:42 PM Reporting Lab: [address] [address] Performing Lab: [address] [address] PROTEIN,TOTAL 8.6 g/dL H 6.0-8.3 ALBUMIN 3.9 g/dL 3.5-5.0 ALKALINE PHOSPHATASE 98 U/L 40-150 AST 66 U/L H 5-34 ALT 42 U/L BILIRUBIN, TOTAL 0.4 mg/dL 0.2-1.2 Jul 16, 2024 01:28 PM [place] MAGNESIUM Specimen Type: SERUM No comment entered. Ordering Provider: JARROD KOHLER Report Released Date/Time: Jul 16, 2024 01:10 PM Reporting Lab: [address] [address] Performing Lab: [address] [address] MAGNESIUM 1.4 mg/dL L 1.6-2.6 Jul 16, 2024 01:28 PM [place] LIPID PANEL, NON FASTING Specimen Type: SERUM No comment entered. Ordering Provider: JARROD KOHLER Report Released Date/Time: Jul 16, 2024 01:10 PM Reporting Lab: [facility] [address] [address] Performing Lab: [address] [address] CHOLESTEROL 197 mg/dL TRIGLYCERIDE 79 mg/dL 0-150 LDL calculated 119 mg/dL 0-129 CHOL/HDL 3.2 HDL CHOLESTEROL 62 mg/dL H 40-60 Jul 16, 2024 01:28 PM [place] BASIC METABOLIC PANEL (non-fasting) Spe cimen Type: SERUM No comment entered. Ordering Provider: JARROD KOHLER Report Released Date/Time: Jul 16, 2024 01:10 PM Reporting Lab: [address] [address] Performing Lab: [address] [address] UREA NITROGEN 7 mg/dL 7-25 GLUCOSE 136 mg/dL H 65-100 SODIUM 138 mmol/L 135-145 POTASSIUM 3.6 mmol/L 3.5-5.0 CHLORIDE 104 mmol/L 100-110 CO2 23 meq/L 20-30 CREATININE, Serum 0.99 mg/dL 0.50-1.40 eGFR(CKD-EPI 2020) 89 mL/min >60 Jul 16, 2024 01:28 PM [place] CBC Specimen Type: BLOOD No comment entered. Ordering Provider: JARROD KOHLER Report Released Date/Time: Jul 16, 2024 01:10 PM Reporting Lab: [address] [address] Performing Lab: [address] [address] WBC 4.47 10*3/uL L 4.50-11.00 RBC 4.95 [...] and tobacco- related health factors from the [place] facility where the Encounter took place. Current Smoking Status This section includes the most current smoking, or tobacco-related health factor, from the [place] facility where the Encounter took place. Date/Time Current Smoking Status Comment Facil ity Feb 18, 2022 02:51 PM [facility] ADMIT TOBACCO SCREEN NO [facility] Tobacco Use History This section includes a history of the smoking, or tobacco-related health factors, that were collected on or before the date of the Encounter. The data comes from the [place] facility where the Encounter took place. Date/Time Smoking Status/Tobacco Use Comment F acility Feb 18, 2022 09:30 AM [place]-TOBACCO NEVER USED [facility] Advance Directives: All historical and current Section Date Range: From patient's date of to the date document was created. This section includes ALL of a patient's completed or amended [place] Advance and Rescinded Directives. The entries below indicate that a directive exists for the patient, but an actual copy is not included with this document. The data comes from all [place] facilities. Date Advance Directives Provider Source Nov 22, 2022 ADVANCE DIRECTIVE DISCUSSION RAFAELA MANRIQUEZ [facility] Apr 20, 2022 ADVANCE DIRECTIVE SIN WHARTON
--- OUTSIDE RECORDS SUMMARY | 2024-08-14 17:15 | XMS_ITS | Encounter Summary ---
Author Name [facility] [place] Address [address] [place] [address] Care Team Providers Care Administrative Judge Name Role Phone KOHLER JARROD Primary Care Provider Unavailabl e Insurance [...] Christianson's Name Patient's Relationship to Policy Christianson [facility] CE ORGANIZAT ION HEALT [facility] Dec 11, 2023 [id number] [phone] NALLELY,LAWRENCE ID PATIENT [facility] CE ORGANIZAT ION FAIRV IEW COMMO NS Nov 24, 2021 [id number] [phone] NALLELY,LAWRENCE ID PATIENT [facility] CE ORGANIZAT ION [facility] Sep 11, 2019 [id number] [phone] NALLELY,LAWRENCE ID PATIENT [facility] CE ORGANIZAT ION FAIRV IEW COMMO NS Apr 12, 2012 [id number] [phone] NALLELY,LAWRENCE ID PATIENT OPTUM RX PRESCRIPT ION [facility] May 14, 2024 [facility] [id number] [id number] NALLELY,LAWRENCE ID PATIENT OPTUM RX PRESCRIPT ION HDHP/ HSA Nov 24, 2021 [facility] [id number] [id number] NALLELY,LAWRENCE ID PATIENT OPTUM RX PRESCRIPT ION [facility]ALT [facility] [place] [place] Nov 24, 2021 [facility] [id number] [id number] NALLELY,LAWRENCE ID PATIENT OPTUM RX PRESCRIPT ION HEALT H [facility] Sep 11, 2019 [facility] [id number] [phone] NALLELY,LAWRENCE ID PATIENT OPTUM RX PRESCRIPT ION HEALT H [place] Aug 17, 2004 NONE [id number] NALLELY,LAWRENCE ID PATIENT Selected Encounter This section includes the information on record at [place] for the Encounter. Date/Time Encounter Type Encounter Description Reason Pro vider Source Jul 16, 2024 01:15 PM Outpatient Encounter EKG IHE Encounter Template Text not used by [place] Plan of Treatment: Future Appointments (+ 6 months) and Future Tests (+/- 45 days) The Plan of Treatment section includes future care activities for the patient from all [place] treatment[facility] center. This section includes future appointments and future orders which are active, pending or scheduled. Future Appointments This section includes appointments that were scheduled to occur 6 months from the date of the Encounter, up to a maximum of 20 appointments. The data comes from all [place] treatment facilities. Appointment Date/Time Appointment Type Appointme nt Facility Name Jul 30, 2024 10:00 AM AMBULATORY - MEDICINE [facility] Jul 30, 2024 10:30 AM AMBULATORY - PSYCHIATRY [facility] Aug 28, 2024 11:00 AM AMBULATORY - PSYCHIATRY [facility] Sep 12, 2024 10:00 AM AMBULATORY - MEDICINE [facility] October 24, 2024 02:00 PM AMBULATORY [...] of theEncounter. The data comes from all [facility]. Test Date/Time Test Type Test Details Facility Name Jun 28, 2024 03:38 PM Consult Order EKG TRACIN G/SPOPC OUTPT Cons [facility] [place] Jul 16, 2024 02:18 PM Consult Order COMMUNITY CARE-COLONOSCOPY SCREENING WITH EGD Cons [facility] Lab Results: +/- 30 days of the encounter This section includes the Chemistry and Hematology Lab Results on record with [place] for the patient. Radiology Reports and Pathology Reports are provided separately, in subsequent sections. Lab Results This section contains the Chemistry/Hematology Results that were resulted 30 days before or 30 daysafter the date of the Encounter. Date/Time Source Result Type Result - Unit Interpretation Reference Range Comment Jul 16, 2024 01:28 PM [place] LIVER FUNCTION Specimen Type: SERUM No comment entered. Ordering Provider: RASHAWN LOCO Report Released Date/Time: Jun 28, 2024 12:42 PM Reporting Lab: [address] [address] Performing Lab: [address] [address] PROTEIN,TOTAL 8.6 g/dL H 6.0-8.3 ALBUMIN 3.9 g/dL 3.5-5.0 ALKALINE PHOSPHATASE 98 U/L 40-150 AST 66 U/L H 5-34 ALT 42 U/L BILIRUBIN, TOTAL 0.4 mg/dL 0.2-1.2 Jul 16, 2024 01:28 PM [facility] MAGNESIUM Specimen Type: SERUM No comment entered. Ordering Provider: JARROD KOHLER Report Released Date/Time: Jul 16, 2024 01:10 PM Reporting Lab: [address] [address] Performing Lab: [address] [address] MAGNESIUM 1.4 mg/dL L 1.6-2.6 Jul 16, 2024 01:28 PM [facility] BASIC METABOLIC PANEL (non-fasting) Spe cimen Type: SERUM No comment entered. Ordering Provider: JARROD KOHLER Report Released Date/Time: Jul 16, 2024 01:10 PM Reporting Lab: [address] [address] Performing Lab: [address] [address] UREA NITROGEN 7 mg/dL 7-25 GLUCOSE 136 mg/dL H 65-100 SODIUM 138 mmol/L 135-145 POTASSIUM 3.6 mmol/L 3.5-5.0 CHLORIDE 104 mmol/L 100-110 CO2 23 meq/L 20-30 CREATININE, Serum 0.99 mg/dL 0.50-1.40 eGFR(CKD-EPI 2020) 89 mL/min >60 Jul 16, 2024 01:28 PM [place] LIPID PANEL, NON FASTING Specimen Type: SERUM No comment entered. Ordering Provider: JARROD KOHLER Report Released Date/Time: Jul 16, 2024 01:10 PM Reporting Lab: [address] [address] Performing Lab: [address] [address] CHOLESTEROL 197 mg/dL TRIGLYCERIDE 79 mg/dL 0-150 LDL calculated 119 mg/dL 0-129 CHOL/HDL 3.2 HDL CHOLESTEROL 62 mg/dL H 40-60 Jul 16, 2024 01:28 PM [facility] CBC Specimen Type: BLOOD No comment entered. Ordering Provider: JARROD KOHLER Report Released Date/Time: Jul 16, 2024 01:10 PM Reporting Lab: [address] [address] Performing Lab: [address] [address] WBC 4.47 10*3/uL L 4.50-11.00 RBC 4.95 [...] PM 97.9 82 186/96 98 183 31 [facility] IE Social History: Smoking Status (Most current) and Tobacco Use (All prior to encounter date) This section includes the most current, and the historical, smoking and tobacco- related health factors from the [place] facility where the Encounter took place. Current Smoking Status This section includes the most current smoking, or tobacco-related health factor, from the [place] facility where the Encounter took place. Date/Time Current Smoking Status Comment Facil ity Jul 16, 2024 01:30 PM VA-TOBACCO NEVER USED CIGAR[facility] [place] Tobacco Use History This section includes a history of the smoking, or tobacco-related health factors, that were collected on or before the date of the Encounter. The data comes from the [place] facility where the Encounter took place. Date/Time Smoking Status/Tobacco Use Comment F acility Jul 16, 2024 01:30 PM [place]-TOBACCO NEVER USED OTHER TYPE [place] Advance Directives: All historical and current Section Date Range: From patient's date of to the date document was created. This section includes ALL of a patient's completed or amended [place] Advance and Rescinded Directives. The entries below indicate that a directive exists for the patient, but an actual copy is not included with this document. The data comes from all [place] facilities. Date Advance Directives Provider Source Nov 22, 2022 ADVANCE DIRECTIVE DISCUSSION RAFAELA MANRIQUEZ [facility] Apr 20, 2022 ADVANCE DIRECTIVE SIN WHARTON [facility] IE Encounter Notes: All associated encounter notes This section contains the clinical notes associated to the Encounter. Date/Time Encounter Note(s) Provider Source Jul 16, 2024 01:15 PM ADMINISTRATIVE NOT E: LOCAL TITLE: ADMINISTRATIVE NOTE STANDARD TITLE: ADMINISTRATIVE NOTE DATE OF NOTE: JUL 16, 2024@13:15 ENTRY DATE: AUG 09, 2024@08:38:57 AUTHOR: ATA THOMAS EXP COSIGNER: URGENCY: STATUS: COMPLETED [place] was a no show for today's scheduled appointment. /gustabo/ TAA THOMAS LPN LPN Signed: 08/09/2024 08:39 Receipt Acknowledged By: 08/13/2024 13:15 /es/ LOLA MURRELL ADVANCE ENVIRONMENTAL DEPARTMENT MANAGER ATA THOMAS
--- OUTSIDE RECORDS SUMMARY | 2024-08-14 17:15 | XMS_ITS | Encounter Summary ---
Author Name [place] Address [address] [place] [id number] Care Team Providers Care Burner Hand Name Role Phone JARROD KOHLER Primary Care [...] Christianson's Name Patient's Relationship to Policy Christianson [facility] CE ORGANIZAT ION [facility] Dec 11, 2023 [id number] [phone] NALLELY,LAWRENCE ID PATIENT [facility] CE ORGANIZAT ION FAIRV IEW COMMO NS Nov 24, 2021 [id number] [phone] NALLELY,LAWRENCE ID PATIENT [facility] CE ORGANIZAT ION [facility] Sep 11, 2019 [id number] [phone] NALLELY,LAWRENCE ID PATIENT [facility] CE ORGANIZAT ION FAIRV IEW COMMO NS Apr 12, 2012 [id number] [phone] NALLELY,LAWRENCE ID PATIENT OPTUM RX PRESCRIPT ION [facility]RA[facility] PEE May 14, 2024 [facility] [id number] NALLELY,LAWRENCE ID PATIENT OPTUM RX PRESCRIPT ION HDHP/ HSA Nov 24, 2021 [facility] [id number] NALLELY,LAWRENCE ID PATIENT OPTUM RX PRESCRIPT ION [facility]ALT [facility] [place] Nov 24, 2021 [facility] [id number] NALLELY,LAWRENCE ID PATIENT OPTUM RX PRESCRIPT ION [facility]ALT [facility] [place] Sep 11, 2019 [facility] [id number] NALLELY,LAWRENCE ID PATIENT OPTUM RX PRESCRIPT ION HEALT H [place] Aug 17, 2004 NONE [id number] NALLELY,LAWRENCE ID PATIENT Selected Encounter This section includes the information on record at [place] for the Encounter. Date/Time Encounter Type Encounter Description Reason Provider Source October 24, 2023 10:00 AM NALTREXONE, DEPOT FORM [facility] - IND ICD-10-CM F10.230 Alcohol dependence with withdrawal, uncomplicated OSCAR GILL Encounter Template Text not used by [place] Assessments - Encounter Diagnoses This section includes the primary and secondary diagnoses documented for the Encounter. Date/Time Primary/Secondary Diagnosis Diagnosis Name Provider Source October 24, 2023 12:44 PM PRIMARY Alcohol dependence with withdrawal, uncomplicated OSCAR GILL Plan of Treatment: Future Appointments (+ 6 [...] 24, 2023 11:00 AM [facility] Nov 24, 2023 11:45 AM [facility] Nov 24, 2023 12:00 PM [facility] Nov 28, 2023 11:00 AM [facility]ATORY - [facility] 2023 08:30 AM [facility] Jan 30, 2024 01:00 PM [facility] Feb 29, 2024 10:00 AM [facility] Mar 01, 2024 09:30 AM AMBULATORY - PSYCHIATRY [facility] Mar 28, 2024 11:00 AM [facility] Apr 25, 2024 01:00 PM AMBULATORY - PSYCHIATRY [facility] Active, Pending, and Scheduled Orders This section includes a listing of several types of active, pending, and scheduled orders, including clinic medications orders, diagnostic test orders, procedure orders and consult orders; where the start date of the order is 45 days before the date of the Encounter or 45 days after the date of theEncounter. The data comes from all [place] treatment facilities. Test Date/Time Test Type Test Details Facility Name November 06, 2023 12:00 AM Laboratory - Chemi stry Order VITAMIN D (25-OH) BLOOD (SST-SERUM) [facility] Advance Directives: All historical and current Section Date Range: From patient's date of to the date document was created. This section includes ALL of a patient's completed or amended [place] Advance and Rescinded Directives. The entries below indicate that a directive exists for the patient, but an actual copy is not included with this document. The data comes from all [place] facilities. Date Advance Directives Provider Source Nov 22, 2022 ADVANCE DIRECTIVE DISCUSSION RAFAELA MANRIQUEZ [facility] Apr 20, 2022 ADVANCE DIRECTIVE SIN [facility] [place] Encounter Notes: All associated encounter notes This section contains the clinical notes associated to the Encounter. Date/Time Encounter Note(s) Provider Source October 24, 2023 02:43 PM ADDENDUM: LOCAL TITLE: Addendum STANDARD TITLE: ADDENDUM DATE OF NOTE: OCTOBER 24, 2023@14:43:21 ENTRY DATE: OCTOBER 24, 2023@14:43:22 AUTHOR: OSCAR GILL COSIGNER: URGENCY: STATUS: COMPLETED RTC 11/20 11 am /gustabo/ OSCAR GILL Registered Nurse Signed: 10/24/2023 14:43 Receipt Acknowledged By: 10/25/2023 08:20 /es/ ENRRIQUE YUAN ADVANCED MULTI OPERATION FORMING MACHINE SETTER 10/24/2023 15:08 /es/ Jessi Clinton ADVANCED MULTI OPERATION FORMING MACHINE SETTER --- Original Document --- 10/24/23 NALTREXONE INJECTION NOTE (T): Patient Identity Verified By:Full SSN, Date of , Full Name Medication Ordered by:Dr. Ortiz Reason for Injection (Specify Diagnosis): Alcohol dependence Date of last injection: Sep Injection Details: Medication:Vivitrol Lot number: [id number] Expiration date: Dosage: 380 mg Injection Site:Right Glute SVSO - Vital Select Outpat. Measurement DT TEMP RESP PULSE POx BP F(C) (L/MIN)(%) 10/24/2023 12:33 18 82 96 165/93 LAB RESULTS LAST 1440 HRS - NONE FOUND Active problems - Computerized Problem List is the source for the followin. Vitamin D Deficiency ([facility] [id number]) 2. Thrombocytopenia 3. Esophagitis 4. colon cancer screening 5. Erectile dysfunction 6. eGD 7. Exposure to potentially hazardous substance 8. Esophageal stricture 9. Migraine with Aura ([facility] [id number]) 10. Homeless 11. Dysphagia 12. Depression 13. [...] BEDTIME NALTREXONE(EQV-VIVITROL)380MG/NAVEED SA INJ INJECT 1 VIAL HOLD (380MG) INTRAMUSCULARLY EVERY FOUR WEEKS FOR ALCOHOLISM [...] CAP 20MG BY MOUTH TWICE DAILY ACTIVE 12/08/2023 10:00 CWM/SO/PACT 2 Injection Narrative: Jarrod Browning is a 57 year old male who presents to this Nursing Clinic today for Vivitrol administration per Dr. Ortiz for ETOH dependence. This appointment is for an injection of extended-release Naltrexone and support for safe coping in regards to his diagnoses of Posttraumatic Stress Disorder and Alcohol Dependence in remission. Jarrod is known to personal lines underwriter and presents well groomed, friendly, and oriented to person, place, time, and situation. Jarrod denies SI/HI and or the use of any alcohol in 2 weeks or illicit drugs (at all). He is 2 weeks late for his Vivitrol injection. He said he had a slip up , and had 3 beers after a hockey game 2 weeks ago. He felt very guilty about this. He denies any alcohol use since that day. Administered Vivitrol 380mg IM at ROOM temperature in the Right gluteal while patient was STANDING non weight bearing, patient preference - given without adverse effects per order of Dr. Ortiz. PATIENT EDUCATION: Kempton denies side effects from medication. Kempton acknowledges understanding of education offered regarding Naltrexone: it blocks opioid receptor sites and they will not experience a sense of euphoria if they use alcohol or opioids, it will reduce effectiveness of opioid pain analgesics, and they should abstain from alcohol and illicit drugs as part of long-acting Naltrexone treatment. Kempton acknowledges understanding the possibility of significant injection site reactions that occur in a small percentage of patients who receive Vivitrol . acknowledges understanding that they should seek medical attention if injection site becomes increasingly painful, hard, swollen, red or hot. Kempton has read and signed the Vivitrol IMed consent. They have been offered a Vivitrol Patient Safety Card and/or Vivitrol ID Bracelet in case of need for emergency pain management. Date of next injection: November 20 at 1100 Next Physician's/Provider's appointment: TBD understands how to utilize the [facility] Crisis Line (9-8-8 option 1) and urged to call that number at any time if they have thoughts about suicide and, or to call 911 or go to nearest E.R. if they have suicidal thoughts. was provided the date/time of next medication administration appointment, as well as personal lines underwriter's contact information. If Kempton has any questions, concerns, or changes in current health status will call or [facility]. 30 min(s) spent in patient care and education. /gustabo/ OSCRA GILL Registered Nurse Signed: 10/24/2023 12:44 OSCAR GILL October 24, 2023 12:34 PM MENTAL HEALTH NOTE : LOCAL TITLE: NALTREXONE INJECTION NOTE (T) STANDARD TITLE: MENTAL HEALTH NOTE DATE OF NOTE: OCTOBER 24, 2023@12:34 ENTRY DATE: OCTOBER 24, 2023@12:35:08 AUTHOR: OSCAR GILL EXP COSIGNER: URGENCY: STATUS: COMPLETED NALTREXONE INJECTION NOTE (T) Has ADDENDA Patient Identity Verified By:Full SSN, Date of , Full Name Medication Ordered by:Dr. Ortiz Reason for Injection (Specify Diagnosis): Alcohol dependence Date of last injection: Sep Injection Details: Medication:Vivitrol Lot number: [id number] Expiration date: Dosage: 380 mg Injection Site:Right Glute SVSO - Vital Select Outpat. Measurement DT TEMP RESP PULSE POx BP F(C) (L/MIN)(%) 10/24/2023 12:33 18 82 96 165/93 LAB RESULTS LAST 1440 HRS - NONE FOUND Active problems - Computerized Problem List is the source for the followin. Vitamin D Deficiency ([facility] [id number]) 2. Thrombocytopenia 3. Esophagitis 4. colon cancer screening 5. Erectile dysfunction 6. eGD 7. Exposure to potentially hazardous substance 8. Esophageal stricture 9. Migraine with Aura ([facility] [id number]) 10. Homeless 11. Dysphagia 12. Depression 13. [...] BEDTIME NALTREXONE(EQV-VIVITROL)380MG/NAVEED SA INJ INJECT 1 VIAL HOLD (380MG) INTRAMUSCULARLY EVERY FOUR WEEKS FOR ALCOHOLISM [...] CAP 20MG BY MOUTH TWICE DAILY ACTIVE 12/08/2023 10:00 CWM/SO/PACT 2 Injection Narrative: Jarrod Browning is a 57 year old male who presents to this Nursing Clinic today for Vivitrol administration per Dr. Ortiz for ETOH dependence. This appointment is for an injection of extended-release Naltrexone and support for safe coping in regards to his diagnoses of Posttraumatic Stress Disorder and Alcohol Dependence in remission. Jarrod is known to personal lines underwriter and presents well groomed, friendly, and oriented to person, place, time, and situation. Jarrod denies SI/HI and or the use of any alcohol in 2 weeks or illicit drugs (at all). He is 2 weeks late for his Vivitrol injection. He said he had a slip up , and had 3 beers after a hockey game 2 weeks ago. He felt very guilty about this. He denies any alcohol use since that day. Administered Vivitrol 380mg IM at ROOM temperature in the Right gluteal while patient was STANDING non weight bearing, patient preference - given without adverse effects per order of Dr. Ortiz. PATIENT EDUCATION: Kempton denies side effects from medication. Kempton acknowledges understanding of education offered regarding Naltrexone: [...] emergency pain management. Date of next injection: November 20 at 1100 Next Physician's/Provider's appointment: TBD understands how to utilize the [facility] Crisis [facility] (9-8-8 option 1) and urged to call that number at any time if they have thoughts about suicide and, or to call 911 or go to nearest E.R. if they have suicidal thoughts. was provided the date/time of next medication administration appointment, as well as personal lines underwriter's contact information. If has any questions, concerns, or changes in current health status will call or come [facility] to the [facility]. 30 min(s) spent in patient care and education. /cory GILL Registered Nurse Signed: 10/24/2023 12:44 10/24/2023 ADDENDUM STATUS: COMPLETED RTC 11/20 11 am /cory GILL Registered Nurse Signed: 10/24/2023 14:43 Receipt Acknowledged By: * AWAITING SIGNATURE * ENRRIQUE YUAN * AWAITING SIGNATURE * JESSI CLINTON [place]
--- OUTSIDE RECORDS SUMMARY | 2024-08-14 17:15 | XMS_ITS | Encounter Summary ---
Author Name [facility] [place] Address [address] [place] [id number] Care Team Providers Care Accounting Software Specialist Name Role Phone JOSE F JARROD [...] Christianson's Name Patient's Relationship to Policy Christianson [facility] CE ORGANIZAT ION [facility] Dec 11, 2023 [id number] [phone] NALLELY,LAWRENCE ID PATIENT [facility] CE ORGANIZAT ION FAIRV IEW COMMO NS Nov 24, 2021 [id number] [phone] NALLELY,LAWRENCE ID PATIENT [facility] CE ORGANIZAT ION [facility] Sep 11, 2019 [id number] [phone] NALLELY,LAWRENCE ID PATIENT [facility] CE ORGANIZAT ION FAIRV IEW COMMO NS Apr 12, 2012 [id number] [phone] NALLELY,LAWRENCE ID PATIENT OPTUM RX PRESCRIPT ION [facility] PEE May 14, 2024 [facility] [id number] [id number] NALLELY,LAWRENCE ID PATIENT OPTUM RX PRESCRIPT ION HDHP/ HSA Nov 24, 2021 [facility] [id number] NALLELY,LAWRENCE ID PATIENT OPTUM RX PRESCRIPT ION [facility]ALT [facility] [place] Nov 24, 2021 [facility] [id number] [phone] NALLELY,LAWRENCE ID PATIENT OPTUM RX PRESCRIPT ION [place]ALT [place] Sep 11, 2019 [facility] [id number] NALLELY,LAWRENCE ID PATIENT OPTUM RX PRESCRIPT ION HEALT H [place] Aug 17, 2004 NONE [id number] [phone] NALLELY,LAWRENCE ID PATIENT Selected Encounter This section includes the information on record at [place] for the Encounter. Date/Time Encounter Type Encounter Description Reason Provider Source Sep 01, 2023 10:00 AM GROUP PSYCHOTHERAPY [facility] ICD-10-CM F43.12 Post-traumati c stress disorder, chronic CHARLENE COLLIER Marilyn Encounter Template Text not used by [place] Assessments - Encounter Diagnoses This section includes the primary and secondary diagnoses documented for the Encounter. Date/Time Primary/Secondary Diagnosis Diagnosis Name Provider Source Sep 01, 2023 04:12 PM PRIMARY Post-traumatic stress disorder, chronic CHARLENE COLLIER DORA Plan of Treatment: Future Appointments (+ 6 months) and Future Tests (+/- 45 days) The Plan of Treatment section includes future care activities for the patient from all [place] treatmentfacilities. This section includes future appointments and future orders which are active, pending or scheduled. Future Appointments This section includes appointments that were scheduled to occur 6 months from the date of the Encounter, up to a maximum of 20 appointments. The data comes from all [place] treatment facilities. Appointment Date/Time Appointment Type Appointme nt Facility Name Sep 11, 2023 10:30 AM AMBULATORY - MEDICINE [facility] Sep 11, 2023 11:00 AM AMBULATORY - PSYCHIATRY [facility] October 24, 2023 10:00 AM [facility] October 24, 2023 11:00 AM AMBULATORY - PSYCHIATRY [facility] Nov 24, 2023 11:00 AM [facility] Nov 24, 2023 11:45 AM AM[facility]UL[facility]ICINE [facility] Nov 24, 2023 12:00 PM AMBULATORY [facility] Nov 28, 2023 11:00 AM AMBULATORY - [facility]ICINE [facility] 2023 08:30 AM AM[facility] Jan 30, 2024 01:00 PM AM[facility] Feb 29, 2024 10:00 AM AMBULATORY - PSYCHIATRY [facility] Mar 01, 2024 09:30 AM AMBULATORY - PSYCHIATRY [facility] Vital Signs: All taken on the encounter date This section contains inpatient and outpatient Vital Signs collected on the date of the Encounter. Date/Time Temperature Pulse Blood Pressure Respiratory Rate SP02 Pain Height Weight Body Mass Index Source Sep 01, 2023 11:26 AM 98 62 141/72 18 97 0 65 185 31 [place] Advance Directives: All historical and current Section Date Range: From patient's date of to the date document was created. This section includes ALL of a patient's completed or amended [place] Advance and Rescinded Directives. The entries below indicate that a directive exists for the patient, but an actual copy is not included with this document. The data comes from all [place] facilities. Date Advance Directives Provider Source Nov 22, 2022 ADVANCE DIRECTIVE DISCUSSION RAFAELA MANRIQUEZ [facility] Apr 20, 2022 ADVANCE DIRECTIVE SIN [facility] [place] Encounter Notes: All associated encounter notes This section contains the clinical notes associated to the Encounter. Date/Time Encounter Note(s) Provider Source Sep 01, 2023 03:01 PM SOCIAL WORK GROUP COUNSELING NOTE: LOCAL TITLE: SOCIAL WORK GROUP NOTE STANDARD TITLE: SOCIAL WORK GROUP COUNSELING NOTE DATE OF NOTE: SEP 01, 2023@15:01 ENTRY DATE: SEP 01, 2023@15:02:04 AUTHOR: CHARLENE COLLIER COSIGNER: ALENA DIAS URGENCY: STATUS: COMPLETED 60 min psychotherapy group 6 members attended today's group. Intervention: The is currently participating in the Relapse Prevention group. Treatment specifically targets patient's substance use disorder and co- occurring psychiatric disorder. Intervention includes supportive and skills based therapy in order to reduce the risk of relapse. The following topic(s) were covered during the current visit: A continuing exploration of how radical acceptance intersects with the CBT [place] and effects thoughts, feelings, and behaviors. Participation: This was actively engaged in the group today, and contributed to the discussion by sharing personal experience, strength, and hope around challenging negative thought patterns and cognitive distortions. Behavioral observations/mental status/mood: This 's observed and reported mood was stable, affect was full range, and is assessed to be of no current risk to self/others. Diagnoses: Chronic post-traumatic stress disorder ([facility] [id number]) - Post-traumatic stress disorder, chronic (ICD-10-CM F43.12) (Primary) /gustabo/ FRANKIE CIFUENTES [employer] Signed: 09/01/2023 16:12 /gustabo/ Alena Dias Psy.D. LACQUER COATER, CLINICAL PSYCHOLOGIST Cosigned: 09/06/2023 08:08 CHARLENE COLLIER
--- OUTSIDE RECORDS SUMMARY | 2024-08-14 17:15 | XMS_ITS | Encounter Summary ---
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 Sep 11, 2019 [id number] [phone] NALLELY,LAWRENCE ID PATIENT [facility] CE ORGANIZAT ION FAIRV IEW COMMO NS Apr 12, 2012 [id number] [phone] NALLELY,LAWRENCE ID PATIENT OPTUM RX PRESCRIPT ION [facility] PEE May 14, 2024 [employer] [facility] [employer] [facility] [id number] [id number] NALLELY,LAWRENCE ID PATIENT OPTUM RX PRESCRIPT ION HDHP/ HSA Nov 24, 2021 [facility] [employer] [facility] [id number] NALLELY,LAWRENCE ID PATIENT OPTUM RX PRESCRIPT ION HEALT H [place] Nov 24, 2021 [facility] [employer] [facility] [employer] [facility] [id number] [id number] NALLELY,LAWRENCE ID PATIENT OPTUM RX PRESCRIPT ION HEALT H NEW [facility] Sep 11, 2019 [employer] [facility] [employer] [facility] [id number] NALLELY,LAWRENCE ID PATIENT OPTUM RX PRESCRIPT [facility]ON [facility] Aug 17, 2004 NONE [id number] NALLELY,LAWRENCE ID PATIENT Selected Encounter This section includes the information on record at [place] for the Encounter. Date/Time Encounter Type Encounter Description Reason Pro vider Source Jun 11, 2024 02:05 PM Outpatient Encounter [facility] Encounter Template Text not used by [place] Plan of Treatment: Future Appointments (+ 6 months) and Future Tests (+/- 45 days) The Plan of Treatment section includes future care activities for the patient from all [place] treatmentfacilst. [facility]. This section includes future appointments and future orders which are active, pending or scheduled. Future Appointments This section includes appointments that were scheduled to occur 6 months from the date of the Encounter, up to a maximum of 20 appointments. The data comes from all [place] treatment facilities. Appointment Date/Time Appointment Type Appointme nt Facility Name Jun 28, 2024 11:30 AM AMBULATORY - [facility]ATRY [facility] Jun 28, 2024 12:00 PM [facility] [place] [facility] Jun 28, 2024 12:45 PM AMBULATORY - MEDICINE [facility] Jul 16, 2024 01:15 PM AMBULATORY - MEDICINE [facility] Jul 16, 2024 01:30 PM AMBULATORY - MEDICINE [facility] Jul 30, 2024 10:00 AM AMBULATORY - MEDICINE [facility] [place] [facility] Jul 30, 2024 10:30 AM AMBULATORY - PSYCHIATRY [facility] [place] [facility] Aug 28, 2024 11:00 AM AMBULATORY - PSYCHIATRY [facility] Sep 12, 2024 10:00 AM AM[facility]ULATORY [facility] MEDIC[facility] October 24, 2024 02:00 PM AMBULATORY - MEDICINE [facility] Active, Pending, and Scheduled Orders This section includes a listing of several types of active, pending, and scheduled orders, including clinic medications orders, diagnostic test orders, procedure orders and consult orders; where the start date of the order is 45 days before the date of the Encounter or 45 days after the date of theEncounter. The data comes from all [place] treatment facilities. Test Date/Time Test Type Test Details Facility Name Jun 28, 2024 03:38 PM Consult Order EKG TRACIN G/SPOPC OUTPT [facility] Jul 16, 2024 02:18 PM Consult Order COMMUNITY CARE-COLONOS[facility]CREEN[facility] Advance Directives: All historical and current Section Date Range: From patient's date of to the date document was created. This section includes ALL of a patient's completed or amended [place] Advance and Rescinded Directives. The entries below indicate that a directive exists for the patient, but an actual copy is not included with this document. The data comes from all [place] facilities. Date Advance Directives Provider Source Nov 22, 2022 ADVANCE DIRECTIVE DISCUSSION RAFAELA MANRIQUEZ [facility] Apr 20, 2022 ADVANCE DIRECTIVE [place] Encounter Notes: All associated encounter notes This section contains the clinical notes associated to the Encounter. Date/Time Encounter Note(s) Provider Source Jun 11, 2024 02:05 PM ADMINISTRATIVE NOT E: LOCAL TITLE: ADMINISTRATIVE NOTE STANDARD TITLE: ADMINISTRATIVE NOTE DATE OF NOTE: JUN 11, 2024@14:05 ENTRY DATE: JUN 11, 2024@14:05:58 AUTHOR: JESSI CLINTON EXP COSIGNER: URGENCY: STATUS: COMPLETED Provider made first call attempt no show letter mailed 14 day letter mailed RTC Dc 06/25/2024 /gustabo/ Jessi Clinton ADVANCED BI TECHNICAL LEAD Signed: 06/11/2024 14:06 JESSI CLINTON
== END 2024-08-14 15:38 | disposition home or self-care (01) ==
PROVIDERS: PCP Nurse Practitioner Family; Visit Provider Nurse Practitioner Family
DX: I10 Essential (primary) hypertension (principal); G62.9 Polyneuropathy, unspecified

== ENCOUNTER → 2024-08-14 14:16 | Outpatient (BNVA) | payer OTHER, SELFPAY | PROVIDERS: PCP Nurse Practitioner Family; Visit Provider Nurse Practitioner Family | DX: I10 Essential (primary) hypertension (principal); G62.9 Polyneuropathy, unspecified | CPT/HCPCS: 96127 ==

== ENCOUNTER 2025-01-06 08:36 | Outpatient (AMB) | payer OTHER, SELFPAY ==
--- OUTSIDE RECORDS SUMMARY | 2024-07-30 06:30 | XMS_ITS | Encounter Summary ---
Author Name [facility] [place] [place] Organization [facility] [place] [place] Address [address] [place] [id number] Care Team Providers Care Package Delivery Room Service Runner Name Role Phone PERFECTO LI Primary Care Provider Unavailabl e Insurance Providers: All historical and current Section Date Range: From patient's date of to the date document was created. This section includes the names of all active insurance providers for the patient. Insurance Provider Type of Coverage Plan Name Start of Policy Coverage End of Policy Coverage Group Number Member ID Insurance Provider's Telephone Number Policy Christianson's Name Patient's Relationship to Policy Christianson [facility] CE ORGANIZAT ION [facility] Dec 11, 2023 [id number] NALLELY,LAWRENCE ID PATIENT [facility] CE ORGANIZAT ION FAIRV IEW COMMO NS Nov 24, 2021 [id number] NALLELY,LAWRENCE ID PATIENT [facility] CE ORGANIZAT ION [facility] Sep 11, 2019 [id number] NALLELY,LAWRENCE ID PATIENT [facility] CE ORGANIZAT ION FAIRV IEW COMMO NS Apr 12, 2012 [id number] NALLELY,LAWRENCE ID PATIENT OPTUM RX PRESCRIPT ION [facility] PEE May 14, 2024 [facility] [id number] NALLELY,LAWRENCE ID PATIENT OPTUM RX PRESCRIPT ION HDHP/ HSA Nov 24, 2021 [facility] [id number] NALLELY,LAWRENCE ID PATIENT OPTUM RX PRESCRIPT ION HEALT H [place] Nov 24, 2021 [facility] [id number] NALLELY,LAWRENCE ID PATIENT OPTUM RX PRESCRIPT ION HEALT H [facility] Sep 11, 2019 [facility] [id number] NALLELY,LAWRENCE ID PATIENT OPTUM RX PRESCRIPT ION [facility]ALT H [place] Aug 17, 2004 NONE [id number] NALLELY,LAWRENCE ID PATIENT Selected Encounter This section includes the information on record at [place] for the Encounter. Date/Time Encounter Type Encounter Description Reason Pro vider Source Jul 30, 2024 10:30 AM Outpatient Encounter [facility] Encounter Template Text not used by [place] Plan of Treatment: Future Appointments (+ 6 months) and Future Tests (+/- 45 days) The Plan of Treatment section includes future care activities for the patient from all [place] treatmentfacilities. This section includes future appointments and future orders which are active, pending or scheduled. Future Appointments This section includes appointments that were scheduled to occur 6 months from the date of the Encounter, up to a maximum of 20 appointments. The data comes from all [place] treatment facilities. Appointment Date/Time Appointment Type Appointme nt Facility Name Aug 16, 2024 11:00 AM AMBULATORY - MEDICINE [facility] [place] [facility] Aug 16, 2024 11:30 AM [place] [facility] [place] [facility] Aug 28, 2024 11:00 AM AMBULATORY - PSYCHIATRY [facility] Sep 12, 2024 10:00 AM AMBULATORY - MEDIC[facility] [facility] [place] [facility] Sep 18, 2024 11:30 AM [place] [facility] [place] [facility] Sep 24, 2024 10:00 AM AMBULATORY - MEDIC[facility] [facility] October 17, 2024 09:30 AM [place]ORY [place] [facility] [place] [facility] October 24, 2024 02:00 PM AMBULATORY - MEDICINE [facility] Dec 10, 2024 09:00 AM AMBULATORY - PSYCHIATRY [facility] Lab Results: +/- 30 days of the encounter This section includes the Chemistry and Hematology Lab Results on record with [place] for the patient. Radiology Reports and Pathology Reports are provided separately, in subsequent sections. Lab Results This section contains the Chemistry/Hematology Results that were resulted 30 days before or 30 daysafter the date of the Encounter. Date/Time Source Result Type Result - Unit Interpretation Reference Range Specimen Type Comment Jul 16, 2024 01:28 PM [facility] LIVER FUNCTION SERUM Specimen Type: SERUM No comment entered. Ordering Provider: FITO LOCO Report Released Date/Time: Jun 28, 2024 12:42 PM Reporting Lab: [address] [address] Performing Lab: [address] [address] PROTEIN,TOTAL 8.6 g/dL H 6.0-8.3 ALBUMIN 3.9 g/dL 3.5-5.0 ALKALINE PHOSPHATASE 98 U/L 40-150 AST 66 U/L H 5-34 ALT 42 U/L BILIRUBIN, TOTAL 0.4 mg/dL 0.2-1.2 Jul 16, 2024 01:28 PM [facility] MAGNESIUM SERUM ecimen Type: SERUM No comment entered. Ordering Provider: JARROD KOHLER Report Released Date/Time: Jul 16, 2024 01:10 PM Reporting Lab: [address] [address] Performing Lab: [address] [address] MAGNESIUM 1.4 mg/dL L 1.6-2.6 Jul 16, 2024 01:28 PM [facility] BASIC METABOLIC PANEL (non-fasting) SERUM Specimen Type: SERUM No comment entered. Ordering Provider: JARROD KOHLER Report Released Date/Time: Jul 16, 2024 01:10 PM Reporting Lab: [address] [address] Performing Lab: [address] [address] UREA NITROGEN 7 mg/dL 7-25 GLUCOSE 136 mg/dL H 65-100 SODIUM 138 mmol/L 135-145 POTASSIUM 3.6 mmol/L 3.5-5.0 CHLORIDE 104 mmol/L 100-110 CO2 23 meq/L 20-30 CREATININE, Serum 0.99 mg/dL 0.50-1.40 eGFR(CKD-EPI 2020) 89 mL/min >60 Jul 16, 2024 01:28 PM [facility] CBC BLOOD Sp ecimen Type: BLOOD No comment entered. Ordering Provider: JARROD KOHLER Report Released Date/Time: Jul 16, 2024 01:10 PM Reporting Lab: [address] [address] Performing Lab: [address] [address] WBC 4.47 10*3/uL L 4.50-11.00 RBC 4.95 10*6/uL 4.23-5.66 HGB 12.6 g/dL L 12.8-17 HCT 39.9 39.2-50.4 MCV 80.6 fL L 82-99 MCHC 31.6 g/dL 30.8-35.1 PLT 114 10*3/uL L 140-360 RDW-CV 13.2 12.0-16.0 MCH 25.5 pg L 26.2-32.6 Jul 16, 2024 01:28 PM [facility] LIPID PANEL, NON FASTING SERUM Specim en Type: SERUM No comment entered. Ordering Provider: JARROD KOHLER Report Released Date/Time: Jul 16, 2024 01:10 PM Reporting Lab: [address] [address] Performing Lab: [address] [address] CHOLESTEROL 197 mg/dL TRIGLYCERIDE 79 mg/dL 0-150 LDL calculated 119 mg/dL 0-129 CHOL/HDL 3.2 HDL CHOLESTEROL 62 mg/dL H 40-60 Social History: Smoking Status (Most current) and Tobacco Use (All prior to encounter date) This section includes the most current, and the historical, smoking and tobacco- related health factors from the [place] facility where the Encounter took place. Current Smoking Status This section includes the most current smoking, or tobacco-related health factor, from the [place] facility where the Encounter took place. Date/Time Current Smoking Status Comment Taz ity Jul 16, 2024 01:30 PM VA-TOBACCO NEVER USED CIGARETTES [facility] Tobacco Use History This section includes a history of the smoking, or tobacco-related health factors, that were collected on or before the date of the Encounter. The data comes from the [place] facility where the Encounter took place. Date/Time Smoking Status/Tobacco Use Comment F acility Jul 16, 2024 01:30 PM [place]-TOBACCO NEVER USED OTHER TYPE [facility] Advance Directives: All historical and current Section Date Range: From patient's date of to the date document was created. This section includes ALL of a patient's completed or amended [place] Advance and Rescinded Directives. The entries below indicate that a directive exists for the patient, but an actual copy is not included with this document. The data comes from all [facility]. Date Advance Directives Provider Source Nov 22, 2022 ADVANCE DIRECTIVE DISCUSSION RAFAELA MANRIQUEZ [facility] Apr 20, 2022 ADVANCE DIRECTIVE SIN WHARTON [facility] Encounter Notes: All associated encounter notes This section contains the clinical notes associated to the Encounter. Date/Time Encounter Note(s) Provider Source Jul 30, 2024 12:59 PM CLERICAL NOTE: LOCAL TITLE: APPOINTMENT NO SHOW STANDARD TITLE: CLERICAL NOTE DATE OF NOTE: JUL 30, 2024@12:59 ENTRY DATE: JUL 30, 2024@12:59:20 AUTHOR: OSCAR GILL COSIGNER: URGENCY: STATUS: COMPLETED APPOINTMENT NO SHOW Has ADDENDA Patient Name: JARROD BROWNING Patient SSN: [id number] Date and time of Appointment No show : 07/30/24 10:30 PATIENT PHONE - PHONE NUMBER [CELLULAR] - Patient's medical record was reviewed. Follow-up actions were determined and initiated: Please check/complete as applies: [X]Telephoned Directly [ ]Re-scheduled for next available appt [ ]Sent a N0-show letter ( must call for appointment) [ ]Other (Emergent/Overbook, etc.): Additional Comments: I called and left a VM with my direct contact information asking for a call back to re-schedule. Future Clinic Visits 08/28/2024 11:00 SPR MHC PSYTR 3 10/24/2024 14:00 SPR PACT 1 UI DEVELOPER /gustabo/ OSCAR GILL Registered Nurse Signed: 07/30/2024 12:59 Receipt Acknowledged By: 07/30/2024 13:08 /gustabo/ ENRRIQUE YUAN ADVANCED DEBUG TECHNICIAN 07/30/2024 ADDENDUM STATUS: COMPLETED appt marked ns and letter sent /gustabo/ ENRRIQUE YUAN ADVANCED DEBUG TECHNICIAN Signed: 07/30/2024 13:08 OSCAR GILL
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
[2025-01-06 08:41] VITALS: BP 122/72; PULSE 66; O2SAT 96; BMI 31.6
== END 2025-01-06 09:48 | disposition home or self-care (01) ==
PROVIDERS: PCP Nurse Practitioner Family; Visit Provider Psychiatry & Neurology Neurology
DX: G62.89 Other specified polyneuropathies (principal); G47.62 Sleep related leg cramps; G47.00 Insomnia, unspecified; G47.19 Other hypersomnia; G25.81 Restless legs syndrome
CPT/HCPCS: 99204; G2211

== ENCOUNTER → 2025-02-18 19:30 | Outpatient (REF) | payer OTHER, SELFPAY | LOC: HO.SL 19:30 | PROVIDERS: PCP Nurse Practitioner Family; Visit Provider Psychiatry & Neurology Neurology | DX: Z13.89 Encounter for screening for other disorder (principal) ==

== ENCOUNTER → 2025-02-18 21:22 | Outpatient (BNV) | payer OTHER, SELFPAY | PROVIDERS: PCP Nurse Practitioner Family; Visit Provider Psychiatry & Neurology Neurology | DX: G47.00 Insomnia, unspecified (principal) | CPT/HCPCS: 95810 ==